=== PATIENT | female | born 1950 | race Caucasian/White ===

== ENCOUNTER 2017-02-27 08:02 | Inpatient (IN) | payer OTHER, MEDICARE ==
[2017-02-27] VITALS (13 sets, daily range): BP systolic 123–143; BP diastolic 58–74; PULSE 79–96; TEMP 36.5–37.5; O2SAT 96–100; Ht 157.5 cm; Wt 94.2 kg
[~2017-02-27] VITALS: Ht 157.5 cm; Wt 94.2 kg
[~2017-02-27 08:02] MED LIST: ACT35 PO; ASPI81TA28 PO; ATRINS INH; BOSE125T PO; BRVIN NEB; BUPR-79 PO; CALC500C70 PO; CHOL100010 PO; CMD3 PO; FRRS300 PO; GLC/500 PO; HYDR-3419 PO; LPT10 PO; LSN25 PO; LSX20 PO; MULT-506 PO; OMEG10002 PO; PANT40TA PO; PARO1TAB29 PO; PLMINS INH; POTA10CA28 PO; PRED-301 PO; SILDINJ PO; XPNINS125 INH; bipap
--- NOTE | 2017-02-27 08:35 | EMERGENCY ROOM VISIT NOTE ---
History Report prepared by Emmanuel: Xi Jackson Under the Supervision of: Dr. Carter Mares M.D. First contact with patient: 08:20 Chief Complaint: HEMATURIA Stated Complaint: BLEEDING WHEN URINATION History of Present Illness The patient is a 67 year old female who presents to the Emergency Room with complaints of worsening hematuria that started over 1 week ago. The patient states that she is on Coumadin and her INR has been high so it is not too uncommon for her to experience hematuria. However, she states that the hematuria currently is worse than it usually is. She states that there are a lot of clots in her urine. The patient denies being in any pain. She denies increased urinary frequency and any pain with urination. The patient states that she does not get UTIs frequently. She is on 5 L of nasal cannula oxygen at baseline secondary pulmonary fibrosis and pulmonary hypertension. Source of History: patient Onset: over 1 week ago Position: other (bladder) Quality: other (hematuria) Timing: worsening Associated Symptoms: No urinary symptoms (increased frequency, burning with urination) Note: no pain Review of Systems All systems have been listed, reviewed, and are negative other than those previously mentioned. Please see Additional Medical History Sheet. Past Medical & Surgical Medical Problems: (1) Chronic respiratory failure with hypoxia and hypercapnia (2) Cor pulmonale (3) DM type 2 (diabetes mellitus, type 2) (4) Dyslipidemia (5) HTN (hypertension) (6) Pulmonary fibrosis (7) Pulmonary HTN Surgical Problems: (1) History of tonsillectomy Family History Cancer Heart disease Seizures Social History Smoking Status: Never Smoker Alcohol Use: none Drug Use: none Marital Status: single Housing Status: lives with family Occupation Status: unemployed Current/Historical Medications Scheduled Aspirin (Aspirin Ec), 81 MG PO DAILY Atorvastatin (Atorvastatin Calcium), 10 MG PO DAILY Bosentan (Tracleer), 125 MG PO BID Bupropion (Wellbutrin Sr), 150 MG PO BID Calcium/Vitamin D (Os-Gil 500 Plus D), 1 TAB PO DAILY Cholecalciferol (Vitamin D3), 1 TAB PO DAILY Ferrous Sulfate (Kp Ferrous Sulfate), 1 TAB PO DAILY Lisinopril (Lisinopril), 10 MG PO DAILY Metformin Hcl (Glucophage), 500 MG PO DAILY Multivitamin (Multivitamin), 1 TAB PO DAILY Paroxetine (Paxil), 40 MG PO QPM Prednisone Tab (Prednisone), 10 MG PO DAILY Sildenafil Citrate (Revatio), 3 TABS PO TID Warfarin Sod (Jantoven), 3 MG PO 3XWK Warfarin Sod (Jantoven), 4.5 MG PO 4XWK Scheduled PRN Acetylcysteine (Acetylcysteine), INH for Shortness of Breath Albuterol Sulf (Proventil 0.083% 2.5MG/3ML), 2.5 MG INH Q6H PRN for Shortness of Breath Furosemide (Furosemide), 2 TAB PO DAILY PRN for edema Furosemide (Lasix), 40 MG PO DAILY PRN for edema Potassium Chloride (Micro-K Ext Rel), 20 MEQ PO DAILY PRN for with Lasix Allergies Coded Allergies: Adhesives (Verified Allergy, Unknown, welts, 02/27/17) No Known Drug Allergy (Verified Allergy, Unknown, none, 02/27/17) Physical Exam Vital Signs Date Time Temp Pulse Resp B/P (MAP) Pulse Ox O2 Delivery O2 Flow Rate FiO2 02/27/17 11:45 100 Nasal Cannula 6.0 02/27/17 10:10 86 18 149/67 100 Nasal Cannula 6.0 02/27/17 08:06 36.8 96 20 151/73 98 Nasal Cannula 4.0 Physical Exam GENERAL: Patient awake, alert, oriented x 3. Patient follows commands. Patient does not appear toxic. Patient is adequately hydrated and well- nourished. SKIN: No erythema, pallor, cyanosis or rash HEENT: Normal head, pupils equal, reactive to light and accommodation. LUNGS: Wheezes bilaterally. No rales or rhonchi. HEART: Grade 3/6 systolic murmur. No gallops. No rubs ABDOMEN: Soft, nontender. EXTREMITIES: No signs of trauma or infection. NEUROLOGIC: Cranial nerves II-XII within normal limits. No gross motor sensory function deficits. Medical Decision & Procedures Laboratory Results 02/27/17 08:36 Red Blood Count 2.85, Mean Corpuscular Volume 93.3, Mean Corpuscular Hemoglobin 28.1, Mean Corpuscular Hemoglobin Concent 30.1, Mean Platelet Volume 8.5, Neutrophils (%) (Auto) 80.4, Lymphocytes (%) (Auto) 9.5, Monocytes (%) (Auto) 6.8, Eosinophils (%) (Auto) 2.3, Basophils (%) (Auto) 0.7, Neutrophils # (Auto) 6.16, Lymphocytes # (Auto) 0.73, Monocytes # (Auto) 0.52, Eosinophils # (Auto) 0.18, Basophils # (Auto) 0.05 02/27/17 08:36 Test 02/27/17 08:36 White Blood Count 7.66 K/uL (4.8-10.8) Red Blood Count 2.85 M/uL (4.2-5.4) Hemoglobin 8.0 g/dL (12.0-16.0) Hematocrit 26.6 % (37-47) Mean Corpuscular Volume 93.3 fL (80-100) Mean Corpuscular Hemoglobin 28.1 pg (25-34) Mean Corpuscular Hemoglobin Concent 30.1 g/dl (32-36) Platelet Count 252 K/uL (130-400) Mean Platelet Volume 8.5 fL (7.4-10.4) Neutrophils (%) (Auto) 80.4 % Lymphocytes (%) (Auto) 9.5 % Monocytes (%) (Auto) 6.8 % Eosinophils (%) (Auto) 2.3 % Basophils (%) (Auto) 0.7 % Neutrophils # (Auto) 6.16 K/uL (1.4-6.5) Lymphocytes # (Auto) 0.73 K/uL (1.2-3.4) Monocytes # (Auto) 0.52 K/uL (0.11-0.59) Eosinophils # (Auto) 0.18 K/uL (0-0.5) Basophils # (Auto) 0.05 K/uL (0-0.2) RDW Standard Deviation 47.8 fL (36.4-46.3) RDW Coefficient of Variation 13.9 % (11.5-14.5) Immature Granulocyte % (Auto) 0.3 % Immature Granulocyte # (Auto) 0.02 K/uL (0.00-0.02) Red Blood Cell Morphology Unremarkable Prothrombin Time 56.6 SECONDS (9.0-12.0) Prothromb Time International Ratio 4.9 (0.9-1.1) Activated Partial Thromboplast Time 53.5 SECONDS (21.0-31.0) Partial Thromboplastin Ratio 2.1 Urine Color RED Urine Appearance TURBID (CLEAR) Urine pH 7.0 (4.5-7.5) Urine Specific [place] 1.025 (1.000-1.030) Urine Protein 3+ (NEG) Urine Glucose (UA) TRACE (NEG) Urine Ketones TRACE (NEG) Urine Occult Blood 3+ (NEG) Urine Nitrite NEG (NEG) Urine Bilirubin NEG (NEG) Urine Urobilinogen NEG (NEG) Urine Leukocyte Esterase NEG (NEG) Urine RBC >30 /hpf (0-4) Urine WBC >30 /hpf (0-5) Urine Epithelial Cells 5-10 /lpf (0-5) Urine Bacteria NEG (NEG) Urine Hyaline Casts 1-5 /lpf (0-5) Anion Gap 0.0 mmol/L (3-11) Est Creatinine Clear Calc Drug Dose 52.8 ml/min Estimated GFR () 59.7 Estimated GFR (Non- 51.5 BUN/Creatinine Ratio 17.3 (10-20) Calcium Level 9.2 mg/dl (8.5-10.1) Laboratory results as stated above per my review. ED Course 0821: Past medical records reviewed. The patient was evaluated in room A10. A complete history and physical examination was performed. 1115: Upon reevaluation, the patient is resting comfortably.I discussed today's findings with her. She verbalized agreement of the treatment plan. She will be evaluated for further management. 1121: Discussed the patient's case with April IRENE of the [facility]. The patient will be evaluated for further management. Medical Decision Nurses notes reviewed. Medical history sheet reviewed. Differential diagnosis includes but is not limited to: coagulopathy secondary to warfarin, urinary tract infection. The patient is here with significant hematuria. The patient's been taking her Coumadin in varying doses. Current INR is significantly elevated. I do not believe she needs reverse but she will stop the Coumadin for at least 2 days. Her hemoglobin is 8. She has significant comorbid problems in light of the above. I believe the patient will require further evaluation in the hospital. The patient was typed and crossed her in ED. I discussed care with the patient and with the hospitalist. Medication Reconcilliation Current Medication List: was personally reviewed by me Blood Pressure Screening Patient's blood pressure: Elevated blood pressure Referred to hospitalist Consults Time Called: 1118 [facility] Phys[facility] Returned Call: 1121 Discussed the patient's case with April IRENE of the [facility]. The patient will be evaluated for further management. Impression Primary Impression: Warfarin-induced coagulopathy Additional Impressions: Hematuria Anemia Scribe Attestation The scribe's documentation has been prepared under my direction and personally reviewed by me in its entirety. I confirm that the note above accurately reflects all work, treatment, procedures, and medical decision making performed by me. Departure Information Dispostion Being Evaluated By Hospitalist Referrals Laly Jason D.O. (PCP) Patient Instructions My [facility] Problem Qualifiers Additional Impressions: Hematuria Hematuria type: unspecified type Qualified Codes: R31.9 - Hematuria, unspecified Anemia Anemia type: unspecified type Qualified Codes: D64.9 - Anemia, unspecified
[2017-02-27 08:48] LABS: BASO % 0.7 %; BASO ABS # 0.05 K/uL (0-0.2); EOS % 2.3 %; HEMATOCRIT 26.6 % (37-47); IG% 0.3 %; LYMPH % 9.5 %; LYMPH ABS # 0.73 K/uL (1.2-3.4); MEAN CELL VOLUME 93.3 fL (80-100); MEAN CORPUSCULAR HEMOGLOBIN 28.1 pg (25-34); MEAN CORPUSCULAR HGB CONC 30.1 g/dl (32-36); MEAN PLATELET VOLUME 8.5 fL (7.4-10.4); MONO % 6.8 %; NEUT % 80.4 %; PLATELET COUNT 252 K/uL (130-400); RED BLOOD COUNT 2.85 M/uL (4.2-5.4); WHITE BLOOD COUNT 7.66 K/uL (4.8-10.8)
[2017-02-27 09:05] LABS: PARTIAL THROMBOPLASTIN RATIO 2.1; PROTHROMBIN TIME (PATIENT) 56.6 SECONDS (9.0-12.0)
[2017-02-27 09:06] LABS: BUN/CREATININE RATIO 17.3 (10-20); CALCIUM 9.2 mg/dl (8.5-10.1); CREATININE 1.1 mg/dl (0.60-1.20); POTASSIUM 4.2 mmol/L (3.5-5.1)
[2017-02-27 09:07] LABS: MANUAL MICROSCOPIC REQUIRED? YES; URINE APPEARANCE TURBID (CLEAR); URINE BILIRUBIN NEG (NEG); URINE COLOR RED; URINE NITRITE NEG (NEG); URINE SPECIFIC GRAVITY 1.025 (1.000-1.030); UROBILINOGEN NEG (NEG)
[2017-02-27 09:11] LABS: REVIEW REQ? NO
[2017-02-27 09:13] LABS: URINE WBC >30 /hpf (0-5)
[2017-02-27 09:14] LABS: URINE BACTERIA NEG (NEG); URINE RBC >30 /hpf (0-4)
[2017-02-27 09:15] LABS: ZZUR CULT IF INDIC CLEAN CATCH YES
[2017-02-27 09:16] LABS: INR 4.9 (0.9-1.1)
[2017-02-27 09:22] LABS: COMPLETE YES
[2017-02-27] MEDS ORDERED: SILD1TAB25 PO (09:50)
[2017-02-27] MEDS ORDERED: PRED10TA PO (09:50)
[2017-02-27] MEDS ORDERED: FERR1TAB13 PO (09:51)
[2017-02-27] MEDS ORDERED: ERGO500037 PO (09:51)
[2017-02-27] MEDS ORDERED: ARFO15NE NEB (09:51)
[2017-02-27] MEDS ORDERED: ONDANSETRON INJ 2 MG/ML 2 ML VIAL IV PRN (12:15)
[2017-02-27] MEDS ORDERED: OPTIRAY 320 IV PRN (12:30)
[2017-02-27] MEDS ORDERED: WARF3TAB6 PO ×2 (12:45)
[2017-02-27] MEDS ORDERED: ALBINS/ INH (12:45)
[2017-02-27] MEDS ORDERED: ACET10SO3 INH (12:45)
[2017-02-27] MEDS ORDERED: CHOL1000 PO (12:45)
[2017-02-27] MEDS ORDERED: LISI-461 PO (12:45)
[2017-02-27] MEDS ORDERED: FURO20TA PO (12:45)
[2017-02-27] MEDS ORDERED: GLUCAGON FOR INJ 1 MG VIAL SQ PRN (13:00)
[2017-02-27] MEDS ORDERED: DEXTROSE 50% 50 ML SYR IV PRN (13:00)
[2017-02-27] MEDS ORDERED: GLUCOSE 10 TABS/TUBE PO PRN (13:00)
[2017-02-27] MEDS ORDERED: GLUCOSE 40% GEL 15 GM TUBE PO PRN (13:00)
--- NOTE | 2017-02-27 13:12 | DIAGNOSTIC IMAGING REPORT ---
CT OF THE ABDOMEN AND PELVIS WITH CONTRAST CLINICAL HISTORY: Hematuria. COMPARISON STUDY: None. TECHNIQUE: Following IV administration of 93 mL of Optiray-320, axial images of the abdomen and pelvis were obtained from the lung bases to the proximal femurs. Images were reviewed in the axial, sagittal, and coronal planes. IV contrast was administered without complication. A dose lowering technique was utilized adhering to the principles of ALARA. CT DOSE: 955.97 mGy.cm FINDINGS: Visualized portions of the lower lungs demonstrate diffuse groundglass opacity with subpleural reticulation opacities which reflects chronic interstitial lung disease. Several calcified pleural plaques are noted. This is been shown on prior exams. The liver, spleen, adrenal glands and pancreas are unremarkable with exception of a 6 mm hypodense right hepatic lobe lesion which is too small to characterize. There is a 1.2 cm cyst within the midpole of the left kidney. A 1 cm left renal lesion is too small to characterize. Several additional hypodense subcentimeter renal lesions are too small to characterize. There is no evidence for a bowel obstruction. The appendix is normal. There is sigmoid diverticulosis without evidence of acute diverticulitis. Note is made of a 4 cm water attenuation right adnexal lesion which likely arises from the right ovary. There is a 2.1 cm lesion within the right posterior lateral aspect of the bladder which likely enhances. There is no hydronephrosis or hydroureter. Sensitivity for detection of upper tract urothelial lesions is diminished given the lack of delayed phase imaging. There are no suspicious osseous lesions. No lymphadenopathy is present. IMPRESSION: 1. 2.1 cm mass within the right posterolateral aspect of the bladder which is highly suggestive of transitional cell carcinoma. No hydronephrosis. Urologic consultation is recommended. 2. 4 cm water attenuation right adnexal lesion likely arising from the right ovary. This may reflect a cyst but is abnormal is a postmenopausal patient and a nonemergent pelvic ultrasound is recommended. 3. 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 Multifocal groundglass opacities with subpleural reticulation which have been shown on prior exams and suggests interstitial lung disease. Electronically signed by: Isaac Wells M.D. 02/27/2017 1:11 PM Dictated Date/Time: 02/27/2017 12:56 PM
[2017-02-27] MEDS ORDERED: PHYTONADIONE 5 MG TAB PO ONE (13:30)
--- NOTE | 2017-02-27 14:07 | History and Physical ---
History & Physical Date & Time of Service: Feb 27, 2017 ~ 11:45 Chief Complaint: Blood in Urine Primary Care Physician: Laney Verdugo D.O. History of Present Illness 67 year old female who presents to the ER with blood in her urine. Patient has been on Coumadin for the past several years and reports that when her INR gets too high she will notice a small amount of blood in her urine. She reports over the past week she has had a significant amount of blood in her urine with clots. She denies dysuria. She has chronic shortness of breath at baseline which she reports has been worsening over the past few weeks. She reports mild lightheadedness and dizziness. She denies any syncopal events. No chest pain. She reports her cough is at baseline. She denies abdominal pain, nausea, vomiting, diarrhea. BRBPR, or dark tarry stools. She denies fever and chills. In the ER, patient's hgb is 8.0 (baseline ~ 10.0). INR is 4.9. She is hemodynamically stable. She was type and crossed for 2 units PRBC. Past Medical/Surgical History Medical Problems: (1) Chronic respiratory failure with hypoxia and hypercapnia Status: Chronic (2) Cor pulmonale Status: Chronic (3) DM type 2 (diabetes mellitus, type 2) Status: Chronic (4) Dyslipidemia Status: Chronic (5) HTN (hypertension) Status: Chronic (6) Pulmonary fibrosis Status: Chronic (7) Pulmonary HTN Status: Chronic Surgical Problems: (1) History of tonsillectomy Status: Chronic Social History Smoking Status: Former Smoker Alcohol Use: none Immunizations History of Influenza Vaccine: Yes Influenza Vaccine Date: Apr 27, 2016 History of Tetanus Vaccine?: Yes Tetanus Immunization Date: May 11, 2014 History of Pneumococcal: Yes Pneumococcal Date: Apr 27, 2016 Multi-Drug Resistant Organisms History of MDRO: Yes Allergies Coded Allergies: Adhesives (Verified Allergy, Unknown, welts, 02/27/17) No Known Drug Allergy (Verified Allergy, Unknown, none, 02/27/17) Home Medications Scheduled Aspirin (Aspirin Ec), 81 MG PO DAILY Atorvastatin (Atorvastatin Calcium), 10 MG PO DAILY Bosentan (Tracleer), 125 MG PO BID Bupropion (Wellbutrin Sr), 150 MG PO BID Calcium/Vitamin D (Os-Gil 500 Plus D), 1 TAB PO DAILY Cholecalciferol (Vitamin D3), 1 TAB PO DAILY Ferrous Sulfate (Kp Ferrous Sulfate), 1 TAB PO DAILY Lisinopril (Lisinopril), 10 MG PO DAILY Metformin Hcl (Glucophage), 500 MG PO DAILY Multivitamin (Multivitamin), 1 TAB PO DAILY Paroxetine (Paxil), 40 MG PO QPM Prednisone Tab (Prednisone), 10 MG PO DAILY Sildenafil Citrate (Revatio), 3 TABS PO TID Warfarin Sod (Jantoven), 3 MG PO 3XWK Warfarin Sod (Jantoven), 4.5 MG PO 4XWK Scheduled PRN Acetylcysteine (Acetylcysteine), INH for Shortness of Breath Albuterol Sulf (Proventil 0.083% 2.5MG/3ML), 2.5 MG INH Q6H PRN for Shortness of Breath Furosemide (Furosemide), 2 TAB PO DAILY PRN for edema Furosemide (Lasix), 40 MG PO DAILY PRN for edema Potassium Chloride (Micro-K Ext Rel), 20 MEQ PO DAILY PRN for with Lasix Review of Systems ROS per HPI, all other systems reviewed and negative Physical Exam Vital Signs Date Time Temp Pulse Resp B/P (MAP) Pulse Ox O2 Delivery O2 Flow Rate FiO2 02/27/17 12:26 82 18 143/64 100 02/27/17 12:17 82 143/64 100 Room Air 02/27/17 11:45 100 Nasal Cannula 6.0 02/27/17 10:10 86 18 149/67 100 Nasal Cannula 6.0 02/27/17 08:06 36.8 96 20 151/73 98 Nasal Cannula 4.0 General Appearance: no apparent distress Head: normocephalic Eyes: normal inspection ENT: hearing grossly normal Neck: supple, no JVD Respiratory/Chest: no respiratory distress, + wheezing (scattered, inspiratory and expiratory), + pertinent finding (coarse breath sounds BL) Cardiovascular: regular rate, rhythm, no edema, normal peripheral pulses Abdomen/GI: normal bowel sounds, non tender, soft Extremities/Musculoskelatal: normal inspection, no calf tenderness Neurologic/Psych: no motor/sensory deficits, alert, normal mood/affect, oriented x 3 Skin: normal color, warm/dry Diagnostics Laboratory Results Results Past 24 Hours Test 02/27/17 08:36 Range/Units White Blood Count 7.66 4.8-10.8 K/uL Red Blood Count 2.85 4.2-5.4 M/uL Hemoglobin 8.0 12.0-16.0 g/dL Hematocrit 26.6 37-47 % Mean Corpuscular Volume 93.3 80-100 fL Mean Corpuscular Hemoglobin 28.1 25-34 pg Mean Corpuscular Hemoglobin Concent 30.1 32-36 g/dl Platelet Count 252 130-400 K/uL Mean Platelet Volume 8.5 7.4-10.4 fL Neutrophils (%) (Auto) 80.4 % Lymphocytes (%) (Auto) 9.5 % Monocytes (%) (Auto) 6.8 % Eosinophils (%) (Auto) 2.3 % Basophils (%) (Auto) 0.7 % Neutrophils # (Auto) 6.16 1.4-6.5 K/uL Lymphocytes # (Auto) 0.73 1.2-3.4 K/uL Monocytes # (Auto) 0.52 0.11-0.59 K/uL Eosinophils # (Auto) 0.18 0-0.5 K/uL Basophils # (Auto) 0.05 0-0.2 K/uL RDW Standard Deviation 47.8 36.4-46.3 fL RDW Coefficient of Variation 13.9 11.5-14.5 % Immature Granulocyte % (Auto) 0.3 % Immature Granulocyte # (Auto) 0.02 0.00-0.02 K/uL Red Blood Cell Morphology Unremarkable Prothrombin Time 56.6 9.0-12.0 SECONDS Prothromb Time International Ratio 4.9 0.9-1.1 Activated Partial Thromboplast Time 53.5 21.0-31.0 SECONDS Partial Thromboplastin Ratio 2.1 Urine Color RED Urine Appearance TURBID CLEAR Urine pH 7.0 4.5-7.5 Urine Specific [place] 1.025 1.000-1.030 Urine Protein 3+ NEG Urine Glucose (UA) TRACE NEG Urine Ketones TRACE NEG Urine Occult Blood 3+ NEG Urine Nitrite NEG NEG Urine Bilirubin NEG NEG Urine Urobilinogen NEG NEG Urine Leukocyte Esterase NEG NEG Urine RBC >30 0-4 /hpf Urine WBC >30 0-5 /hpf Urine Epithelial Cells 5-10 0-5 /lpf Urine Bacteria NEG NEG Urine Hyaline Casts 1-5 0-5 /lpf Sodium Level 139 136-145 mmol/L Potassium Level 4.2 3.5-5.1 mmol/L Chloride Level 97 98-107 mmol/L Carbon Dioxide Level 42 21-32 mmol/L Anion Gap 0.0 3-11 mmol/L Blood Urea Nitrogen 19 7-18 mg/dl Creatinine 1.10 0.60-1.20 mg/dl Est Creatinine Clear Calc Drug Dose 52.8 ml/min Estimated GFR () 59.7 Estimated GFR (Non- 51.5 BUN/Creatinine Ratio 17.3 10-20 Random Glucose 211 70-99 mg/dl Calcium Level 9.2 8.5-10.1 mg/dl Microbiology Results 02/27/17 Urine Culture, Received Pending Diagnostic Radiology CT ABD/PELVIS IMPRESSION: 1. 2.1 cm mass within the right posterolateral aspect of the bladder which is highly suggestive of transitional cell carcinoma. No hydronephrosis. Urologic consultation is recommended. 2. 4 cm water attenuation right adnexal lesion likely arising from the right ovary. This may reflect a cyst but is abnormal is a postmenopausal patient and a nonemergent pelvic ultrasound is recommended. 3. 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 Multifocal groundglass opacities with subpleural reticulation which have been shown on prior exams and suggests interstitial lung disease. Impression Assessment and Plan HEMATURIA, NEWLY DIAGNOSED BLADDER TUMOR ANEMIA - admit to med/surg - patient presenting with one week of hematuria with clots; reports she has a long standing history of intermittent mild hematuria when her INR is too high; denies prior work up - in the ER, hgb 8.0 (baseline ~ 10), INR 4.9 - will given Vit K 5mg PO and transfuse 2 units PRBC; hold Coumadin - CT showing 2.1 cm mass within the right posterolateral aspect of the bladder which is highly suggestive of transitional cell carcinoma and also right adnexal lesion (US has been ordered for follow up of adnexal lesion) - urology consult PULMONARY FIBROSIS, CHRONIC HYPERCAPNIC AND HYPOXIC RESPIRATORY FAILURE - pulmonary status at baseline - saturating well on home amount of O2 - continue prednisone, Revatio, and Tracleer - on Coumadin for PE prevention - pulmonary consult placed regarding continuing Coumadin in light of hematuria and newly diagnosed bladder tumor DM - hgb a1c 5.6 12/2016 - hold oral agents and utilize SSI while hospitalized HTN - BP controlled, continue Lisinopril DYSLIPIDEMIA - continue statin DVT PROPHYLAXIS - SCDs due to hematuria DISPO - In my clinical judgment this beneficiary meets acute admission criteria, established by [facility], that includes being hospitalized through two midnights. Attending Addendum Pt was seen and examined. Agreed with April IRENE physical exam, assessment and plan. 67 yo Female with PMH of pulmonary HTN, Chronic respiratory failure, DM came to the ER fo hematuria. Pt is on Coumadin for thrombus prophylaxis for her pulmonary HTN. Pt said that for the last few days she has been having ongoing hematuria. She said that her SOB has been getting worst. Denies any chest pain, palpitation, dizziness and fever. General- No acute distress Head- atraumatic Eyes- PERRL, EOMI ENT- oropharynx clear Neck- supple, no JVD Lungs- clear to auscultation Heart- regular rhythm; no murmur Abdomen- normal bowel sounds, soft Extremities-no calf tenderness A/P Hematuria Painless hematuria INR on admission 4.9 CT adb/pelvis showed 2.1 cm mass within the right posterolateral aspect of the bladder Highly suspicious for malignancy hold Coumadin Received vit K urology consult monitor h/h Acute blood loss Anemia Hbg on admission 8 INR 4.9 Active hematuria type and cross and will transfuse 2 units consent signed monitor CBC Lab, imaging reviewed Please refer to April IRENE documentation for other problems. Jac Paula MD Advanced Directives Existing Living Will: No Existing Power of Bus Operator: No VTE Prophylaxis VTE Risk Assessment Done? Y/N: Yes Risk Level: Moderate
--- NOTE | 2017-02-27 16:32 | DIAGNOSTIC IMAGING REPORT ---
ULTRASOUND OF THE PELVIS CLINICAL HISTORY: Follow-up right adnexal lesion. COMPARISON STUDY: Pelvic CT dated 02/27/2017. TECHNIQUE: Real-time, grayscale, and color flow sonography of the pelvis is performed both transabdominally and endovaginally. Images are reviewed in the transverse and longitudinal planes. FINDINGS: Uterus: The uterus is normal in size and echotexture, measuring 5.6 x 2.8 x 4.2 cm. Small Nabothian cysts are incidentally noted. Endometrium: The endometrium is normal in appearance, and the endometrial stripe is normal in thickness measuring up to 0.3 cm. Ovaries: The left ovary was not identified. The right ovary measures 6.0 x 3.5 x 4.1 cm. This contains a 5.2 cm simple appearing cystic lesion. Normal Doppler waveforms are shown in the right ovary. Pelvis: There is no free fluid in the cul-de-sac. No concerning adnexal lesion is seen. A 2.2 cm lesion in the right posterior aspect of the bladder is identified and demonstrates internal flow on color imaging. IMPRESSION: 1. There is a 2.2 cm lesion in the right posterior aspect of the bladder with internal flow on color imaging. This should be considered transitional cell carcinoma until proven otherwise. 2. There is a 5.2 cm simple appearing cystic lesion identified in the right ovary. This is pathologically indeterminant but of low suspicion. A precautionary 3 month follow-up ultrasound of the pelvis is recommended for reassessment. 3. The left ovary was not visualized. 4. The uterus was normal in appearance. Electronically signed by: Juventino Hanson M.D. 02/27/2017 4:30 PM Dictated Date/Time: 02/27/2017 4:26 PM
--- NOTE | 2017-02-27 16:37 | Urology Consultation ---
History General Date of Service: Feb 27, 2017. Chief Complaint: gross hematuria Primary Care Physician: Laney Verdugo D.O. Pt seen a urologist before?: No History of Present Illness I am asked by April Salas to evaluate and treat patient for gross hematuria. She has had gross hematuria last year or 2 with high INRs but last week bleeding has been different and worse. She has been passing large clots. She had a ct and ultrasound in ER. She was found to have bladder mass. Her inr is 4. She has had vitamin K. Imaging Imaging: CT, Ultrasound Laboratory Results Past 24 Hours Test 02/27/17 08:36 Range/Units White Blood Count 7.66 4.8-10.8 K/uL Red Blood Count 2.85 4.2-5.4 M/uL Hemoglobin 8.0 12.0-16.0 g/dL Hematocrit 26.6 37-47 % Mean Corpuscular Volume 93.3 80-100 fL Mean Corpuscular Hemoglobin 28.1 25-34 pg Mean Corpuscular Hemoglobin Concent 30.1 32-36 g/dl Platelet Count 252 130-400 K/uL Mean Platelet Volume 8.5 7.4-10.4 fL Neutrophils (%) (Auto) 80.4 % Lymphocytes (%) (Auto) 9.5 % Monocytes (%) (Auto) 6.8 % Eosinophils (%) (Auto) 2.3 % Basophils (%) (Auto) 0.7 % Neutrophils # (Auto) 6.16 1.4-6.5 K/uL Lymphocytes # (Auto) 0.73 1.2-3.4 K/uL Monocytes # (Auto) 0.52 0.11-0.59 K/uL Eosinophils # (Auto) 0.18 0-0.5 K/uL Basophils # (Auto) 0.05 0-0.2 K/uL RDW Standard Deviation 47.8 36.4-46.3 fL RDW Coefficient of Variation 13.9 11.5-14.5 % Immature Granulocyte % (Auto) 0.3 % Immature Granulocyte # (Auto) 0.02 0.00-0.02 K/uL Red Blood Cell Morphology Unremarkable Prothrombin Time 56.6 9.0-12.0 SECONDS Prothromb Time International Ratio 4.9 0.9-1.1 Activated Partial Thromboplast Time 53.5 21.0-31.0 SECONDS Partial Thromboplastin Ratio 2.1 Urine Color RED Urine Appearance TURBID CLEAR Urine pH 7.0 4.5-7.5 Urine Specific [place] 1.025 1.000-1.030 Urine Protein 3+ NEG Urine Glucose (UA) TRACE NEG Urine Ketones TRACE NEG Urine Occult Blood 3+ NEG Urine Nitrite NEG NEG Urine Bilirubin NEG NEG Urine Urobilinogen NEG NEG Urine Leukocyte Esterase NEG NEG Urine RBC >30 0-4 /hpf Urine WBC >30 0-5 /hpf Urine Epithelial Cells 5-10 0-5 /lpf Urine Bacteria NEG NEG Urine Hyaline Casts 1-5 0-5 /lpf Sodium Level 139 136-145 mmol/L Potassium Level 4.2 3.5-5.1 mmol/L Chloride Level 97 98-107 mmol/L Carbon Dioxide Level 42 21-32 mmol/L Anion Gap 0.0 3-11 mmol/L Blood Urea Nitrogen 19 7-18 mg/dl Creatinine 1.10 0.60-1.20 mg/dl Est Creatinine Clear Calc Drug Dose 52.8 ml/min Estimated GFR () 59.7 Estimated GFR (Non- 51.5 BUN/Creatinine Ratio 17.3 10-20 Random Glucose 211 70-99 mg/dl Calcium Level 9.2 8.5-10.1 mg/dl Microbiology Results 02/27/17 Urine Culture, Received Pending Labs were reviewed and are within normal limits unless listed below. Labs are available in the chart and at [facility] Past History hypertension, lung disease, other (obesity, pulmonary hypertension, pulmonary fibrosis, pt denies right hear failure ) Family History Cardiac disorder FATHER sister and 2 uncles stomach cancer, mother colon cancer met to brain, father CAD Social History Hx Tobacco Use In Past Year?: No Smoking: quit greater than 1 year (smoked for over 30 years, quit in her 50's ) Alcohol: never Drug use: none Marital status: Housing status: lives with family Occupation status: retired Immunizations History of Influenza Vaccine: Yes Influenza Vaccine Date: Apr 27, 2016 History of Tetanus Vaccine?: Yes Tetanus Immunization Date: May 11, 2014 History of Pneumococcal: Yes Pneumococcal Date: Apr 27, 2016 History of MDRO Yes Allergies Coded Allergies: Adhesives (Verified Allergy, Unknown, welts, 02/27/17) No Known Drug Allergy (Verified Allergy, Unknown, none, 02/27/17) Medications Home Medications: Home Meds and Scripts Medications Dose Route/Sig Max Daily Dose Days Date Category Dose Instructions Vitamin D3 (Cholecalciferol) 1,000 Unit Tab 1 Tab PO DAILY 30 02/27/17 Reported Acetylcysteine 10 % Lisa INH PRN 02/27/17 Reported Lisinopril 10 Mg Tab 10 Mg PO DAILY 02/27/17 Reported Lasix (Furosemide) 20 Mg Tab 40 Mg PO DAILY PRN 02/27/17 Reported Proventil 0.083% 2.5MG/3ML (Albuterol Sulf) 2.5 Mg/3 Ml Nebu 2.5 Mg INH Q6H PRN 02/27/17 Reported Jantoven (Warfarin Sodium) 3 Mg Tab 4.5 Mg PO 4XWK 02/27/17 Reported TuThSaSu Jantoven (Warfarin Sodium) 3 Mg Tab 3 Mg PO 3XWK 02/27/17 Reported MWF Kp Ferrous Sulfate (Ferrous Sulfate) 325 Mg Tab 1 Tab PO DAILY 30 02/27/17 Reported Prednisone 10 Mg Tab 10 Mg PO DAILY 02/27/17 Reported Revatio (Sildenafil Citrate) 20 Mg Tab 3 Tabs PO TID 02/27/17 Reported Micro-K Ext Rel (Potassium Chloride) 10 Meq Capcr 20 Meq PO DAILY PRN 06/09/14 Reported Furosemide 20 Mg Tab 2 Tab PO DAILY PRN 06/09/14 Reported Os-Gil 500 Plus D (Calcium/Vitamin D) Tab 1 Tab PO DAILY 06/09/14 Reported Atorvastatin Calcium (Atorvastatin) 10 Mg Tab 10 Mg PO DAILY 06/08/14 Reported Aspirin Ec (Aspirin) 81 Mg Tab 81 Mg PO DAILY 06/08/14 Reported Wellbutrin Sr (Bupropion HCl) 150 Mg Ertab 150 Mg PO BID 03/26/14 Reported Glucophage (Metformin Hcl) 500 Mg Tab 500 Mg PO DAILY 03/26/14 Reported Multivitamin (Multivitamins) Tab 1 Tab PO DAILY 04/15/09 Reported Paxil (Paroxetine HCl) 40 Mg Tab 40 Mg PO QPM 04/15/09 Reported Tracleer (Bosentan) 125 Mg Tab 125 Mg PO BID 04/15/09 Reported Inpatient Medications: Current Inpatient Medications Medications (Trade) Dose Ordered Sig/Aurelia Route Start Time Stop Time Status Last Admin Dose Admin Acetaminophen (Tylenol Tab) 650 mg Q4H PRN PO 02/27/17 12:15 03/29/17 12:14 Ondansetron HCl (Zofran Inj) 4 mg Q6H PRN IV 02/27/17 12:15 03/29/17 12:14 Ioversol (Optiray 320) 100 ml UD PRN IV 02/27/17 12:30 03/03/17 12:29 Insulin Aspart (novoLOG ASPART) SLIDING SCALE If C... ACHS SC 02/27/17 16:30 03/29/17 16:29 Glucose (Glucose 40% Gel) 15-30 GRAMS 15 GRAMS... UD PRN PO 02/27/17 13:00 03/29/17 12:59 Glucose (Glucose Chew Tab) 4-8 Tablets 4 Tabl... UD PRN PO 02/27/17 13:00 03/29/17 12:59 Dextrose (Dextrose 50% 50ML Syringe) 25-50ML OF 50% DW IV FOR... UD PRN IV 02/27/17 13:00 03/29/17 12:59 Glucagon (Glucagon Inj) 1 mg UD PRN SQ 02/27/17 13:00 03/29/17 12:59 Review of Systems Review of Systems Constitutional: No fever, No chills, No weight loss Neurological: + dizzy, + problem reported (weakness and tired) Endocrine: + too cold, + tired/sluggish, No excessive thirst, No too hot Gastrointestinal: No abdominal pain, No indigestion, No nausea, No vomiting, No constipation, No diarrhea Cardiovascular: No chest pain, No palpitations, No swelling ankles/feet Respiratory: + shortness of breath, No wheezing, No chronic cough Musculoskeletal: + joint pain Blood / Lymphatic: + bleed easily Female : + frequent urination, + blood in urine, + leaking urine Physical Exam Vital Signs: Vital Signs Past 12 Hours Date Time Temp Pulse Resp B/P (MAP) Pulse Ox O2 Delivery O2 Flow Rate FiO2 02/27/17 12:26 82 18 143/64 100 02/27/17 12:17 82 143/64 100 Room Air 02/27/17 11:45 100 Nasal Cannula 6.0 02/27/17 10:10 86 18 149/67 100 Nasal Cannula 6.0 02/27/17 08:06 36.8 96 20 151/73 98 Nasal Cannula 4.0 Physical Exam: General Appearance: WD/WN, no apparent distress, + obese Eyes: bilateral eyes normal inspection ENT: hearing grossly normal Neck: supple, no adenopathy, no JVD, trachea midline Respiratory/Chest: no respiratory distress, no accessory muscle use Gastrointestinal: Abdomen: normal abdomen, pertinent finding (obesity limits exam of internal organs) Extremities: normal range of motion, non-tender, normal inspection, no pedal edema, no calf tenderness, normal capillary refill Neurologic/Psychiatric: alert, normal mood/affect, oriented x 3 Skin: normal color, warm/dry, no rash Assessment & Plan Assessment & Plan gross hematuria and ct and pelvic ultrasound imaging suggestive of bladder tumor. she will need cysto and if tumor confirmed a TURBT I have called anesthesia to evaluate her for her suitability for surgery here at [facility]. Her rn clinical trials feels a spinal anesthetic should be tolerable with her illnesses. I would propose a surgical date of next 2016 as an outpatient procedure. She will stay off coumadin until surgery, perhaps indefinitely.
--- NOTE | 2017-02-27 16:47 | Pulmonary Consultation ---
History General Date of Service: Feb 27, 2017. Stated Complaint: Hematuria HPI The patient is a 67 year old female who presents to [facility] with complaints of Hematuria. The patient's primary care provider is Laney Verdugo D.O.. This is a 59-year-old female who was admitted to the [facility] with a presentation of blood in her urine. 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 The patient has a past medical history significant of interstitial lung disease with associated cor pulmonale and chronic hypoxemia. She has noted a history of intermittent hematuria with an elevated INR. She notes a one-week history of significant bloody urine with intermittent clots. She also notes a baseline nonproductive cough and chronic shortness of breath/dyspnea on exertion which has been progressive over the last week. She currently denies: Dysuria, syncope , nausea, vomiting, diarrhea and bright red blood or dark tarry stools, fever, chills, pleurisy Work-Up: WBC: 8K PLT: 252K H/H: 04/02 INR: 4.9 aPTT: 53.5 BUN/Cr: 19/1.10 EKG: sinus tachy with new PAC Cardiac Echo (03/03/17) o LV: EF= 55-60%, Mild concentric hypertrophy o RV: TAPSE >1.5cm o RA: Within normal limits o LA: Within normal limits o No ASD detected CT ABD/Pelvis compared to Thorax (06/09/14) Lungs: diffuse GGO, sub-pleural reticulation, pleural calcification Improved aeration of the LLL Pelvis: 2.1cm bladder mass Adnexa: 4cm right ovarian mass PFT 02/24/2016: FVC: 0.98/37 %, FEV1:0.78/37%, FEV1/FVC: 96%, T.99/45%, RV : 0.97/56%,DLCO: 26%, DLCO/VA: 106% PFTs 04/08/15 :FVC: 0.91/34%, FEV1: 0.76/36%, FEV1/FVC: 101%, FEF 25-75%: 0.88/39 % (55% change), VC: 1.20/45%, T.22/50%, RV: 1.02/59%, DLCO: 21%, DLCO/VA: 92% PFT 03/26/2014: FVC: 1.07/40%, FEV1: 0.80/37%, FEV1/FVC: 75%, FEF 25-75 %: 0.61/27%, T.14/48%, RV: 1.07/62%, DLCO: 20%, DLCO/VA: 138% Echocardiogram: 03/03/2015 LV: Mild LVH/EF: 55-60%/ RV: Normal size/TAPSE: >1.5cm MD Freida Gonsales [facility] [address] [id number] Historian: patient, family, EMS Review of Systems Constitutional: reports: weakness Eyes: reports: no symptoms ENT: reports: no symptoms Cardiovascular: reports: no symptoms Respiratory: reports: GARZA Gastrointestinal: reports: no symptoms Genitourinary - Female: reports: hematuria Musculoskeletal: reports: myalgias Integumentary: reports: rash (resolving over the left foot) Neurologic: reports: no symptoms Psychiatric: reports: no symptoms Endocrine: no symptoms Hematologic / Lymphatic: no symptoms Allergic / Immunologic: no symptoms Past Medical History Past Medical History: 1) Interstitial lung disease lymphangitic (4L ambulator, 5L rest, 8L with walking) a. VATS SLB 2002 b. SHAHIDIP c. Evaluated for pulmonary transplantation at [facility] d. Currently followed [facility] 2) Pulmonary HTN a. Tracleer: Initiate 2003 with excellent response b. Esbriet started 07/26/2014 (recently d/c secondary to sided effects) 3) Cor Pulmonale 4) Grade I diastolic HF 5) former tobacco use (30-40 pack year, quit 04/2000) 6) h/o colon CA 7) Pulmonary Pseudomonas and Aspergilloses infection 8) MOODY (intolerant to CPAP) 9) DM II 10) GERD 11) obesity Past Surgical History: 1. Colonoscopy (Fiberoptic) 2. Open Lung Biopsy 3. Tonsillectomy With Adenoidectomy Family History Cardiac disorder FATHER 1. Family history of Cancer 2. Family history of colon cancer 3. Family history of Congestive Heart Failure 4. Family history of Cancer 5. Family history of Epilepsy 6. Family history of Cancer 7. Family history of Congestive Heart Failure 8. Family history of Epilepsy Social History Denied: History of Alcohol Use (History) Denied: History of Drug Use Former smoker Denied: History of Home Environment Domestic Violence Denied: History of Housing Without Smoke Detectors Marital History - Uses Safety Equipment - Seatbelts Hx Tobacco Use In Past Year?: No Smoking Status: Former Smoker Alcohol: never Drug Use: none Immunizations History of Influenza Vaccine: Yes Influenza Vaccine Date: Apr 27, 2016 History of Tetanus Vaccine?: Yes Tetanus Immunization Date: May 11, 2014 History of Pneumococcal: Yes Pneumococcal Date: Apr 27, 2016 History of MDRO History of MDRO: Yes Allergies Coded Allergies: Adhesives (Verified Allergy, Unknown, welts, 02/27/17) No Known Drug Allergy (Verified Allergy, Unknown, none, 02/27/17) Current Medications Reported Home Medications Medications Dose Route/Sig Max Daily Dose Days Date Category Dose Instructions Vitamin D3 (Cholecalciferol) 1,000 Unit Tab 1 Tab PO DAILY 30 02/27/17 Reported Acetylcysteine 10 % Lisa INH PRN 02/27/17 Reported Lisinopril 10 Mg Tab 10 Mg PO DAILY 02/27/17 Reported Lasix (Furosemide) 20 Mg Tab 40 Mg PO DAILY PRN 02/27/17 Reported Proventil 0.083% 2.5MG/3ML (Albuterol Sulf) 2.5 Mg/3 Ml Nebu 2.5 Mg INH Q6H PRN 02/27/17 Reported Jantoven (Warfarin Sodium) 3 Mg Tab 4.5 Mg PO 4XWK 02/27/17 Reported TuThSaSu Jantoven (Warfarin Sodium) 3 Mg Tab 3 Mg PO 3XWK 02/27/17 Reported MWF Kp Ferrous Sulfate (Ferrous Sulfate) 325 Mg Tab 1 Tab PO DAILY 30 02/27/17 Reported Prednisone 10 Mg Tab 10 Mg PO DAILY 02/27/17 Reported Revatio (Sildenafil Citrate) 20 Mg Tab 3 Tabs PO TID 02/27/17 Reported Micro-K Ext Rel (Potassium Chloride) 10 Meq Capcr 20 Meq PO DAILY PRN 06/09/14 Reported Furosemide 20 Mg Tab 2 Tab PO DAILY PRN 06/09/14 Reported Os-Gil 500 Plus D (Calcium/Vitamin D) Tab 1 Tab PO DAILY 06/09/14 Reported Atorvastatin Calcium (Atorvastatin) 10 Mg Tab 10 Mg PO DAILY 06/08/14 Reported Aspirin Ec (Aspirin) 81 Mg Tab 81 Mg PO DAILY 06/08/14 Reported Wellbutrin Sr (Bupropion HCl) 150 Mg Ertab 150 Mg PO BID 03/26/14 Reported Glucophage (Metformin Hcl) 500 Mg Tab 500 Mg PO DAILY 03/26/14 Reported Multivitamin (Multivitamins) Tab 1 Tab PO DAILY 04/15/09 Reported Paxil (Paroxetine HCl) 40 Mg Tab 40 Mg PO QPM 04/15/09 Reported Tracleer (Bosentan) 125 Mg Tab 125 Mg PO BID 04/15/09 Reported Physical Physical Exam Vital Signs: Date Time Temp Pulse Resp B/P (MAP) Pulse Ox O2 Delivery O2 Flow Rate FiO2 02/27/17 12:26 82 18 143/64 100 02/27/17 12:17 82 143/64 100 Room Air 02/27/17 11:45 100 Nasal Cannula 6.0 02/27/17 10:10 86 18 149/67 100 Nasal Cannula 6.0 02/27/17 08:06 36.8 96 20 151/73 98 Nasal Cannula 4.0 General Appearance: WELL-APPEARING, NO APPARENT DISTRESS Head: NORMOCEPHALIC, ATRAUMATIC Eyes: PERRLA, NO DISCHARGE, EOMI, SCLERAE NORMAL ENT: NORMAL EAR EXAM, NORMAL NASAL EXAM, NORMAL MOUTH EXAM, NORMAL THROAT EXAM , NORMAL DENTAL EXAM Neck: NORMAL RANGE OF MOTION, NO TENDERNESS, TRACHEA MIDLINE, NO STRIDOR, SUPPLE, NO THYROMEGALY Respiratory: NO RESPIRATORY DISTRESS, rhonchi (at the basis bilaterally ), other (exp velcro ralis ) Cardiovasular: REGULAR RATE/RHYTHM, NORMAL S1S2, NO M/G/R, NO MURMUR, NO GALLOP Abdomen: NON TENDER, NORMAL BOWEL SOUNDS, NO REBOUND, NO MASSES, NO GUARDING, NO ORGANOMEGALY Genitourinary - Female: EXTERNAL GENITALIA NORMAL Back: NORMAL INSPECTION, NO MIDLINE TENDERNESS, NO CVA TENDERNESS Upper Extremities: NO EDEMA, NO DEFORMITY, NORMAL ROM Lower Extremities: NO DEFORMITY, NORMAL ROM, other Edema: Bilateral LE (1+) Pulses: carotid (R) (2+), carotid (L) (2+), posterior tibial (R), posterior tibial (L) (2+) Neuro: ALERT, ORIENTED x 3, NORMAL MOTOR EXAM, NORMAL SENSATION, NORMAL CEREBELLAR EXAM Reflexes: biceps (R) (2+), bicpes (L) (2+), achilles (R) (2+), achilles (L) (2+ ) Babinski Testing: right (downgoing), left (downgoing) Psychiatric: NORMAL AFFECT, NO SUICIDAL IDEATION, CONTRACTS FOR SAFETY Diagnostics Labs Results Past 24 Hours Test 02/27/17 08:36 Range/Units White Blood Count 7.66 4.8-10.8 K/uL Red Blood Count 2.85 4.2-5.4 M/uL Hemoglobin 8.0 12.0-16.0 g/dL Hematocrit 26.6 37-47 % Mean Corpuscular Volume 93.3 80-100 fL Mean Corpuscular Hemoglobin 28.1 25-34 pg Mean Corpuscular Hemoglobin Concent 30.1 32-36 g/dl Platelet Count 252 130-400 K/uL Mean Platelet Volume 8.5 7.4-10.4 fL Neutrophils (%) (Auto) 80.4 % Lymphocytes (%) (Auto) 9.5 % Monocytes (%) (Auto) 6.8 % Eosinophils (%) (Auto) 2.3 % Basophils (%) (Auto) 0.7 % Neutrophils # (Auto) 6.16 1.4-6.5 K/uL Lymphocytes # (Auto) 0.73 1.2-3.4 K/uL Monocytes # (Auto) 0.52 0.11-0.59 K/uL Eosinophils # (Auto) 0.18 0-0.5 K/uL Basophils # (Auto) 0.05 0-0.2 K/uL RDW Standard Deviation 47.8 36.4-46.3 fL RDW Coefficient of Variation 13.9 11.5-14.5 % Immature Granulocyte % (Auto) 0.3 % Immature Granulocyte # (Auto) 0.02 0.00-0.02 K/uL Red Blood Cell Morphology Unremarkable Prothrombin Time 56.6 9.0-12.0 SECONDS Prothromb Time International Ratio 4.9 0.9-1.1 Activated Partial Thromboplast Time 53.5 21.0-31.0 SECONDS Partial Thromboplastin Ratio 2.1 Urine Color RED Urine Appearance TURBID CLEAR Urine pH 7.0 4.5-7.5 Urine Specific [place] 1.025 1.000-1.030 Urine Protein 3+ NEG Urine Glucose (UA) TRACE NEG Urine Ketones TRACE NEG Urine Occult Blood 3+ NEG Urine Nitrite NEG NEG Urine Bilirubin NEG NEG Urine Urobilinogen NEG NEG Urine Leukocyte Esterase NEG NEG Urine RBC >30 0-4 /hpf Urine WBC >30 0-5 /hpf Urine Epithelial Cells 5-10 0-5 /lpf Urine Bacteria NEG NEG Urine Hyaline Casts 1-5 0-5 /lpf Sodium Level 139 136-145 mmol/L Potassium Level 4.2 3.5-5.1 mmol/L Chloride Level 97 98-107 mmol/L Carbon Dioxide Level 42 21-32 mmol/L Anion Gap 0.0 3-11 mmol/L Blood Urea Nitrogen 19 7-18 mg/dl Creatinine 1.10 0.60-1.20 mg/dl Est Creatinine Clear Calc Drug Dose 52.8 ml/min Estimated GFR () 59.7 Estimated GFR (Non- 51.5 BUN/Creatinine Ratio 17.3 10-20 Random Glucose 211 70-99 mg/dl Calcium Level 9.2 8.5-10.1 mg/dl Microbiology Results 02/27/17 Urine Culture, Received Pending Diagnostic Radiology CT ABD/Pelvis compared to Thorax (06/09/14) Lungs: diffuse GGO, sub-pleural reticulation, pleural calcification Improved aeration of the LLL Pelvis: 2.1cm bladder mass Adnexa: 4cm right ovarian mass EKG sinus tachy with new PAC Impression Assessment and Plan 67 y/o female admitted with hematuria and newly discovered bladder mass: 1) Hematuria: At this time the patient's Coumadin will have to be d/c and she can be given Vit K. Coumadin is not indicated at this time for ILD management. If the patient requires Cystoscopy I suggest we avoid general anesthesia and move forward with local or spinal only. 2) ILD/Hypoxemia: Patient should have her Brovana, Xopenex/Atrovent Nebs, Ranitidine, Acetylcysteine Neb, Sildenafil, Tracleer and Prednisone continued at this time and lest start on High Flow O2 especially for the possible intervention.
[2017-02-27] MEDS: ACETYLCYSTEINE 20% INHAL SOLN ***DISPENSED BY RESP. INH SCH ×2 (17:00→19:36)
[2017-02-27] MEDS: INSULIN ASPART 100 UNITS/ML 3 ML PEN SC SCH ×2 (17:21→21:00)
[2017-02-27] MEDS: LEVALBUTEROL 0.63MG/3 ML NEB INH SCH (19:29)
[2017-02-27] MEDS: IPRATROPIUM BROMIDE NEB SOLN 0.02% 2.5 ML VIAL INH SCH (19:29)
[2017-02-27] MEDS: ARFORMOTEROL TART 15MCG/2ML VIAL INH SCH (19:35)
--- NOTE | 2017-02-27 19:45 | Anesthesiology Progress Note ---
Anesthesia Progress Note Date of Service Feb 27, 2017. Progress Notes Anesthesiology was consulted to prepare the patient for a TURBT at a later date. The patient is a 67F h/o pulmonary fibrosis, chronic O2 use, pulmonary HTN , h/o PNAs, HTN, HL, DM, anemia, chronic steroid use. She has been on coumadin for PE/DVT prophylaxis. She was admitted for hematuria. She was found to have a supratherapeutic INR and anemia. Her last dose of coumadin was 02/26/17. Her coagulopathy is currently being reversed, and she is receiving PRBCs. I spoke to the patient about undergoing her procedure under a spinal anesthesia. I explained the risks vs. benefits. We will gather further outpatient documentation as she is followed by Dr. Verdugo from pulmonology and Dr. Hilario from cardiology. Once her coagulopathy has normalized, the patient will be re-evaluated by the anesthesia department. Consent will be obtained once the patient is further optimized.
[2017-02-27] MEDS ORDERED: BOSENTAN PO SCH (21:00)
[2017-02-27] MEDS ORDERED: LEVALBUTEROL/IPRATROPIUM NEB INH SCH (21:00)
[2017-02-27] MEDS: RANITIDINE HCL 150 MG TAB PO SCH (21:10)
[2017-02-27] MEDS: SILDENAFIL CITRATE 20 MG TAB PO SCH (21:10)
[2017-02-27] MEDS: ACETAMINOPHEN 325 MG TAB PO PRN (23:26)
[2017-02-28] VITALS (8 sets, daily range): BP systolic 119–143; BP diastolic 66–76; PULSE 77–111; TEMP 36.9–37.5; O2SAT 90–100
[2017-02-28] MEDS: LEVALBUTEROL 0.63MG/3 ML NEB INH SCH ×4 (01:44→19:15)
[2017-02-28] MEDS: IPRATROPIUM BROMIDE NEB SOLN 0.02% 2.5 ML VIAL INH SCH ×4 (01:44→19:15)
[2017-02-28 05:30] LABS: BASO % 0.6 %; BASO ABS # 0.04 K/uL (0-0.2); EOS % 4.4 %; HEMATOCRIT 30.2 % (37-47); IG% 0.3 %; LYMPH % 17.3 %; LYMPH ABS # 1.23 K/uL (1.2-3.4); MEAN CELL VOLUME 92.1 fL (80-100); MEAN CORPUSCULAR HEMOGLOBIN 26.8 pg (25-34); MEAN CORPUSCULAR HGB CONC 29.1 g/dl (32-36); MEAN PLATELET VOLUME 8.6 fL (7.4-10.4); MONO % 9.7 %; NEUT % 67.7 %; PLATELET COUNT 215 K/uL (130-400); RED BLOOD COUNT 3.28 M/uL (4.2-5.4); WHITE BLOOD COUNT 7.12 K/uL (4.8-10.8)
[2017-02-28 05:40] LABS: INR 1.8 (0.9-1.1); PROTHROMBIN TIME (PATIENT) 20.3 SECONDS (9.0-12.0)
[2017-02-28 05:51] LABS: BUN/CREATININE RATIO 16.7 (10-20); CALCIUM 8.4 mg/dl (8.5-10.1); CREATININE 0.78 mg/dl (0.60-1.20); POTASSIUM 4.2 mmol/L (3.5-5.1)
[2017-02-28 05:53] LABS: COMPLETE YES; STOMATOCYTE 1+
[2017-02-28] MEDS: ACETYLCYSTEINE 20% INHAL SOLN ***DISPENSED BY RESP. INH SCH ×4 (07:27→20:00)
[2017-02-28] MEDS: ARFORMOTEROL TART 15MCG/2ML VIAL INH SCH ×2 (07:27→19:19)
[2017-02-28 07:54] LABS: ARTERIAL BLD GAS O2 SATURATION 98.9 % (90-95); ARTERIAL BLOOD GAS BASE EXCESS 14.2 mEq/L (-9-1.8); ARTERIAL BLOOD GAS HCO3 44 mmol/L (19-24); ARTERIAL BLOOD GAS PO2 174 mm/Hg (80-95); ARTERIAL BLOOD GAS pH 7.29 (7.35-7.45)
[2017-02-28 07:55] LABS: ALLEN TEST POS (POS); O2 ADMINISTRATION 8L
[2017-02-28] MEDS: SILDENAFIL CITRATE 20 MG TAB PO SCH ×3 (08:27→21:09)
[2017-02-28] MEDS: RANITIDINE HCL 150 MG TAB PO SCH ×2 (08:28→21:10)
[2017-02-28] MEDS: INSULIN ASPART 100 UNITS/ML 3 ML PEN SC SCH ×4 (08:30→21:00)
[2017-02-28] MEDS ORDERED: NURSING VERBAL MED ORDER ONE (12:00)
[2017-02-28] MEDS ORDERED: POLYETHYLENE (MIRALAX) 17 GM PACK PO ONE (12:15)
[2017-02-28] MEDS: POLYETHYLENE (MIRALAX) 17 GM PACK PO PRN (12:54)
[2017-02-28] MEDS ORDERED: POTASSIUM CHLORIDE 20 MEQ TABCR PO PRN (13:15)
--- NOTE | 2017-02-28 13:31 | Progress Note ---
Internal Med Progress Note Date of Service: Feb 28, 2017. Provider Documentation: SUBJECTIVE: feels weak and tired no SOB still having hematuria with clots in urine denies of any dizzy spell no lower abdominal pain OBJECTIVE: Vital Signs-as noted below Exam: General-no sign of distress Eyes-sclera non icteric ENT-NAD Neck-no JVD Lungs-CTA , no wheeze or rales Heart-regular S1/S2 Abdomen-soft, non tender Extremities-no lower ext edema Neuro-AAO x3 no focal deficit Lab data as noted below. ASSESSMENT & PLAN: HEMATURIA, LIKELY DUE TO BLADDER TUMOR WHILE ON COUMADIN AND ELEVATED INR - - patient presenting with one week of hematuria with clots; reports she has a long standing history of intermittent mild hematuria when her INR is too high; denies prior work up - in the ER, hgb 8.0 (baseline ~ 10), INR 4.9 - given Vit K 5mg PO S/P transfusion of 2 units PRBC; Coumadin D/enrique - CT showing 2.1 cm mass within the right posterolateral aspect of the bladder which is highly suggestive of transitional cell carcinoma and also right adnexal lesion (US has been ordered for follow up of adnexal lesion) - urology consulted , appreciate input -will need Cystoscopy and possible TURBT suggestive of bladder CA -scheduled for out pt procedure on March 08 at [facility] Coumadin is discontinued indefinitely pt is asked to avoid Aspirin ACUTE BLOOD LOSS ANEMIA : due to above S/p 2 units of PRBC transfusion repeat H&H in AM ordered for vit K today as INR 1.8 , pt still passing clots in urine PULMONARY FIBROSIS, CHRONIC HYPERCAPNIC AND HYPOXIC RESPIRATORY FAILURE - pulmonary status at baseline - saturating well on home amount of O2 - continue prednisone, Revatio, and Tracleer - appreciate input form Pulmonology advanced interstitial lung disease for pre op pulmonary eval -pt can be under general anesthesia /poor candidate for endotracheal intubation and ventilation should under go epidural anesthesia was on Coumadin for prophylaxis against PE -D/enrique for bleeding complication -pt will not be an candidate to resume Coumadin DM - hgb a1c 5.6 12/2016 - hold oral agents and utilize SSI while hospitalized HTN - BP controlled, continue Lisinopril DYSLIPIDEMIA - continue statin DVT PROPHYLAXIS - SCDs due to hematuria FULL CODE DISPOSITION lives at home with daughter complains of generalized weakness /fatigue -possible due to anemia Pt/OT eval requested Daughter updated at bedside Vital Signs: Date Time Temp Pulse Resp B/P (MAP) Pulse Ox O2 Delivery O2 Flow Rate FiO2 02/28/17 08:00 91 Nasal Cannula 5.0 02/28/17 07:28 111 18 90 Nasal Cannula 8.0 02/28/17 07:13 36.9 85 19 143/76 (98) 91 Nasal Cannula 5.0 02/28/17 01:51 78 18 98 Nasal Cannula 5.0 02/28/17 00:00 Nasal Cannula 5.0 02/27/17 22:44 36.5 80 18 131/67 98 5.0 02/27/17 21:47 37.1 96 18 123/60 96 5.0 02/27/17 21:15 37.0 84 18 136/68 96 5.0 02/27/17 21:00 37.1 79 16 133/70 99 5.0 02/27/17 20:35 36.6 82 18 143/73 99 5.0 02/27/17 20:12 36.8 82 18 136/74 99 5.0 02/27/17 19:36 79 18 Nasal Cannula 2.0 02/27/17 19:25 37.5 81 18 131/68 97 5.0 02/27/17 18:15 37.1 82 20 127/58 100 5.0 02/27/17 17:45 37.2 87 20 136/67 99 5.0 02/27/17 17:30 37.4 90 18 137/70 98 5.0 02/27/17 17:08 36.8 87 20 135/71 100 5.0 02/27/17 16:00 Nasal Cannula 5.0 Lab Results: Results Past 24 Hours Test 02/27/17 16:34 02/27/17 19:58 02/28/17 05:16 02/28/17 07:23 Range/Units Bedside Glucose 121 117 145 70-90 mg/dl White Blood Count 7.12 4.8-10.8 K/uL Red Blood Count 3.28 4.2-5.4 M/uL Hemoglobin 8.8 12.0-16.0 g/dL Hematocrit 30.2 37-47 % Mean Corpuscular Volume 92.1 80-100 fL Mean Corpuscular Hemoglobin 26.8 25-34 pg Mean Corpuscular Hemoglobin Concent 29.1 32-36 g/dl Platelet Count 215 130-400 K/uL Mean Platelet Volume 8.6 7.4-10.4 fL Neutrophils (%) (Auto) 67.7 % Lymphocytes (%) (Auto) 17.3 % Monocytes (%) (Auto) 9.7 % Eosinophils (%) (Auto) 4.4 % Basophils (%) (Auto) 0.6 % Neutrophils # (Auto) 4.83 1.4-6.5 K/uL Lymphocytes # (Auto) 1.23 1.2-3.4 K/uL Monocytes # (Auto) 0.69 0.11-0.59 K/uL Eosinophils # (Auto) 0.31 0-0.5 K/uL Basophils # (Auto) 0.04 0-0.2 K/uL RDW Standard Deviation 49.4 36.4-46.3 fL RDW Coefficient of Variation 14.6 11.5-14.5 % Immature Granulocyte % (Auto) 0.3 % Immature Granulocyte # (Auto) 0.02 0.00-0.02 K/uL Stomatocytes 1+ Prothrombin Time 20.3 9.0-12.0 SECONDS Prothromb Time International Ratio 1.8 0.9-1.1 Sodium Level 140 136-145 mmol/L Potassium Level 4.2 3.5-5.1 mmol/L Chloride Level 98 98-107 mmol/L Carbon Dioxide Level 44 21-32 mmol/L Anion Gap -2.0 3-11 mmol/L Blood Urea Nitrogen 13 7-18 mg/dl Creatinine 0.78 0.60-1.20 mg/dl Est Creatinine Clear Calc Drug Dose 74.4 ml/min Estimated GFR () 90.5 Estimated GFR (Non- 78.1 BUN/Creatinine Ratio 16.7 10-20 Random Glucose 123 70-99 mg/dl Calcium Level 8.4 8.5-10.1 mg/dl Test 02/28/17 07:45 02/28/17 11:41 Range/Units Arterial Blood pH 7.29 7.35-7.45 Arterial Blood Partial Pressure CO2 93 35-46 mmHg Arterial Blood Partial Pressure O2 174 80-95 mm/Hg Arterial Blood HCO3 44 19-24 mmol/L Arterial Blood Oxygen Saturation 98.9 90-95 % Arterial Blood Base Excess 14.2 -9-1.8 mEq/L Arterial Blood Gas Delivery 8L Adalberto Test POS POS Bedside Glucose 223 70-90 mg/dl
[2017-02-28] MEDS ORDERED: PHYTONADIONE 5 MG TAB PO ONE (13:45)
[2017-02-28] MEDS: TRACLEER PO SCH (21:07)
[2017-02-28] MEDS: PAROXETINE 20 MG TAB PO SCH (21:08)
[2017-02-28] MEDS: BuPROPion SR 150 MG TABCR PO SCH (21:10)
[2017-02-28] MEDS: ACETAMINOPHEN 325 MG TAB PO PRN (23:41)
[2017-03-01] VITALS (16 sets, daily range): BP systolic 122–161; BP diastolic 65–72; PULSE 78–91; TEMP 36.8–37.2; O2SAT 93–100
[2017-03-01] MEDS: IPRATROPIUM BROMIDE NEB SOLN 0.02% 2.5 ML VIAL INH SCH ×4 (02:35→19:27)
[2017-03-01] MEDS: LEVALBUTEROL 0.63MG/3 ML NEB INH SCH ×4 (02:36→19:27)
[2017-03-01] MEDS: ARFORMOTEROL TART 15MCG/2ML VIAL INH SCH ×2 (07:24→19:27)
[2017-03-01] MEDS: ACETYLCYSTEINE 20% INHAL SOLN ***DISPENSED BY RESP. INH SCH ×4 (07:30→19:27)
[2017-03-01] MEDS: CHOLECALCIFEROL 1000 INTER.UNIT TAB PO SCH (08:05)
[2017-03-01] MEDS: SILDENAFIL CITRATE 20 MG TAB PO SCH ×3 (08:05→20:59)
[2017-03-01] MEDS: ATORVASTATIN 10 MG TAB PO SCH (08:05)
[2017-03-01] MEDS: MULTIVITAMIN TAB PO SCH (08:05)
[2017-03-01] MEDS: FERROUS SULFATE 325 MG TAB PO SCH (08:05)
[2017-03-01] MEDS: CALCIUM 600MG + VIT D 400 IU TAB PO SCH (08:05)
[2017-03-01] MEDS: BuPROPion SR 150 MG TABCR PO SCH ×2 (08:05→21:00)
[2017-03-01] MEDS: LISINOPRIL 10 MG TAB PO SCH (08:06)
[2017-03-01] MEDS: RANITIDINE HCL 150 MG TAB PO SCH ×2 (08:06→21:00)
[2017-03-01] MEDS: TRACLEER PO SCH ×2 (08:07→20:57)
[2017-03-01 08:19] LABS: HEMATOCRIT 28.3 % (37-47); MEAN CELL VOLUME 91.6 fL (80-100); MEAN CORPUSCULAR HEMOGLOBIN 27.8 pg (25-34); MEAN CORPUSCULAR HGB CONC 30.4 g/dl (32-36); MEAN PLATELET VOLUME 8.8 fL (7.4-10.4); PLATELET COUNT 186 K/uL (130-400); RED BLOOD COUNT 3.09 M/uL (4.2-5.4); WHITE BLOOD COUNT 6.32 K/uL (4.8-10.8)
[2017-03-01] MEDS: INSULIN ASPART 100 UNITS/ML 3 ML PEN SC SCH ×4 (08:19→21:00)
[2017-03-01 09:16] LABS: INR 1.1 (0.9-1.1); PROTHROMBIN TIME (PATIENT) 11.6 SECONDS (9.0-12.0)
--- NOTE | 2017-03-01 10:06 | Progress Note ---
Internal Med Progress Note Date of Service: Mar 01, 2017. Provider Documentation: SUBJECTIVE: hematuria cleared last night started to have blood again this am in urine with passage of clots no pain or discomfort with urination still feels tired , no SOB Or GARZA OBJECTIVE: Vital Signs-as noted below Exam: General-no sign of distress Eyes-sclera non icteric ENT-NAD Neck-no JVD Lungs-CTA , no wheeze or rales Heart-regular S1/S2 Abdomen-soft, non tender Extremities-no lower ext edema Neuro-AAO x3 no focal deficit Lab data as noted below. ASSESSMENT & PLAN: HEMATURIA, LIKELY DUE TO BLADDER TUMOR WHILE ON COUMADIN AND ELEVATED INR - improved after correction of coagulopathy with PO vit K INR 1.1 today - patient presented with one week of hematuria with clots; reports she has a long standing history of intermittent mild hematuria when her INR is too high; denies prior work up - in the ER, hgb 8.0 (baseline ~ 10), INR 4.9 - given Vit K 5mg PO S/P transfusion of 2 units PRBC; Coumadin D/enrique - CT showing 2.1 cm mass within the right posterolateral aspect of the bladder which is highly suggestive of transitional cell carcinoma and also right adnexal lesion (US has been ordered for follow up of adnexal lesion) - urology consulted , appreciate input -will need Cystoscopy and possible TURBT suggestive of bladder CA -scheduled for out pt procedure on March 08 at [facility] Coumadin is discontinued indefinitely pt is asked to avoid Aspirin ACUTE BLOOD LOSS ANEMIA : due to above S/p 2 units of PRBC transfusion hb 8.6 today ( baseline hb ~10 ) pt complains of continued fatigue will order for 1 units of PRBC tx Lasix 20 mg IV afterwards repeat H&H in AM PULMONARY FIBROSIS, CHRONIC HYPERCAPNIC AND HYPOXIC RESPIRATORY FAILURE - pulmonary status at baseline - saturating well on home amount of O2 - continue prednisone, Revatio, and Tracleer - appreciate input form Pulmonology advanced interstitial lung disease for pre op pulmonary eval -pt can be under general anesthesia /poor candidate for endotracheal intubation and ventilation should under go epidural anesthesia was on Coumadin for prophylaxis against PE -D/enrique for bleeding complication -pt will not be an candidate to resume Coumadin DM - hgb a1c 5.6 12/2016 - hold oral agents and utilize SSI while hospitalized HTN - BP controlled, continue Lisinopril DYSLIPIDEMIA - continue statin DVT PROPHYLAXIS - SCDs due to hematuria FULL CODE DISPOSITION lives at home with daughter complains of generalized weakness /fatigue -possible due to anemia Pt/OT eval requested -appreciate input independent in her ADL's stable to return home with Daughter Daughter updated over phone Vital Signs: Date Time Temp Pulse Resp B/P (MAP) Pulse Ox O2 Delivery O2 Flow Rate FiO2 03/01/17 08:00 100 Nasal Cannula 5.0 03/01/17 07:30 82 18 96 Nasal Cannula 5.0 03/01/17 07:05 36.8 90 20 161/70 (100) 100 Nasal Cannula 5.0 03/01/17 03:59 36.8 86 20 147/69 (95) 97 Nasal Cannula 5.0 03/01/17 02:36 83 18 98 Nasal Cannula 5.0 03/01/17 00:28 37.0 85 20 147/65 (92) 97 Nasal Cannula 5.0 03/01/17 00:00 Nasal Cannula 5.0 02/28/17 19:40 37.2 80 20 133/66 (88) 100 Nasal Cannula 6.0 02/28/17 19:19 90 18 96 Nasal Cannula 5.0 02/28/17 16:00 Nasal Cannula 5.0 02/28/17 15:07 37.5 77 20 119/68 (85) 98 Nasal Cannula 5.0 02/28/17 14:18 87 18 94 Nasal Cannula 5.0 Lab Results: Results Past 24 Hours Test 02/28/17 11:41 02/28/17 16:06 02/28/17 20:13 03/01/17 07:34 Range/Units Bedside Glucose 223 103 106 155 70-90 mg/dl Test 03/01/17 07:46 Range/Units White Blood Count 6.32 4.8-10.8 K/uL Red Blood Count 3.09 4.2-5.4 M/uL Hemoglobin 8.6 12.0-16.0 g/dL Hematocrit 28.3 37-47 % Mean Corpuscular Volume 91.6 80-100 fL Mean Corpuscular Hemoglobin 27.8 25-34 pg Mean Corpuscular Hemoglobin Concent 30.4 32-36 g/dl RDW Standard Deviation 47.8 36.4-46.3 fL RDW Coefficient of Variation 14.4 11.5-14.5 % Platelet Count 186 130-400 K/uL Mean Platelet Volume 8.8 7.4-10.4 fL Prothrombin Time 11.6 9.0-12.0 SECONDS Prothromb Time International Ratio 1.1 0.9-1.1
[2017-03-01] MEDS ORDERED: FUROSEMIDE INJ 20 MG in SYRINGE 0 ML IV SCH (12:00)
--- NOTE | 2017-03-01 17:07 | Pulmonology Progress Note ---
Pulmonary Progress Note Date of Service Mar 01, 2017. Attending Dr. Verdugo Subjective Denies any increased cough, dyspnea or wheeze. Denies any chest pain, fevers or chills. Objective 67-yo female admitted through [facility] 02/27/17 with hematuria, PMHx includes idiopathic interstitial pulmonary fibrosis (4L ambulator, 5L rest , 8L with ambulation/exertion), chronic prednisone, pulmonary HTN (sildenafil & tracleer & warfarin all S), Cor Pulmonale, Grade I diastolic HF, former tobacco use (30-40 pack year, quit 04/2000), h/o colon CA, h/o pulmonary pseudomonas and aspergilloses infection, MOODY, DM II, GERD, obesity. Patient INR was noted to be supra-therapeutic and reversed with vitamin K. She was transfused 2units of packed red blood cells. CT notable for 2.1cm mass in th right posterolateral aspect of the bladder with right adnexal lesion. She was evaluated by Urology and scheduled for diagnostics March 08. From a pulmonary standpoint, clinically she is at her baseline without increased on cough, dyspnea or wheeze. NO progression of hypoxia. Of note ABG 02/28/17 is consistent with partially compensated respiratory acidosis: 7.28/93/174-8L/44 Today: - SaO2: 93-100% 5LPM - Afebrile, HD stable - Hgb/Hct: 8.6/28.3 - INR 1.1 Physical Exam: Constitutional: Well developed well nourished female, NAD Head; + facial symmetry. + nasal cannula in place. Mouth: Moist mucous membranes, no erythema or plaques Neck: Trachea midline no masses Respiratory: non-labored respirations. Diffuse fine velcro rales throughout rt > left. No wheeze or rhonchi CV: RRR, soft systolic murmur appreciated. Extremities are warm and perfused MSK/Extremities: Moving and developed symmetrically. Walker for ambulation Neurologic: A&O, good data recall. Appropriate affect. Assessment & Plan 67-yo female with h/o pulmonary hypertension, idiopathic pulmonary fibrosis, cor pulmonale and diastolic dysfunction admitted with hematuria. Clinically she is at her baseline - as suggested previously, will recommend spinal anesthesia. Her ABG was initially notable for partially compensated acidosis. Obtain ABG in the AM now that her INR is normalizing. Patient and plan reviewed and agreed with. Data Medications: Current Inpatient Medications Medications (Trade) Dose Ordered Sig/Aurelia Route Start Time Stop Time Status Last Admin Dose Admin Acetaminophen (Tylenol Tab) 650 mg Q4H PRN PO 02/27/17 12:15 03/29/17 12:14 02/28/17 23:41 650 MG Ondansetron HCl (Zofran Inj) 4 mg Q6H PRN IV 02/27/17 12:15 03/29/17 12:14 Ioversol (Optiray 320) 100 ml UD PRN IV 02/27/17 12:30 03/03/17 12:29 Insulin Aspart (novoLOG ASPART) SLIDING SCALE If C... ACHS SC 02/27/17 16:30 03/29/17 16:29 03/01/17 12:30 3 UNITS Glucose (Glucose 40% Gel) 15-30 GRAMS 15 GRAMS... UD PRN PO 02/27/17 13:00 03/29/17 12:59 Glucose (Glucose Chew Tab) 4-8 Tablets 4 Tabl... UD PRN PO 02/27/17 13:00 03/29/17 12:59 Dextrose (Dextrose 50% 50ML Syringe) 25-50ML OF 50% DW IV FOR... UD PRN IV 02/27/17 13:00 03/29/17 12:59 Glucagon (Glucagon Inj) 1 mg UD PRN SQ 02/27/17 13:00 03/29/17 12:59 Arformoterol Tartrate (Brovana 15MCG/ 2ML Neb Soln) 15 mcg BIDR INH 02/27/17 20:00 03/29/17 19:59 02/27/17 19:35 15 MCG Ranitidine HCl (zANTac TAB) 150 mg BID PO 02/27/17 21:00 03/29/17 20:59 03/01/17 08:06 150 MG Acetylcysteine (Mucomyst 20% Inh Soln) 1 ml QIDR INH 02/27/17 17:00 03/29/17 16:59 03/01/17 14:47 1 ML Prednisone (PredniSONE TAB) 10 mg DAILY PO 02/28/17 09:00 03/30/17 08:59 03/01/17 08:06 10 MG Ipratropium [place] (Atrovent 0.02% 0.5MG/2.5ML Neb) 0.5 mg Q6R INH 02/27/17 21:00 03/29/17 20:59 03/01/17 14:43 0.5 MG Levalbuterol (Xopenex 0.63 Mg/ 3 Ml Neb) 0.63 mg Q6R INH 02/27/17 21:00 03/29/17 20:59 03/01/17 14:43 0.63 MG Polyethylene (Miralax Powder Packet) 17 gm DAILY PRN PO 02/28/17 12:15 03/30/17 12:14 02/28/17 12:54 17 GM Sildenafil Citrate (Revatio Tab) 60 mg TID PO 02/28/17 14:00 03/29/17 20:59 03/01/17 14:06 60 MG Bupropion HCl (Wellbutrin-Sr Tab) 150 mg BID PO 02/28/17 21:00 03/30/17 20:59 03/01/17 08:05 150 MG Ferrous Sulfate (Feosol Tab) 325 mg DAILY PO 03/01/17 09:00 03/31/17 08:59 03/01/17 08:05 325 MG Atorvastatin Calcium (Lipitor Tab) 10 mg DAILY PO 03/01/17 09:00 03/31/17 08:59 03/01/17 08:05 10 MG Calcium/Vitamin D (Caltrate Plus Tab) 1 tab DAILY PO 03/01/17 09:00 03/31/17 08:59 03/01/17 08:05 1 TAB Cholecalciferol (Vitamin D Tab) 1,000 inter.unit DAILY PO 03/01/17 09:00 03/31/17 08:59 03/01/17 08:05 1,000 INTER.UNIT Lisinopril (Zestril Tab) 10 mg DAILY PO 03/01/17 09:00 03/31/17 08:59 03/01/17 08:06 10 MG Multivitamins (Multivitamin Tab) 1 tab DAILY PO 03/01/17 09:00 03/31/17 08:59 03/01/17 08:05 1 TAB Paroxetine HCl (pAXil TAB) 40 mg QPM PO 02/28/17 21:00 03/30/17 20:59 02/28/17 21:08 40 MG Potassium Chloride (Klor-Con Tab) 20 meq DAILY PRN PO 02/28/17 13:15 03/30/17 13:14 Non-Formulary Medication (Non-Formulary Patient'S Own Med) 1 ea BID PO 02/28/17 21:00 03/30/17 20:59 03/01/17 08:07 1 EA Furosemide 20 mg/ Syringe 2 ml @ 4 mls/min TODAY@1200 IV 03/01/17 12:00 03/01/17 18:00 03/01/17 14:05 4 MLS/MIN I & O: 24-Hour Column 03/02/17 08:00 Intake Total 1020 ml Output Total 950 ml Balance 70 ml Vital Signs: Date Time Temp Pulse Resp B/P (MAP) Pulse Ox O2 Delivery O2 Flow Rate FiO2 03/01/17 15:27 36.9 85 19 123/65 (84) 94 Room Air 5.0 03/01/17 14:44 80 18 93 Nasal Cannula 5.0 03/01/17 13:11 37.0 85 18 135/68 100 5.0 03/01/17 12:05 37.2 91 18 134/71 100 5.0 03/01/17 11:35 37.1 81 18 127/66 99 5.0 03/01/17 11:20 37.1 81 18 123/68 100 5.0 03/01/17 11:05 36.8 90 18 131/69 03/01/17 08:00 100 Nasal Cannula 5.0 03/01/17 07:30 82 18 96 Nasal Cannula 5.0 03/01/17 07:05 36.8 90 20 161/70 (100) 100 Nasal Cannula 5.0 03/01/17 03:59 36.8 86 20 147/69 (95) 97 Nasal Cannula 5.0 03/01/17 02:36 83 18 98 Nasal Cannula 5.0 03/01/17 00:28 37.0 85 20 147/65 (92) 97 Nasal Cannula 5.0 03/01/17 00:00 Nasal Cannula 5.0 02/28/17 19:40 37.2 80 20 133/66 (88) 100 Nasal Cannula 6.0 02/28/17 19:19 90 18 96 Nasal Cannula 5.0 Laboratory Results: Last 24 Hours Test 7/25/17 20:13 03/01/17 07:34 03/01/17 07:46 03/01/17 11:28 Bedside Glucose 106 mg/dl 155 mg/dl 142 mg/dl White Blood Count 6.32 K/uL Red Blood Count 3.09 M/uL Hemoglobin 8.6 g/dL Hematocrit 28.3 % Mean Corpuscular Volume 91.6 fL Mean Corpuscular Hemoglobin 27.8 pg Mean Corpuscular Hemoglobin Concent 30.4 g/dl RDW Standard Deviation 47.8 fL RDW Coefficient of Variation 14.4 % Platelet Count 186 K/uL Mean Platelet Volume 8.8 fL Prothrombin Time 11.6 SECONDS Prothromb Time International Ratio 1.1 Test 03/01/17 16:46 Bedside Glucose 174 mg/dl
[2017-03-01] MEDS: POLYETHYLENE (MIRALAX) 17 GM PACK PO PRN (17:22)
[2017-03-01] MEDS: PAROXETINE 20 MG TAB PO SCH (20:59)
[2017-03-01] MEDS: ACETAMINOPHEN 325 MG TAB PO PRN (23:25)
[2017-03-02] VITALS (8 sets, daily range): BP systolic 111–133; BP diastolic 53–74; PULSE 58–85; TEMP 36.5–37; O2SAT 96–100
[2017-03-02 07:04] LABS: HEMATOCRIT 34.6 % (37-47)
[2017-03-02 07:13] LABS: PROTHROMBIN TIME (PATIENT) 10.5 SECONDS (9.0-12.0)
[2017-03-02] MEDS: LISINOPRIL 10 MG TAB PO SCH (07:38)
[2017-03-02] MEDS: CALCIUM 600MG + VIT D 400 IU TAB PO SCH (07:38)
[2017-03-02] MEDS: CHOLECALCIFEROL 1000 INTER.UNIT TAB PO SCH (07:38)
[2017-03-02] MEDS: FERROUS SULFATE 325 MG TAB PO SCH (07:39)
[2017-03-02] MEDS: ATORVASTATIN 10 MG TAB PO SCH (07:39)
[2017-03-02] MEDS: RANITIDINE HCL 150 MG TAB PO SCH ×2 (07:39→21:01)
[2017-03-02] MEDS: BuPROPion SR 150 MG TABCR PO SCH ×2 (07:40→21:01)
[2017-03-02] MEDS: SILDENAFIL CITRATE 20 MG TAB PO SCH ×3 (07:40→21:01)
[2017-03-02] MEDS: MULTIVITAMIN TAB PO SCH (07:41)
[2017-03-02] MEDS: TRACLEER PO SCH ×2 (07:43→20:41)
[2017-03-02] MEDS: ACETYLCYSTEINE 20% INHAL SOLN ***DISPENSED BY RESP. INH SCH ×4 (07:48→20:00)
[2017-03-02] MEDS: IPRATROPIUM BROMIDE NEB SOLN 0.02% 2.5 ML VIAL INH SCH ×2 (07:48→14:22)
[2017-03-02] MEDS: ARFORMOTEROL TART 15MCG/2ML VIAL INH SCH ×2 (07:48→20:00)
[2017-03-02] MEDS: LEVALBUTEROL 0.63MG/3 ML NEB INH SCH ×2 (07:49→14:23)
[2017-03-02] MEDS: INSULIN ASPART 100 UNITS/ML 3 ML PEN SC SCH ×4 (08:36→20:55)
[2017-03-02 09:25] LABS: ARTERIAL BLD GAS O2 SATURATION 95.1 % (90-95); ARTERIAL BLOOD GAS BASE EXCESS 12.3 mEq/L (-9-1.8); ARTERIAL BLOOD GAS HCO3 41 mmol/L (19-24); ARTERIAL BLOOD GAS PO2 88 mm/Hg (80-95); ARTERIAL BLOOD GAS pH 7.32 (7.35-7.45)
[2017-03-02 09:26] LABS: ALLEN TEST POS (POS)
[2017-03-02 09:28] LABS: O2 ADMINISTRATION 5L
--- NOTE | 2017-03-02 15:03 | Progress Note ---
Internal Med Progress Note Date of Service: Mar 02, 2017. Provider Documentation: SUBJECTIVE: continues to have gross hematuria with large amount clots in urine denies of any dizzy spell or lightheadedness still feels tired and weak OBJECTIVE: Vital Signs-as noted below Exam: General-no sign of distress Eyes-sclera non icteric ENT-NAD Neck-no JVD Lungs-coarse crackles with each breath ,chronic finding in interstitial lung disease Heart-regular S1/S2 Abdomen-soft, non tender Extremities-no lower ext edema Neuro-AAO x3 no focal deficit Lab data as noted below. ASSESSMENT & PLAN: HEMATURIA, LIKELY DUE TO BLADDER TUMOR WHILE ON COUMADIN AND ELEVATED INR - improved after correction of coagulopathy with PO vit K INR 1.1 - patient presented with one week of hematuria with clots; reports she has a long standing history of intermittent mild hematuria when her INR is too high; denies prior work up - in the ER, hgb 8.0 (baseline ~ 10), INR 4.9 - given Vit K 5mg PO S/P transfusion total 3 units PRBC; Coumadin D/enrique - CT showing 2.1 cm mass within the right posterolateral aspect of the bladder which is highly suggestive of transitional cell carcinoma and also right adnexal lesion (US has been ordered for follow up of adnexal lesion) - urology consulted , appreciate input -will need Cystoscopy and possible TURBT suggestive of bladder CA -scheduled for out pt procedure on March 08 at [facility] Coumadin is discontinued indefinitely pt is asked to avoid Aspirin ACUTE BLOOD LOSS ANEMIA : due to above S/p 3 units of PRBC transfusion Hb improve to 10 has ongoing gross hematuria repeat H&H in AM PULMONARY FIBROSIS, CHRONIC HYPERCAPNIC AND HYPOXIC RESPIRATORY FAILURE - pulmonary status at baseline - saturating well on home amount of O2 - continue prednisone, Revatio, and Tracleer - appreciate input form Pulmonology advanced interstitial lung disease for pre op pulmonary eval -pt can be under general anesthesia /poor candidate for endotracheal intubation and ventilation should under go epidural anesthesia was on Coumadin for prophylaxis against PE -D/enrique for bleeding complication -pt will not be an candidate to resume Coumadin DM - hgb a1c 5.6 12/2016 - hold oral agents and utilize SSI while hospitalized HTN - BP controlled, continue Lisinopril DYSLIPIDEMIA - continue statin DVT PROPHYLAXIS - SCDs due to hematuria FULL CODE DISPOSITION lives at home with daughter complains of generalized weakness /fatigue -possible due to anemia Pt/OT eval requested -appreciate input independent in her ADL's stable to return home with Daughter referral made for [facility] pt will need lab draw at home -CBC to assess for acute blood loss anemia discharge home when h&h remains stable Vital Signs: Date Time Temp Pulse Resp B/P (MAP) Pulse Ox O2 Delivery O2 Flow Rate FiO2 03/02/17 14:28 76 18 99 Nasal Cannula 5.0 03/02/17 11:29 37.0 85 20 132/63 (86) 100 Nasal Cannula 5.0 03/02/17 08:00 Nasal Cannula 5.0 03/02/17 07:49 77 18 98 Nasal Cannula 5.0 03/02/17 07:31 36.6 58 18 133/73 (93) 96 Nasal Cannula 5.0 03/02/17 03:07 36.5 78 18 121/74 (90) 100 5.0 03/02/17 00:00 Nasal Cannula 5.0 03/01/17 23:58 37.0 78 20 122/69 (86) 96 5.0 03/01/17 20:07 37.2 79 18 130/72 (91) 97 Nasal Cannula 5.0 03/01/17 19:28 82 18 95 Nasal Cannula 5.0 03/01/17 16:00 Nasal Cannula 5.0 03/01/17 15:27 36.9 85 19 123/65 (84) 94 Room Air 5.0 Lab Results: Results Past 24 Hours Test 03/01/17 16:46 03/01/17 20:34 03/02/17 06:53 03/02/17 07:32 Range/Units Bedside Glucose 174 177 150 70-90 mg/dl Hemoglobin 10.2 12.0-16.0 g/dL Hematocrit 34.6 37-47 % Prothrombin Time 10.5 9.0-12.0 SECONDS Prothromb Time International Ratio 1.0 0.9-1.1 Test 03/02/17 09:16 03/02/17 11:31 Range/Units Arterial Blood pH 7.32 7.35-7.45 Arterial Blood Partial Pressure CO2 82 35-46 mmHg Arterial Blood Partial Pressure O2 88 80-95 mm/Hg Arterial Blood HCO3 41 19-24 mmol/L Arterial Blood Oxygen Saturation 95.1 90-95 % Arterial Blood Base Excess 12.3 -9-1.8 mEq/L Arterial Blood Gas Delivery 5L Adalberto Test POS POS Bedside Glucose 147 70-90 mg/dl
--- NOTE | 2017-03-02 15:24 | Discharge Instructions ---
Discharge Instructions Date of Service Mar 02, 2017. Admission Reason for Admission: Hematuria Discharge Discharge Diagnosis / Problem: GROSS HEMATURIA /BLADDER TUMOR /ANEMIA REQURING BLOOD TRANSFUION Discharge Goals Goal(s): Decrease discomfort, Improve disease control, Diagnostic testing, Therapeutic intervention Activity Recommendations Activity Limitations: resume your previous activity . Instructions / Follow-Up Instructions / Follow-Up HOSPITAL FOLLOW UP : 03/06/2017 1:00 PM Laney Verdugo DO [facility] LAB WORK : CBC CHECK ON Monday03/05/17 FOR ANEMIA UROLOGY PROCEDURE BY DR DEIDRE TORREZ SCHEDULED ON MONDAY Date: 03/08/2017 Time: 8:05 AM Location: [facility] Current Hospital Diet Patient's current hospital diet: Diabetes Type 2 Diet, AHA Diet (Heart Healthy) Discharge Diet Recommended Diet: AHA Diet (Heart Healthy), Diabetes Type 2 Diet Pending Studies Studies pending at discharge: yes List of pending studies: LAB WORK CBC ON 03/05/17 Medical Emergencies . Who to Call and When: Medical Emergencies: If at any time you feel your situation is an emergency, please call 911 immediately. . Non-Emergent Contact Non-Emergency issues call your: Primary Care Provider . . "Provider Documentation" section prepared by Lorri Méndez. . VTE Core Measure Inpt VTE Proph given/why not?: Janneth Macias, SCD's
--- NOTE | 2017-03-02 16:27 | Pulmonology Progress Note ---
Pulmonary Progress Note Date of Service Mar 02, 2017. Attending Dr. Verdugo Objective 67-yo female admitted through [facility] ER 02/27/17 with hematuria. PMHx includes idiopathic pulmonary fibrosis (4L ambulator, 5L rest, 8L with ambulation/exertion), chronic prednisone, pulmonary HTN (sildenafil & tracleer & warfarin all S), Cor Pulmonale, Grade I diastolic HF, former tobacco use (30- 40 pack year, quit 04/2000), h/o colon CA, h/o pulmonary pseudomonas and aspergilloses infection, MOODY, DM II, GERD, obesity. Patient followed in the office for IPF and pulmonary HTN. Her inpatient ABG is improved but continues to be significant for CO2 retention consistent with progression of her underlying disease. Assessment & Plan - Patient should be seen in the office in 1 week post discharge for further consideration and initiation of trilogy/NIV device for CO2 retention in IPF Patient's case has been reviewed panel and agreed with Data Medications: Current Inpatient Medications Medications (Trade) Dose Ordered Sig/Aurelia Route Start Time Stop Time Status Last Admin Dose Admin Acetaminophen (Tylenol Tab) 650 mg Q4H PRN PO 02/27/17 12:15 03/29/17 12:14 03/01/17 23:25 650 MG Ondansetron HCl (Zofran Inj) 4 mg Q6H PRN IV 02/27/17 12:15 03/29/17 12:14 Ioversol (Optiray 320) 100 ml UD PRN IV 02/27/17 12:30 03/03/17 12:29 Insulin Aspart (novoLOG ASPART) SLIDING SCALE If C... ACHS SC 02/27/17 16:30 03/29/17 16:29 03/02/17 12:21 2 UNITS Glucose (Glucose 40% Gel) 15-30 GRAMS 15 GRAMS... UD PRN PO 02/27/17 13:00 03/29/17 12:59 Glucose (Glucose Chew Tab) 4-8 Tablets 4 Tabl... UD PRN PO 02/27/17 13:00 03/29/17 12:59 Dextrose (Dextrose 50% 50ML Syringe) 25-50ML OF 50% DW IV FOR... UD PRN IV 02/27/17 13:00 03/29/17 12:59 Glucagon (Glucagon Inj) 1 mg UD PRN SQ 02/27/17 13:00 03/29/17 12:59 Arformoterol Tartrate (Brovana 15MCG/ 2ML Neb Soln) 15 mcg BIDR INH 02/27/17 20:00 03/29/17 19:59 02/27/17 19:35 15 MCG Ranitidine HCl (zANTac TAB) 150 mg BID PO 02/27/17 21:00 03/29/17 20:59 03/02/17 07:39 150 MG Acetylcysteine (Mucomyst 20% Inh Soln) 1 ml QIDR INH 02/27/17 17:00 03/29/17 16:59 03/02/17 07:48 1 ML Prednisone (PredniSONE TAB) 10 mg DAILY PO 02/28/17 09:00 03/30/17 08:59 03/02/17 07:41 10 MG Polyethylene (Miralax Powder Packet) 17 gm DAILY PRN PO 02/28/17 12:15 03/30/17 12:14 03/01/17 17:22 17 GM Sildenafil Citrate (Revatio Tab) 60 mg TID PO 02/28/17 14:00 03/29/17 20:59 03/02/17 07:40 60 MG Bupropion HCl (Wellbutrin-Sr Tab) 150 mg BID PO 02/28/17 21:00 03/30/17 20:59 03/02/17 07:40 150 MG Ferrous Sulfate (Feosol Tab) 325 mg DAILY PO 03/01/17 09:00 03/31/17 08:59 03/02/17 07:39 325 MG Atorvastatin Calcium (Lipitor Tab) 10 mg DAILY PO 03/01/17 09:00 03/31/17 08:59 03/02/17 07:39 10 MG Calcium/Vitamin D (Caltrate Plus Tab) 1 tab DAILY PO 03/01/17 09:00 03/31/17 08:59 03/02/17 07:38 1 TAB Cholecalciferol (Vitamin D Tab) 1,000 inter.unit DAILY PO 03/01/17 09:00 03/31/17 08:59 03/02/17 07:38 1,000 INTER.UNIT Lisinopril (Zestril Tab) 10 mg DAILY PO 03/01/17 09:00 03/31/17 08:59 03/02/17 07:38 10 MG Multivitamins (Multivitamin Tab) 1 tab DAILY PO 03/01/17 09:00 03/31/17 08:59 03/02/17 07:41 1 TAB Paroxetine HCl (pAXil TAB) 40 mg QPM PO 02/28/17 21:00 03/30/17 20:59 03/01/17 20:59 40 MG Potassium Chloride (Klor-Con Tab) 20 meq DAILY PRN PO 02/28/17 13:15 03/30/17 13:14 Non-Formulary Medication (Non-Formulary Patient'S Own Med) 1 ea BID PO 02/28/17 21:00 03/30/17 20:59 03/02/17 07:43 1 EA Diphenhydramine HCl (Benadryl Cap) 25 mg Q6H PRN PO 03/02/17 01:00 04/01/17 00:59 03/02/17 01:16 25 MG Ipratropium [place] (Atrovent 0.02% 0.5MG/2.5ML Neb) 0.5 mg Q6R PRN INH 03/02/17 21:00 03/29/17 20:59 Levalbuterol (Xopenex 0.63 Mg/ 3 Ml Neb) 0.63 mg Q6R PRN INH 03/02/17 21:00 03/29/17 20:59 I & O: 24-Hour Column 03/03/17 07:59 Intake Total 1115 ml Output Total 850 ml Balance 265 ml Vital Signs: Date Time Temp Pulse Resp B/P (MAP) Pulse Ox O2 Delivery O2 Flow Rate FiO2 03/02/17 15:58 36.6 76 18 126/67 (86) 100 Nasal Cannula 5.0 03/02/17 14:28 76 18 99 Nasal Cannula 5.0 03/02/17 11:29 37.0 85 20 132/63 (86) 100 Nasal Cannula 5.0 03/02/17 08:00 Nasal Cannula 5.0 03/02/17 07:49 77 18 98 Nasal Cannula 5.0 03/02/17 07:31 36.6 58 18 133/73 (93) 96 Nasal Cannula 5.0 03/02/17 03:07 36.5 78 18 121/74 (90) 100 5.0 03/02/17 00:00 Nasal Cannula 5.0 03/01/17 23:58 37.0 78 20 122/69 (86) 96 5.0 03/01/17 20:07 37.2 79 18 130/72 (91) 97 Nasal Cannula 5.0 03/01/17 19:28 82 18 95 Nasal Cannula 5.0 Laboratory Results: Last 24 Hours Test 03/01/17 16:46 03/01/17 20:34 03/02/17 06:53 03/02/17 07:32 Bedside Glucose 174 mg/dl 177 mg/dl 150 mg/dl Hemoglobin 10.2 g/dL Hematocrit 34.6 % Prothrombin Time 10.5 SECONDS Prothromb Time International Ratio 1.0 Test 03/02/17 09:16 03/02/17 11:31 Arterial Blood pH 7.32 Arterial Blood Partial Pressure CO2 82 mmHg Arterial Blood Partial Pressure O2 88 mm/Hg Arterial Blood HCO3 41 mmol/L Arterial Blood Oxygen Saturation 95.1 % Arterial Blood Base Excess 12.3 mEq/L Arterial Blood Gas Delivery 5L Adalberto Test POS Bedside Glucose 147 mg/dl
[2017-03-02] MEDS ORDERED: LEVALBUTEROL 0.63MG/3 ML NEB INH PRN (21:00)
[2017-03-02] MEDS ORDERED: IPRATROPIUM BROMIDE NEB SOLN 0.02% 2.5 ML VIAL INH PRN (21:00)
[2017-03-02] MEDS: PAROXETINE 20 MG TAB PO SCH (21:01)
[2017-03-03 00:12] VITALS: BP 112/64; PULSE 82; TEMP 36.8; O2SAT 96
[2017-03-03 04:00] VITALS: BP 132/72; PULSE 78; TEMP 36.7; O2SAT 99
[2017-03-03 07:21] VITALS: BP 125/74; PULSE 85; TEMP 36.6; O2SAT 97
[2017-03-03] MEDS: SILDENAFIL CITRATE 20 MG TAB PO SCH (07:31)
[2017-03-03] MEDS: MULTIVITAMIN TAB PO SCH (07:31)
[2017-03-03] MEDS: FERROUS SULFATE 325 MG TAB PO SCH (07:31)
[2017-03-03] MEDS: CHOLECALCIFEROL 1000 INTER.UNIT TAB PO SCH (07:31)
[2017-03-03] MEDS: BuPROPion SR 150 MG TABCR PO SCH (07:31)
[2017-03-03] MEDS: RANITIDINE HCL 150 MG TAB PO SCH (07:31)
[2017-03-03] MEDS: CALCIUM 600MG + VIT D 400 IU TAB PO SCH (07:31)
[2017-03-03] MEDS: LISINOPRIL 10 MG TAB PO SCH (07:31)
[2017-03-03] MEDS: ATORVASTATIN 10 MG TAB PO SCH (07:32)
[2017-03-03] MEDS: TRACLEER PO SCH (07:32)
[2017-03-03] MEDS: ACETAMINOPHEN 325 MG TAB PO PRN (07:36)
[2017-03-03] MEDS: ARFORMOTEROL TART 15MCG/2ML VIAL INH SCH (07:51)
[2017-03-03] MEDS: ACETYLCYSTEINE 20% INHAL SOLN ***DISPENSED BY RESP. INH SCH (07:51)
[2017-03-03] MEDS: INSULIN ASPART 100 UNITS/ML 3 ML PEN SC SCH ×2 (08:34→13:50)
[2017-03-03] MEDS ORDERED: DOCU-94 PO (10:34)
[2017-03-03] MEDS ORDERED: FRRS300 PO (10:34)
[2017-03-03] MEDS ORDERED: MRLP17X PO (10:34)
--- NOTE | 2017-03-03 10:39 | Progress Note ---
Internal Med Progress Note Date of Service: Mar 03, 2017. Provider Documentation: SUBJECTIVE: still having gross hematuria with blood clot in it denies of any Dizzy spell no complain of SOB or GARZA OBJECTIVE: Vital Signs-as noted below Exam: General-no sign of distress Eyes-sclera non icteric ENT-NAD Neck-no JVD Lungs-coarse crackles with each breath ,chronic finding in interstitial lung disease Heart-regular S1/S2 Abdomen-soft, non tender Extremities-no lower ext edema Neuro-AAO x3 no focal deficit Lab data as noted below. ASSESSMENT & PLAN: HEMATURIA, LIKELY DUE TO BLADDER TUMOR WHILE ON COUMADIN AND ELEVATED INR - improved after correction of coagulopathy with PO vit K INR 1.1 -> 1 - patient presented with one week of hematuria with clots; reports she has a long standing history of intermittent mild hematuria when her INR is too high; denies prior work up - in the ER, hgb 8.0 (baseline ~ 10), INR 4.9 - given Vit K 5mg PO S/P transfusion total 3 units PRBC; Coumadin D/enrique - CT showing 2.1 cm mass within the right posterolateral aspect of the bladder which is highly suggestive of transitional cell carcinoma and also right adnexal lesion (US has been ordered for follow up of adnexal lesion) - urology consulted , appreciate input -will need Cystoscopy and possible TURBT suggestive of bladder CA -scheduled for out pt procedure on March 08 at [facility] by Dr Gabriela Mckeon Coumadin is discontinued indefinitely /pt is asked to avoid Aspirin pt continues to have gross hematuria and passage of clots in urine counselled -the symptom may persists as long as bladder tumor is not resected monitor H&H possible discharge home in next 24-48 hrs ACUTE BLOOD LOSS ANEMIA : due to above S/p 3 units of PRBC transfusion Hb 10 -> 9.7 , no significant drop has ongoing gross hematuria repeat H&H in AM PULMONARY FIBROSIS, CHRONIC HYPERCAPNIC AND HYPOXIC RESPIRATORY FAILURE - pulmonary status at baseline - saturating well on home amount of O2 - continue prednisone, Revatio, and Tracleer - appreciate input form Pulmonology advanced interstitial lung disease for pre op pulmonary eval -pt can be under general anesthesia /poor candidate for endotracheal intubation and ventilation should under go epidural anesthesia was on Coumadin for prophylaxis against PE -D/enrique for bleeding complication -pt will not be an candidate to resume Coumadin DM - hgb a1c 5.6 12/2016 - hold oral agents and utilize SSI while hospitalized Metformin will be resumed on discharge HTN - BP controlled, continue Lisinopril renal function remains stable DYSLIPIDEMIA - continue statin DVT PROPHYLAXIS - SCDs due to hematuria FULL CODE DISPOSITION lives at home with daughter complains of generalized weakness /fatigue -possible due to anemia Pt/OT eval requested -appreciate input independent in her ADL's stable to return home with Daughter referral made for [facility] home care pt will need lab draw at home -CBC to assess for acute blood loss anemia discharge home when h&h remains stable Vital Signs: Date Time Temp Pulse Resp B/P (MAP) Pulse Ox O2 Delivery O2 Flow Rate FiO2 03/03/17 08:00 Nasal Cannula 5.0 03/03/17 07:21 36.6 85 20 125/74 (91) 97 Nasal Cannula 5.0 03/03/17 04:00 36.7 78 20 132/72 (92) 99 5.0 03/03/17 00:12 36.8 82 20 112/64 (80) 96 Nasal Cannula 5.0 03/03/17 00:00 Nasal Cannula 5.0 03/02/17 20:44 75 18 98 Nasal Cannula 5.0 03/02/17 20:00 Nasal Cannula 5.0 03/02/17 19:51 36.9 77 18 111/53 (72) 98 Nasal Cannula 5.0 03/02/17 16:00 Nasal Cannula 5.0 03/02/17 15:58 36.6 76 18 126/67 (86) 100 Nasal Cannula 5.0 03/02/17 14:28 76 18 99 Nasal Cannula 5.0 03/02/17 11:29 37.0 85 20 132/63 (86) 100 Nasal Cannula 5.0 Lab Results: Results Past 24 Hours Test 03/02/17 11:31 03/02/17 16:26 03/02/17 20:24 03/03/17 06:24 Range/Units Bedside Glucose 147 116 130 70-90 mg/dl Hemoglobin 9.7 12.0-16.0 g/dL Hematocrit 32.0 37-47 % Test 03/03/17 07:32 Range/Units Bedside Glucose 110 70-90 mg/dl
[2017-03-03 11:24] VITALS: BP 119/68; PULSE 89; TEMP 36.6; O2SAT 99
[2017-03-03] MEDS ORDERED: ATV/1 PO (13:01)
--- NOTE | 2017-03-03 13:02 | Discharge Summary ---
Discharge Summary Date of Service Mar 03, 2017. Discharge Summary Admission Date: Feb 27, 2017 at 12:00 Discharge Date: Mar 03, 2017 Discharge Disposition: Home with services Principal Diagnosis: GROSS HEMATURIA /BLADDER TUMOR /ANEMIA REQURING BLOOD TRANSFUION Procedures: CT ABDOMEN /PELVIS : IMPRESSION: 1. 2.1 cm mass within the right posterolateral aspect of the bladder which is highly suggestive of transitional cell carcinoma. No hydronephrosis. Urologic consultation is recommended. 2. 4 cm water attenuation right adnexal lesion likely arising from the right ovary. This may reflect a cyst but is abnormal is a postmenopausal patient and a nonemergent pelvic ultrasound is recommended. 3. 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 Multifocal groundglass opacities with subpleural reticulation which have been shown on prior exams and suggests interstitial lung disease. PELVIC USG: IMPRESSION: 1. There is a 2.2 cm lesion in the right posterior aspect of the bladder with internal flow on color imaging. This should be considered transitional cell carcinoma until proven otherwise. 2. There is a 5.2 cm simple appearing cystic lesion identified in the right ovary. This is pathologically indeterminant but of low suspicion. A precautionary 3 month follow-up ultrasound of the pelvis is recommended for reassessment. 3. The left ovary was not visualized. 4. The uterus was normal in appearance. Consultations: UROLOGY PULMONOLOGY ANESTHESIA Medication Reconciliation New Medications: Docusate Sodium (Colace) 100 Mg Cap 1 CAP PO DAILY for 30 Days, #30 CAP over the counter take it daily to prevent consipation with iron supplement Lorazepam (Ativan) 1 Mg Tab 0.5 MG PO DAILY for Anxiety, #30 TAB Ferrous Sulfate (Ferrous Sulfate) 325 Mg Tab 325 MG PO BID for 30 Days, #60 TAB 2 Refills Polyethylene (Miralax) 17 Gm Pow 17 GM PO DAILY PRN for Constipation for 30 Days over the counter Continued Medications: Acetylcysteine (Acetylcysteine) 10 % Lisa INH PRN for Shortness of Breath Albuterol Sulf (Proventil 0.083% 2.5MG/3ML) 2.5 Mg/3 Ml Nebu 2.5 MG INH Q6H PRN for Shortness of Breath, EA Atorvastatin (Atorvastatin Calcium) 10 Mg Tab 10 MG PO DAILY, #90 Bosentan (Tracleer) 125 Mg Tab 125 MG PO BID, 0 Refills Bupropion (Wellbutrin Sr) 150 Mg Ertab 150 MG PO BID, TAB Calcium/Vitamin D (Os-Gil 500 Plus D) Tab 1 TAB PO DAILY, TAB Cholecalciferol (Vitamin D3) 1,000 Unit Tab 1 TAB PO DAILY for 30 Days, #30 TAB 5 Refills Furosemide (Furosemide) 20 Mg Tab 2 TAB PO DAILY PRN for edema Furosemide (Lasix) 20 Mg Tab 40 MG PO DAILY PRN for edema Lisinopril (Lisinopril) 10 Mg Tab 10 MG PO DAILY Metformin Hcl (Glucophage) 500 Mg Tab 500 MG PO DAILY, TAB Multivitamin (Multivitamin) Tab 1 TAB PO DAILY Paroxetine (Paxil) 40 Mg Tab 40 MG PO QPM Potassium Chloride (Micro-K Ext Rel) 10 Meq Capcr 20 MEQ PO DAILY PRN for with Lasix, CAP Prednisone Tab (Prednisone) 10 Mg Tab 10 MG PO DAILY, TAB Sildenafil Citrate (Revatio) 20 Mg Tab 3 TABS PO TID Discontinued Medications: Aspirin (Aspirin Ec) 81 Mg Tab 81 MG PO DAILY Ferrous Sulfate (Kp Ferrous Sulfate) 325 Mg Tab 1 TAB PO DAILY for 30 Days, #30 TAB 3 Refills Warfarin Sod (Jantoven) 3 Mg Tab 3 MG PO 3XWK, TAB MWF Warfarin Sod (Jantoven) 3 Mg Tab 4.5 MG PO 4XWK, TAB TuThSaSu Admission Information HPI (per Admitting provider): 67 year old female who presents to the ER with blood in her urine. Patient has been on Coumadin for the past several years and reports that when her INR gets too high she will notice a small amount of blood in her urine. She reports over the past week she has had a significant amount of blood in her urine with clots. She denies dysuria. She has chronic shortness of breath at baseline which she reports has been worsening over the past few weeks. She reports mild lightheadedness and dizziness. She denies any syncopal events. No chest pain. She reports her cough is at baseline. She denies abdominal pain, nausea, vomiting, diarrhea. BRBPR, or dark tarry stools. She denies fever and chills. In the ER, patient's hgb is 8.0 (baseline ~ 10.0). INR is 4.9. She is hemodynamically stable. She was type and crossed for 2 units PRBC. Physical Exam (per Admitting): General Appearance: no apparent distress Head: normocephalic Eyes: normal inspection ENT: hearing grossly normal Neck: supple, no JVD Respiratory/Chest: no respiratory distress, + wheezing (scattered, inspiratory and expiratory), + pertinent finding (coarse breath sounds BL) Cardiovascular: regular rate, rhythm, no edema, normal peripheral pulses Abdomen/GI: normal bowel sounds, non tender, soft Extremities/Musculoskelatal: normal inspection, no calf tenderness Neurologic/Psych: no motor/sensory deficits, alert, normal mood/affect, oriented x 3 Skin: normal color, warm/dry Hospital Course HEMATURIA, LIKELY DUE TO BLADDER TUMOR WHILE ON COUMADIN AND ELEVATED INR - improved after correction of coagulopathy with PO vit K INR 1.1 -> 1 - patient presented with one week of hematuria with clots; reports she has a long standing history of intermittent mild hematuria when her INR is too high; denies prior work up - in the ER, hgb 8.0 (baseline ~ 10), INR 4.9 - given Vit K 5mg PO S/P transfusion total 3 units PRBC; Coumadin D/enrique - CT showing 2.1 cm mass within the right posterolateral aspect of the bladder which is highly suggestive of transitional cell carcinoma and also right adnexal lesion (US has been ordered for follow up of adnexal lesion) - urology consulted , appreciate input -will need Cystoscopy and possible TURBT suggestive of bladder CA -scheduled for out pt procedure on March 08 at [facility] by Dr Deidre Torrez Coumadin is discontinued indefinitely /pt is asked to avoid Aspirin pt continues to have gross hematuria and passage of clots in urine counselled -the symptom may persists as long as bladder tumor is not resected monitor H&H possible discharge home in next 24-48 hrs ACUTE BLOOD LOSS ANEMIA : due to above S/p 3 units of PRBC transfusion Hb 10 -> 9.7 , no significant drop has ongoing gross hematuria repeat H&H in AM PULMONARY FIBROSIS, CHRONIC HYPERCAPNIC AND HYPOXIC RESPIRATORY FAILURE - pulmonary status at baseline - saturating well on home amount of O2 - continue prednisone, Revatio, and Tracleer - appreciate input form Pulmonology advanced interstitial lung disease for pre op pulmonary eval -pt can be under general anesthesia /poor candidate for endotracheal intubation and ventilation should under go epidural anesthesia was on Coumadin for prophylaxis against PE -D/enrique for bleeding complication -pt will not be an candidate to resume Coumadin DM - hgb a1c 5.6 12/2016 - hold oral agents and utilize SSI while hospitalized Metformin will be resumed on discharge HTN - BP controlled, continue Lisinopril renal function remains stable DYSLIPIDEMIA - continue statin DVT PROPHYLAXIS - SCDs due to hematuria FULL CODE DISPOSITION lives at home with daughter complains of generalized weakness /fatigue -possible due to anemia Pt/OT eval requested -appreciate input independent in her ADL's stable to return home with Daughter referral made for [facility] for [facility] home care pt will need lab draw at home -CBC to assess for acute blood loss anemia discharge home when h&h remains stable Total time spent on discharge = 35MINS This includes examination of the patient, discharge planning, medication reconciliation, and communication with other providers. Discharge Instructions Discharge Instructions Date of Service Mar 02, 2017. Admission Reason for Admission: Hematuria Discharge Discharge Diagnosis / Problem: GROSS HEMATURIA /BLADDER TUMOR /ANEMIA REQURING BLOOD TRANSFUION Discharge Goals Goal(s): Decrease discomfort, Improve disease control, Diagnostic testing, Therapeutic intervention Activity Recommendations Activity Limitations: resume your previous activity . Instructions / Follow-Up Instructions / Follow-Up HOSPITAL FOLLOW UP : 03/06/2017 1:00 PM Laney Verdugo DO [facility] LAB WORK : CBC CHECK ON Monday03/05/17 FOR ANEMIA UROLOGY PROCEDURE BY DR DEIDRE TORREZ SCHEDULED ON MONDAY Date: 03/08/2017 Time: 8:05 AM Location: [facility] Current Hospital Diet Patient's current hospital diet: Diabetes Type 2 Diet, AHA Diet (Heart Healthy) Discharge Diet Recommended Diet: AHA Diet (Heart Healthy), Diabetes Type 2 Diet Pending Studies Studies pending at discharge: yes List of pending studies: LAB WORK CBC ON 03/05/17 Medical Emergencies . Who to Call and When: Medical Emergencies: If at any time you feel your situation is an emergency, please call 911 immediately. . Non-Emergent Contact Non-Emergency issues call your: Primary Care Provider . . "Provider Documentation" section prepared by Lorri Méndez. . VTE Core Measure Inpt VTE Proph given/why not?: ANTONIO Sarmiento's Additional Copies To Deidre Torrez ., Laney Vega D.O.
[2017-03-03 13:12] VITALS: BP 119/68; PULSE 89; TEMP 36.6; O2SAT 99
[2017-03-08] MEDS ORDERED: PHEN-775 PO (12:18)
== END 2017-03-03 13:50 | disposition home health service (06) | DRG 687 ==
LOC: C.EDB 08:03 → C.MED 12:00 → ENRESERV 12:17 → C.4E 03-03 11:59
PROVIDERS: ADMIT Internal Medicine; ATTEND Hospitalist
DX: C67.9 Malignant neoplasm of bladder, unspecified (principal); J96.12 Chronic respiratory failure with hypercapnia; J96.11 Chronic respiratory failure with hypoxia; E87.2 Acidosis; D62 Acute posthemorrhagic anemia; I50.32 Chronic diastolic (congestive) heart failure; R31.0 Gross hematuria; I27.2 Other secondary pulmonary hypertension; J84.10 Pulmonary fibrosis, unspecified; R35.0 Frequency of micturition; G47.33 Obstructive sleep apnea (adult) (pediatric); E66.9 Obesity, unspecified; E11.9 Type 2 diabetes mellitus without complications; E78.5 Hyperlipidemia, unspecified; I11.0 Hypertensive heart disease with heart failure; K21.9 Gastro-esophageal reflux disease without esophagitis; Z87.891 Personal history of nicotine dependence; Z79.52 Long term (current) use of systemic steroids; Z79.82 Long term (current) use of aspirin; Z79.899 Other long term (current) drug therapy; Z79.84 Long term (current) use of oral hypoglycemic drugs; Z82.0 Family history of epilepsy and other diseases of the nervous system; Z80.8 Family history of malignant neoplasm of other organs or systems; Z82.49 Family history of ischemic heart disease and other diseases of the circulatory system; Z85.038 Personal history of other malignant neoplasm of large intestine

== ENCOUNTER → 2017-03-05 | Outpatient (CLI) | payer OTHER, MEDICARE ==
[~2017-03-05] MED LIST changes: +ACET-1047 PO; +ACET10SO3 INH; -ACT35 PO; +ALBINS/ INH; -ASPI81TA28 PO; +ATV/1 PO; +AZIT500T26 PO; -BRVIN NEB; +CEFU1TAB35 PO; +CHOL1000 PO; -CHOL100010 PO; -CMD3 PO; +DOCU-94 PO; +FURO20TA PO; -HYDR-3419 PO; +LISI-461 PO; +LRS10 PO; -LSN25 PO; +MRLP17X PO; -OMEG10002 PO; -PANT40TA PO; +PHEN-775 PO; -PLMINS INH; -PRED-301 PO; +PRED10TA PO; +PRED20TA2 PO; +SILD1TAB25 PO; -SILDINJ PO; +ULT50 PO; -XPNINS125 INH; +XPNINS1255 INH; -bipap
[2017-03-05 11:12] LABS: HEMATOCRIT 31.6 % (37-47); MEAN CELL VOLUME 93.2 fL (80-100); MEAN CORPUSCULAR HEMOGLOBIN 27.1 pg (25-34); MEAN CORPUSCULAR HGB CONC 29.1 g/dl (32-36); PLATELET COUNT 183 K/uL (130-400); RED BLOOD COUNT 3.39 M/uL (4.2-5.4); WHITE BLOOD COUNT 8.73 K/uL (4.8-10.8)
== END | disposition home or self-care (01) ==
LOC: C.LABSPEC 08:16
PROVIDERS: ATTEND Hospitalist
DX: D64.9 Anemia, unspecified (principal)

== ENCOUNTER → 2017-03-08 | Day surgery (SDC) | payer OTHER, MEDICARE ==
[2017-03-07 11:39] VITALS: BMI 38.0
[~2017-03-08] VITALS: Ht 157.5 cm; Wt 95.0 kg
[~2017-03-08] MED LIST changes: +ATROPINE SULFATE 0.1 MG/ML 5ML SYR IV PRN; -ATV/1 PO; +BELLADONNA/OPIUM SUPP 60 MG SUPP PR ONE; -CALC500C70 PO; +CEFAZOLIN IV 2,000 MG/60 ML D5W IV ONE; +DEXAMETHASONE SOD INJ 4 MG/ML VIAL ONE; -DOCU-94 PO; +EpHEDrine SULFATE INJ 50 MG/ML AMP IV PRN; +FENTANYL CITRATE INJ 50 MCG/1 ML 2 ML VIAL IV PRN; +FENTANYL CITRATE INJ 50 MCG/1 ML 2 ML VIAL ONE; -FRRS300 PO; -FURO20TA PO; +LACTATED RINGER'S 1000ML 1,000 ML IV SCH; +LIDOCAINE HCL 2% 2 ML VIAL (20MG/ML) ONE; +MIDAZOLAM HCL 1 MG/ML 2ML VIAL ONE; -MRLP17X PO; +ONDANSETRON INJ 2 MG/ML 2 ML VIAL IV PRN; +ONDANSETRON INJ 2 MG/ML 2 ML VIAL ONE; +PROMETHAZINE HCL INJ 6.25 MG in SODIUM CHLORIDE 0.9% 50ML 50 ML IV PRN; +PROPOFOL IV EMULSION 10 MG/ML 20 ML VIAL IV ONE
[2017-03-08 09:19] VITALS: BP 142/65; PULSE 95; TEMP 36.9; O2SAT 99; Ht 157.5 cm; Wt 95.0 kg
[2017-03-08 09:45] VITALS: PULSE 94; O2SAT 99
--- NOTE | 2017-03-08 11:07 | History and Physical ---
History Date of Service: Mar 08, 2017. Chief Complaint: bladder mass Primary Care Physician: Laney Verdugo D.O. Pt seen a urologist before?: Yes If yes, why?: bladder mass History of Present Illness Patient admitted several days last month with gross hematuria and acute blood loss anemia. Imaging shows bladder mass. We plan turbt today. Imaging CT, Ultrasound Laboratory Labs were reviewed and are within normal limits unless listed below. Labs are available in the chart and at [facility] Past History Past Medical History: COPD, diabetes, hypertension, lung disease (pulmonary hypertension and fibrosis), other Past Surgical History: tonsillectomy Family History Cardiac disorder FATHER Social History Smoking: quit greater than 1 year Alcohol: never Drug use: none Marital status: Housing status: lives with family Occupation status: retired Immunizations History of Influenza Vaccine: Yes Influenza Vaccine Date: Apr 27, 2016 History of Tetanus Vaccine?: Yes Tetanus Immunization Date: May 11, 2014 History of Pneumococcal: Yes Pneumococcal Date: Apr 27, 2016 History of MDRO Yes Allergies Coded Allergies: Adhesives (Verified Allergy, Unknown, welts, 03/08/17) Levofloxacin (Unverified Allergy, Unknown, 'severe neuropathy', 03/08/17) per [facility] pulm note Medications Home Medications: Home Meds and Scripts Medications Dose Route/Sig Max Daily Dose Days Date Category Vitamin D3 (Cholecalciferol) 1,000 Unit Tab 1 Tab PO QAM 30 02/27/17 Reported Acetylcysteine 10 % Lisa INH PRN 02/27/17 Reported Lisinopril 10 Mg Tab 10 Mg PO QAM 02/27/17 Reported Proventil 0.083% 2.5MG/3ML (Albuterol Sulf) 2.5 Mg/3 Ml Nebu 2.5 Mg INH Q6H PRN 02/27/17 Reported Prednisone 10 Mg Tab 10 Mg PO QAM 02/27/17 Reported Revatio (Sildenafil Citrate) 20 Mg Tab 3 Tabs PO TID 02/27/17 Reported Micro-K Ext Rel (Potassium Chloride) 10 Meq Capcr 20 Meq PO DAILY PRN 06/09/14 Reported Furosemide 20 Mg Tab 2 Tab PO DAILY PRN 06/09/14 Reported Atorvastatin Calcium (Atorvastatin) 10 Mg Tab 10 Mg PO QAM 06/08/14 Reported Wellbutrin Sr (Bupropion HCl) 150 Mg Ertab 150 Mg PO BID 03/26/14 Reported Glucophage (Metformin Hcl) 500 Mg Tab 500 Mg PO QAM 03/26/14 Reported Multivitamin (Multivitamins) Tab 1 Tab PO DAILY 04/15/09 Reported Paxil (Paroxetine HCl) 40 Mg Tab 40 Mg PO QPM 04/15/09 Reported Tracleer (Bosentan) 125 Mg Tab 125 Mg PO BID 04/15/09 Reported Inpatient Medications: Current Inpatient Medications Medications (Trade) Dose Ordered Sig/Aurelia Route Start Time Stop Time Status Last Admin Dose Admin Lactated Ringer's 1,000 ml @ 15 mls/hr Q24H IV 03/08/17 06:00 03/09/17 05:59 Fentanyl Citrate (Fentanyl Inj) 50 mcg Q5M PRN IV 03/08/17 09:45 03/08/17 15:35 Ondansetron HCl (Zofran Inj) 4 mg ONE PRN IV 03/08/17 09:45 03/08/17 13:45 Promethazine HCl 6.25 mg/Sodium Chloride 50.25 ml @ 202 mls/hr ONE PRN IV 03/08/17 09:45 03/08/17 15:45 Ephedrine Sulfate (EpHEDrine SULFATE INJ) 5 mg Q5M PRN IV 03/08/17 09:45 03/08/17 15:45 Atropine Sulfate (Atropine Sulfate 0.1MG/Ml Inj) 0.5 mg Q1M PRN IV 03/08/17 09:45 03/08/17 15:45 Review of Systems Review of Systems Constitutional: No fever, No chills, No weight loss Neurological: + dizzy Endocrine: + tired/sluggish Gastrointestinal: No abdominal pain, No indigestion, No nausea, No vomiting, No constipation Cardiovascular: No chest pain, No palpitations, No swelling ankles/feet Respiratory: + shortness of breath, + chronic cough Female : + frequent urination, + blood in urine, + leaking urine Physical Exam Vital Signs: Vital Signs Past 12 Hours Date Time Temp Pulse Resp B/P (MAP) Pulse Ox O2 Delivery O2 Flow Rate FiO2 03/08/17 09:45 94 20 99 Mask 5.0 03/08/17 09:19 36.9 95 20 142/65 (90) 99 Nasal Cannula 6 Physical Exam: General Appearance: WD/WN, no apparent distress, + obese Neck: no adenopathy Respiratory/Chest: chest non-tender, no accessory muscle use, + decreased breath sounds Cardiovascular: regular rate, rhythm Extremities: non-tender, normal inspection, no pedal edema, no calf tenderness Neurologic/Psychiatric: alert, normal mood/affect, oriented x 3 Skin: normal color, warm/dry, no rash Assessment & Plan Assessment & Plan bladder mass can only have spinal anesthesia due to severe lung dz plan turbt under spinal/saddle block if tumor involves right lateral wall may not be able to completely resect due to concern of obturator nerve reflex. We dont think a obturator block will be possible given her obesity. If we try a GET she will not be easy to get off the vent post-op. Plan resect what we can safely do here under spinal. If resection incomplete then will have to go to [facility].
--- NOTE | 2017-03-08 12:17 | [facility] Operative Report ---
Operative Report Operative Date Mar 08, 2017. Pre-Operative Diagnosis bladder tumor Post-Operative Diagnosis same, medium Procedure(s) Performed cystoscopy, transurethral resection of bladder tumor Surgeon Dr. Michael Mckeon Hat Brim Curler Surgeon(s) none Estimated Blood Loss 15ml Findings 40mm sessile bladder tumor right trigone lateral to right uo Specimens A. right lateral trigone bladder tumor (permanent) Drains [address] jaimes Anesthesia spinal (saddle block) Complication(s) None Disposition Recovery Room / PACU Indications gross hematuria and bladder mass Description of Procedure Patient was given a spinal anesthetic and sedated and placed in lithotomy position. Her genitals were prepped and draped in sterile fashion. Time out held with team. I placed a 26 fr rigid resectoscope to bladder. The urethra is unremarkable. The UOs are in normal location and slit shape. There is a 40mm sessile nodular tumor on the right trigone lateral to the right UO. I used thin loop and bipolar to carefully resect this tumor to its base. There are some beefy feeder vessels at base controlled with cautery. This mass has a thick base. I rinsed the chips put. I confirmed the right UO is spared and continues to efflux clear urine. I placed a [address] jaimes and began cbi. Bimanual revelas no fixation but some thickening of the right bladder base. She transferred to recovery under my escort, in stable condition. 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 Any exceptions are noted below.
--- NOTE | 2017-03-08 12:23 | Discharge Instructions ---
Discharge Instructions Date of Service Mar 08, 2017. Admission Reason for Admission: Bladder Tumor Discharge Discharge Diagnosis / Problem: bladder tumor Discharge Goals Goal(s): Improve disease control Activity Recommendations Activity Limitations: as noted below Lifting Limitations: no more than 10 pounds Exercise/Sports Limitations: as tolerated Shower/Bathe: no limitations Driving or Machine Use: resume 1 day after discharge . Instructions / Follow-Up Instructions / Follow-Up urine will be bloody on and off for weeks Discharge Diet Recommended Diet: Diabetes Type 1 Diet Fluid Restriction: None Procedures Procedures Performed: cystoscopy, transurethral resection of bladder tumor Pending Studies Studies pending at discharge: yes List of pending studies: path report Medical Emergencies . Who to Call and When: Medical Emergencies: If at any time you feel your situation is an emergency, please call 911 immediately. . Non-Emergent Contact Non-Emergency issues call your: Urologist ([phone]) Call Non-Emergent contact if: temperature is above 100.5, your pain is not controlled . . "Provider Documentation" section prepared by Gabriela Mckeon. . VTE Core Measure Inpt VTE Proph given/why not?: SCD's
[2017-03-08 13:00] VITALS: BP 139/58; PULSE 91; TEMP 36.7; O2SAT 98
--- NOTE | 2017-03-08 13:05 | Anesthesiology Progress Note ---
Anesthesia Post Op Note Date & Time Mar 08, 2017 at 13:05 Vital Signs Pain Intensity: 0 Vital Signs Past 12 Hours Date Time Temp Pulse Resp B/P (MAP) Pulse Ox O2 Delivery O2 Flow Rate FiO2 03/08/17 12:45 36.4 90 19 114/62 97 Nasal Cannula 5 03/08/17 12:35 92 23 117/57 96 Nasal Cannula 5 03/08/17 12:25 99 24 145/87 100 Oxymask 10 03/08/17 12:16 36.6 93 20 166/81 100 Oxymask 10 03/08/17 09:45 94 20 99 Mask 5.0 03/08/17 09:19 36.9 95 20 142/65 (90) 99 Nasal Cannula 6 Notes Mental Status: alert / awake / arousable, participated in evaluation Pt Amnestic to Procedure: Yes Nausea / Vomiting: adequately controlled Pain: adequately controlled Airway Patency, RR, SpO2: stable & adequate BP & HR: stable & adequate Hydration State: stable & adequate Neuraxial Anesthesia: was administered, sensory block is resolving Anesthetic Complications: no major complications apparent
[2017-03-08 13:30] VITALS: BP 147/63; PULSE 88; TEMP 37.1; O2SAT 98
[2017-03-08 14:00] VITALS: BP 137/57; PULSE 85; TEMP 37.5; O2SAT 98
== END | disposition home or self-care (01) ==
LOC: C.ACU 08:52
PROVIDERS: ATTEND Urology
DX: C67.0 Malignant neoplasm of trigone of bladder (principal); F41.9 Anxiety disorder, unspecified; E11.9 Type 2 diabetes mellitus without complications; M81.0 Age-related osteoporosis without current pathological fracture; K21.9 Gastro-esophageal reflux disease without esophagitis; E66.9 Obesity, unspecified; G47.33 Obstructive sleep apnea (adult) (pediatric); I10 Essential (primary) hypertension; E78.5 Hyperlipidemia, unspecified; I50.9 Heart failure, unspecified; Z85.038 Personal history of other malignant neoplasm of large intestine

== ENCOUNTER 2017-03-10 19:41 | Emergency (ER) | payer OTHER, MEDICARE ==
[~2017-03-10] VITALS: Ht 157.5 cm; Wt 93.5 kg
[~2017-03-10 19:41] MED LIST changes: -ACET-1047 PO; -ATRINS INH; -ATROPINE SULFATE 0.1 MG/ML 5ML SYR IV PRN; -AZIT500T26 PO; -BELLADONNA/OPIUM SUPP 60 MG SUPP PR ONE; -CEFAZOLIN IV 2,000 MG/60 ML D5W IV ONE; -CEFU1TAB35 PO; -DEXAMETHASONE SOD INJ 4 MG/ML VIAL ONE; -EpHEDrine SULFATE INJ 50 MG/ML AMP IV PRN; -FENTANYL CITRATE INJ 50 MCG/1 ML 2 ML VIAL IV PRN; -FENTANYL CITRATE INJ 50 MCG/1 ML 2 ML VIAL ONE; -LACTATED RINGER'S 1000ML 1,000 ML IV SCH; -LIDOCAINE HCL 2% 2 ML VIAL (20MG/ML) ONE; -LRS10 PO; -MIDAZOLAM HCL 1 MG/ML 2ML VIAL ONE; -ONDANSETRON INJ 2 MG/ML 2 ML VIAL IV PRN; -ONDANSETRON INJ 2 MG/ML 2 ML VIAL ONE; -PRED20TA2 PO; -PROMETHAZINE HCL INJ 6.25 MG in SODIUM CHLORIDE 0.9% 50ML 50 ML IV PRN; -PROPOFOL IV EMULSION 10 MG/ML 20 ML VIAL IV ONE; -ULT50 PO; -XPNINS1255 INH
[2017-03-10 19:44] VITALS: TEMP 36.8
[2017-03-10] MEDS ORDERED: ALBUT/IPRATROP 3MG/0.5MG NEB 3 ML VIAL INH STA (19:52)
--- NOTE | 2017-03-10 20:04 | EMERGENCY ROOM VISIT NOTE ---
History Report prepared by Emmanuel: Vitaly Brown Under the Supervision of: Dr. Vikas Hernandez D.O. First contact with patient: 19:49 Chief Complaint: SHORTNESS OF BREATH Stated Complaint: BACK PAIN (LUNG) History of Present Illness The patient is a 67 year old female who presents to the Emergency Room with complaints of right upper back pain that began two days ago. She rates her pain a 2/10 in severity. At this time, the patient received a bladder tumor removal procedure. It was laparoscopic, and she received a spinal epidural. Ever since she got home, she has been experiencing the pain. Secondary to the pain, she is having difficulty breathing. She also states that she does not think she is urinating as much as she usually does. Also, she notes her feet are mildly swollen. She denies any fever, cough, nausea, vomiting, or any other pain. She had been on Coumadin for years, but she was taken off of it 1.5 weeks ago. She denies any history of blood clots. She has a history of idiopathic pulmonary fibrosis, bronchiectasis, and pulmonary hypertension. She used a nebulizer at night. She is on 5L of oxygen at all times and 6-10L when she is active. Source of History: patient Onset: 2 days ago Position: back (upper right) Symptom Intensity: 2/10 Quality: other (Discomfort) Timing: constant Associated Symptoms: + SOB (secondary to pain), + urinary symptoms (Not urinating as much), No fevers, No headache, No cough, No neck pain, No chest pain, No nausea, No vomiting, No abdominal pain Review of Systems See HPI for pertinent positives & negatives. A total of 10 systems reviewed and were otherwise negative. Past Medical & Surgical Medical Problems: (1) Chronic respiratory failure with hypoxia and hypercapnia (2) Cor pulmonale (3) DM type 2 (diabetes mellitus, type 2) (4) Dyslipidemia (5) HTN (hypertension) (6) Pulmonary fibrosis (7) Pulmonary HTN Surgical Problems: (1) History of tonsillectomy Family History Cardiac disorder FATHER Social History Smoking Status: Former Smoker Alcohol Use: none Drug Use: none Marital Status: Housing Status: lives with family Occupation Status: retired Current/Historical Medications Scheduled Atorvastatin (Atorvastatin Calcium), 10 MG PO QAM Azithromycin (Zithromax), 500 MG PO DAILY Bosentan (Tracleer), 125 MG PO BID Bupropion (Wellbutrin Sr), 150 MG PO BID Cholecalciferol (Vitamin D3), 1 TAB PO QAM Lisinopril (Lisinopril), 10 MG PO QAM Metformin Hcl (Glucophage), 500 MG PO QAM Multivitamin (Multivitamin), 1 TAB PO DAILY Paroxetine (Paxil), 40 MG PO QPM Prednisone (Prednisone Tab), 40 MG PO DAILY Prednisone Tab (Prednisone), 10 MG PO QAM Sildenafil Citrate (Revatio), 3 TABS PO TID Scheduled PRN Acetylcysteine (Acetylcysteine), INH for Shortness of Breath Albuterol Sulf (Proventil 0.083% 2.5MG/3ML), 2.5 MG INH Q6H PRN for Shortness of Breath Furosemide (Furosemide), 2 TAB PO DAILY PRN for edema Phenazopyridine Hcl (Pyridium), 200 MG PO TID PRN for Bladder pain Potassium Chloride (Micro-K Ext Rel), 20 MEQ PO DAILY PRN for with Lasix Allergies Coded Allergies: Adhesives (Verified Allergy, Unknown, welts, 03/10/17) Levofloxacin (Unverified Allergy, Unknown, 'severe neuropathy', 03/10/17) per [facility] pulm note Physical Exam Vital Signs Date Time Temp Pulse Resp B/P (MAP) Pulse Ox O2 Delivery O2 Flow Rate FiO2 03/10/17 22:18 68 18 138/76 98 03/10/17 21:26 72 18 145/72 98 Nasal Cannula 4.0 03/10/17 21:06 Nasal Cannula 4.0 98 03/10/17 20:26 91 03/10/17 20:15 98 Nasal Cannula 4.0 03/10/17 20:15 98 Nasal Cannula 4.0 03/10/17 19:44 36.8 95 18 133/64 96 Nasal Cannula 5.0 Physical Exam GENERAL: Patient is awake, alert, and in no acute distress. Patient is resting comfortably and showing no signs of anxiety EYES: The conjunctivae are clear. The pupils are round and reactive. EARS, NOSE, MOUTH AND THROAT: The nose is without any evidence of any deformity. Mucous membranes are moist tongue is midline NECK: The neck is nontender and supple. RESPIRATORY: Breath sounds diminished throughout. There are rales and wheezing in the right upper lung field. Mild tachypnea noted. CARDIOVASCULAR: Regular rate and rhythm noted there no murmurs rubs or gallops normal S1 normal S2 GASTROINTESTINAL: The abdomen is soft. Bowel sounds are present in all quadrants. Abdomen is nontender MUSCULOSKELETAL/EXTREMITIES: There is no evidence of gross deformity full range of motion is noted in the hips and shoulders. No calf tenderness. SKIN: There is no obvious evidence of any rash. There are no petechiae, pallor or cyanosis noted. Pedal edema bilaterally. NEUROLOGIC: Patient is awake alert and oriented x3. Medical Decision & Procedures ER Provider Diagnostic Interpretation: Radiology results as stated below per my review and radiologist interpretation: CHEST ONE VIEW PORTABLE HISTORY: EVALUATE RESPIRATORY DISTRESS.DYSPNEA COMPARISON: Chest 06/11/2014. FINDINGS: The heart remains mildly enlarged. No pneumothorax. No pleural effusions. Upper lobe predominant airspace opacities persist with associated large biapical bulla. This remains unchanged and is consistent with chronic lung disease/scarring. There is also stable chronic interstitial thickening throughout the lungs. No new focal lung consolidations. No evidence for pulmonary edema. IMPRESSION: No change in the chronic parenchymal opacities which demonstrate upper lobe predominance. This favors chronic scarring or sarcoidosis. No new focal lung consolidations. Electronically signed by: Sonido Shell M.D. 03/10/2017 8:09 PM Dictated Date/Time: 03/10/2017 8:06 PM CHEST CTA for PULMONARY ARTERIES CT DOSE: 624.94 mGy.cm HISTORY: Short of breath. TECHNIQUE: Multiaxial CT images of the chest were performed following the intravenous administration of contrast to evaluate the pulmonary arteries. Maximal intensity projection images were also obtained. A dose lowering technique was utilized adhering to the principles of ALARA. COMPARISON STUDY: Chest CT 06/09/2014. FINDINGS: A 6 mm hypodense lesion within the right hepatic lobe. This is too small to characterize but favors a cyst. The visualized spleen and adrenal glands are unremarkable. Mediastinal lymph nodes have decreased in size. No lymphadenopathy. The heart is normal in size. No pleural or pericardial effusions. Small left posterior calcified pleural plaques. Punctate focus of gas lateral to the midesophagus remain stable compared to the 2013 examination. This favors a tiny diverticulum. No suspicious lytic or blastic osseous lesions. Normal caliber thoracic aorta with no evidence for dissection. The main pulmonary artery is distended up to 4 cm consistent with pulmonary hypertension. No definite filling defects within the pulmonary arteries to suggest pulmonary embolus. No pneumothorax. There are low lung volumes with mild bronchiectasis. Moderate emphysema. Interstitial thickening and diffuse groundglass densities persist. Upper lobe predominant patchy airspace opacities with scattered linear airspace opacities are again noted. There is a new peripheral irregular opacification within the base of the right lower lobe. However, overall there appears to be slight improved aeration. IMPRESSION: 1. No evidence for pulmonary embolus. 2. Low lung volumes, bronchiectasis, groundglass densities, and scattered patchy and linear consolidative airspace opacities favor chronic interstitial lung disease. Overall this is slightly improved. However, there is a new patchy focal airspace opacity within the base of the right lower lobe which may also be due to the chronic change. A small superimposed pneumonia is not entirely excluded. 3. Moderate emphysema. 4. Pulmonary arterial hypertension. Electronically signed by: Sonido Shell M.D. 03/10/2017 9:18 PM Dictated Date/Time: 03/10/2017 9:06 PM Laboratory Results 03/10/17 20:05 Red Blood Count 3.34, Mean Corpuscular Volume 94.6, Mean Corpuscular Hemoglobin 26.3, Mean Corpuscular Hemoglobin Concent 27.8, Mean Platelet Volume 8.6, Neutrophils (%) (Auto) 75.6, Lymphocytes (%) (Auto) 14.2, Monocytes (%) (Auto) 7.0, Eosinophils (%) (Auto) 2.4, Basophils (%) (Auto) 0.5, Neutrophils # (Auto) 4.63, Lymphocytes # (Auto) 0.87, Monocytes # (Auto) 0.43, Eosinophils # (Auto) 0.15, Basophils # (Auto) 0.03 03/10/17 20:05 Test 03/10/17 00:00 03/10/17 20:05 03/10/17 20:09 03/10/17 20:35 Urine Color DK YELLOW Urine Appearance CLEAR (CLEAR) Urine pH 5.5 (4.5-7.5) Urine Specific [place] > 1.045 (1.000-1.030) Urine Protein 1+ (NEG) Urine Glucose (UA) NEG (NEG) Urine Ketones NEG (NEG) Urine Occult Blood 3+ (NEG) Urine Nitrite NEG (NEG) Urine Bilirubin NEG (NEG) Urine Urobilinogen NEG (NEG) Urine Leukocyte Esterase TRACE (NEG) Urine WBC (Auto) 5-10 /hpf (0-5) Urine RBC (Auto) >30 /hpf (0-4) Urine Hyaline Casts (Auto) 1-5 /lpf (0-5) Urine Epithelial Cells (Auto) 10-20 /lpf (0-5) Urine Bacteria (Auto) NEG (NEG) White Blood Count 6.13 K/uL (4.8-10.8) Red Blood Count 3.34 M/uL (4.2-5.4) Hemoglobin 8.8 g/dL (12.0-16.0) Hematocrit 31.6 % (37-47) Mean Corpuscular Volume 94.6 fL (80-100) Mean Corpuscular Hemoglobin 26.3 pg (25-34) Mean Corpuscular Hemoglobin Concent 27.8 g/dl (32-36) Platelet Count 202 K/uL (130-400) Mean Platelet Volume 8.6 fL (7.4-10.4) Neutrophils (%) (Auto) 75.6 % Lymphocytes (%) (Auto) 14.2 % Monocytes (%) (Auto) 7.0 % Eosinophils (%) (Auto) 2.4 % Basophils (%) (Auto) 0.5 % Neutrophils # (Auto) 4.63 K/uL (1.4-6.5) Lymphocytes # (Auto) 0.87 K/uL (1.2-3.4) Monocytes # (Auto) 0.43 K/uL (0.11-0.59) Eosinophils # (Auto) 0.15 K/uL (0-0.5) Basophils # (Auto) 0.03 K/uL (0-0.2) RDW Standard Deviation 48.0 fL (36.4-46.3) RDW Coefficient of Variation 13.8 % (11.5-14.5) Immature Granulocyte % (Auto) 0.3 % Immature Granulocyte # (Auto) 0.02 K/uL (0.00-0.02) Microcytosis PRESENT Anion Gap -16.0 mmol/L (3-11) Est Creatinine Clear Calc Drug Dose 44.5 ml/min Estimated GFR () 48.8 Estimated GFR (Non- 42.1 BUN/Creatinine Ratio 20.3 (10-20) Calcium Level 9.8 mg/dl (8.5-10.1) Total Bilirubin 0.1 mg/dl (0.2-1) Aspartate Amino Transf (AST/SGOT) 10 U/L (15-37) Alanine Aminotransferase (ALT/SGPT) 15 U/L (12-78) Alkaline Phosphatase 68 U/L (45-117) Troponin I < 0.015 ng/ml (0-0.045) Pro-B-Type Natriuretic Peptide 170 pg/ml (0-900) Total Protein 7.2 gm/dl (6.4-8.2) Albumin 2.7 gm/dl (3.4-5.0) Globulin 4.5 gm/dl (2.5-4.0) Albumin/Globulin Ratio 0.6 (0.9-2) Bedside D-Dimer > 450 ng/mlFEU (0-450) Prothrombin Time 10.0 SECONDS (9.0-12.0) Prothromb Time International Ratio 0.9 (0.9-1.1) Activated Partial Thromboplast Time 26.5 SECONDS (21.0-31.0) Partial Thromboplastin Ratio 1.0 Test 03/10/17 21:23 Venous Blood pH 7.31 (7.36-7.41) Venous Blood Partial Pressure CO2 85 mmHg (38.0-50.0) Venous Blood Partial Pressure O2 33 mmHg Venous Blood HCO3 42 mmol/L Venous Blood Oxygen Saturation 63.0 % Venous Blood Base Excess 13.4 mEq/L Laboratory results per my review. Medications Administered Medications (Trade) Dose Ordered Sig/Aurelia Route Start Time Stop Time Status Last Admin Dose Admin Albuterol/ Ipratropium (Duoneb) 3 ml NOW STAT INH 03/10/17 19:52 03/10/17 19:54 DC 03/10/17 19:52 3 ML Sodium Chloride 500 ml @ 999 mls/hr Q31M STAT IV 03/10/17 20:33 03/10/17 21:03 DC 03/10/17 20:33 999 MLS/HR Prednisone (PredniSONE TAB) 60 mg NOW STAT PO 03/10/17 21:53 03/10/17 21:54 DC 03/10/17 21:59 60 MG Azithromycin (Zithromax Tab) 500 mg NOW STAT PO 03/10/17 21:53 03/10/17 21:54 DC 03/10/17 21:59 500 MG ECG Indication: SOB/dyspnea Rate (beats per minute): 92 Rhythm: normal sinus Findings: no ectopy, other (No acute ST segment abnormalities) Comparison ECG Date: 08 Mar 2017 Change: no significant change ED Course 1948: The patient was evaluated in room B9. A complete history and physical examination were performed. 1951: Ordered DuoNeb 3 ml INH 2032: Ordered NSS 500 ml @ 999 mls/hr IV 2149: I spoke with Dr. Alfred - Pulmonary Physician covering for Dr. Verdugo, at this time. We discussed the patient's case. She believes that the patient should be started on antibiotics as discharged home. 2152: Ordered Zithromax Tab 500 mg PO, Prednisone 60 mg PO 2157: Upon reevaluation, the patient is resting. I discussed the results and treatment plan with her. She verbalized agreement of the treatment plan. She was discharged home. Medical Decision Differential diagnosis: Etiologies such as infections, reactive airway disease, pneumonia, pneumothorax , COPD, CHF, cardiac ischemia, pulmonary embolism, musculoskeletal, gastrointestinal, as well as others were entertained. Nursing notes were reviewed The patient is a 67-year-old female who presented to the emergency department or an evaluation of chest pain. The patient had pain over her posterior right scapular region. The patient recently had a procedure and her anticoagulation was held. She has a history of venous thromboembolic disease and pulmonary embolism. The patient started having this pain and was told to come to the emergency department for the possibility of pulmonary embolism. The patient's CT the chest did not reveal any signs of pulmonary embolism but did show possible pneumonia. The patient was treated with bronchodilator therapy steroids and antibiotics in the emergency department. She had an elevated CO2 but this appears to be chronic. I discussed her case with the covering leather colorer. At this time I recommended that she rest and continue all medications as before as well as continuing her home oxygen and sleep apnea. She was also encouraged to call her primary leather colorer and return to emergency department immediately if symptoms change worsen or the need arises. Medication Reconcilliation Current Medication List: was personally reviewed by me Blood Pressure Screening Patient's blood pressure: Normal blood pressure Blood pressure disposition: Did not require urgent referral Consults Time Called: 2144 Consulting Physician: Dr. Alfred - Pulmonary, covering for Dr. Verdugo Returned Call: 2149 I discussed the patient's case with her. Please see the ED course for further information. Impression Primary Impression: PNA (pneumonia) Additional Impressions: Chest pain Chronic respiratory acidosis Scribe Attestation The scribe's documentation has been prepared under my direction and personally reviewed by me in its entirety. I confirm that the note above accurately reflects all work, treatment, procedures, and medical decision making performed by me. Departure Information Dispostion Home / Self-Care Prescriptions Azithromycin (Zithromax) 500 Mg Tab 500 MG PO DAILY, #4 TAB Prov: Vikas Hernandez, DO 03/10/17 Prednisone (Prednisone Tab) 20 Mg Tab 40 MG PO DAILY, #10 TAB Prov: Vikas Hernandez, DO 03/10/17 Referrals Laney Verdugo D.O. (PCP) Forms HOME CARE DOCUMENTATION FORM, IMPORTANT VISIT INFORMATION Patient Instructions My [facility], Pneumonia Additional Instructions Call your leather colorer to schedule a follow-up appointment. Rest and avoid any strenuous activity. Continue all medications as prescribed. Continue using your nebulizer as well as your C Pap as instructed. Return to the emergency apartment immediately if symptoms change worsen or the need arises. Problem Qualifiers Primary Impression: PNA (pneumonia) Pneumonia type: due to unspecified organism Laterality: right Lung location : unspecified part of lung Qualified Codes: J18.9 - Pneumonia, unspecified organism Additional Impressions: Chest pain Chest pain type: unspecified Qualified Codes: R07.9 - Chest pain, unspecified
--- NOTE | 2017-03-10 20:10 | DIAGNOSTIC IMAGING REPORT ---
CHEST ONE VIEW PORTABLE HISTORY: EVALUATE RESPIRATORY DISTRESS.DYSPNEA COMPARISON: Chest 06/11/2014. FINDINGS: The heart remains mildly enlarged. No pneumothorax. No pleural effusions. Upper lobe predominant airspace opacities persist with associated large biapical bulla. This remains unchanged and is consistent with chronic lung disease/scarring. There is also stable chronic interstitial thickening throughout the lungs. No new focal lung consolidations. No evidence for pulmonary edema. IMPRESSION: No change in the chronic parenchymal opacities which demonstrate upper lobe predominance. This favors chronic scarring or sarcoidosis. No new focal lung consolidations. Electronically signed by: Sonido Shell M.D. 03/10/2017 8:09 PM Dictated Date/Time: 03/10/2017 8:06 PM
[2017-03-10 20:15] VITALS: O2SAT 98; Ht 157.5 cm; Wt 93.5 kg
[2017-03-10 20:30] LABS: ALT/SGPT 15 U/L (12-78); BLOOD UREA NITROGEN 26 mg/dl (7-18); BUN/CREATININE RATIO 20.3 (10-20); CALCIUM 9.8 mg/dl (8.5-10.1); CHLORIDE 97 mmol/L (98-107); GLUCOSE 124 mg/dl (70-99); POTASSIUM 4.6 mmol/L (3.5-5.1); SODIUM 141 mmol/L (136-145)
[2017-03-10] MEDS ORDERED: SODIUM CHLORIDE 0.9% 500ML 500 ML IV STA (20:33)
[2017-03-10 20:35] LABS: ALB/GLOB RATIO 0.6 (0.9-2); ALKALINE PHOSPHATASE 68 U/L (45-117); AST/SGOT 10 U/L (15-37)
[2017-03-10] MEDS ORDERED: OPTIRAY 320 IV PRN (20:45)
[2017-03-10 21:06] LABS: CARBON DIOXIDE 60 mmol/L (21-32)
[2017-03-10 21:15] LABS: INR 0.9 (0.9-1.1)
--- NOTE | 2017-03-10 21:19 | DIAGNOSTIC IMAGING REPORT ---
CHEST CTA for PULMONARY ARTERIES CT DOSE: 624.94 mGy.cm HISTORY: Short of breath. TECHNIQUE: Multiaxial CT images of the chest were performed following the intravenous administration of contrast to evaluate the pulmonary arteries. Maximal intensity projection images were also obtained. A dose lowering technique was utilized adhering to the principles of ALARA. COMPARISON STUDY: Chest CT 06/09/2014. FINDINGS: A 6 mm hypodense lesion within the right hepatic lobe. This is too small to characterize but favors a cyst. The visualized spleen and adrenal glands are unremarkable. Mediastinal lymph nodes have decreased in size. No lymphadenopathy. The heart is normal in size. No pleural or pericardial effusions. Small left posterior calcified pleural plaques. Punctate focus of gas lateral to the midesophagus remain stable compared to the 2013 examination. This favors a tiny diverticulum. No suspicious lytic or blastic osseous lesions. Normal caliber thoracic aorta with no evidence for dissection. The main pulmonary artery is distended up to 4 cm consistent with pulmonary hypertension. No definite filling defects within the pulmonary arteries to suggest pulmonary embolus. No pneumothorax. There are low lung volumes with mild bronchiectasis. Moderate emphysema. Interstitial thickening and diffuse groundglass densities persist. Upper lobe predominant patchy airspace opacities with scattered linear airspace opacities are again noted. There is a new peripheral irregular opacification within the base of the right lower lobe. However, overall there appears to be slight improved aeration. IMPRESSION: 1. No evidence for pulmonary embolus. 2. Low lung volumes, bronchiectasis, groundglass densities, and scattered patchy and linear consolidative airspace opacities favor chronic interstitial lung disease. Overall this is slightly improved. However, there is a new patchy focal airspace opacity within the base of the right lower lobe which may also be due to the chronic change. A small superimposed pneumonia is not entirely excluded. 3. Moderate emphysema. 4. Pulmonary arterial hypertension. Electronically signed by: Sonido Shell M.D. 03/10/2017 9:18 PM Dictated Date/Time: 03/10/2017 9:06 PM
[2017-03-10 21:21] LABS: HEMATOCRIT 31.6 % (37-47); MEAN CELL VOLUME 94.6 fL (80-100); MEAN CORPUSCULAR HEMOGLOBIN 26.3 pg (25-34); MEAN CORPUSCULAR HGB CONC 27.8 g/dl (32-36); MEAN PLATELET VOLUME 8.6 fL (7.4-10.4); PLATELET COUNT 202 K/uL (130-400); RED BLOOD COUNT 3.34 M/uL (4.2-5.4); WHITE BLOOD COUNT 6.13 K/uL (4.8-10.8)
[2017-03-10 21:25] LABS: BASO % 0.5 %; BASO ABS # 0.03 K/uL (0-0.2); COMPLETE YES; EOS % 2.4 %; IG% 0.3 %; LYMPH % 14.2 %; LYMPH ABS # 0.87 K/uL (1.2-3.4); MICROCYTOSIS PRESENT; NEUT % 75.6 %
[2017-03-10 21:37] LABS: VEN BLOOD GAS BASE EXCESS 13.4 mEq/L
[2017-03-10] MEDS ORDERED: AZITHROMYCIN 250 MG TAB PO STA (21:53)
[2017-03-10] MEDS ORDERED: AZIT500T26 PO (21:55)
[2017-03-10] MEDS ORDERED: PRED20TA2 PO (21:55)
[2017-03-10 22:18] VITALS: BP 138/76; PULSE 68; O2SAT 98
[2017-03-10 22:19] LABS: URINE APPEARANCE CLEAR (CLEAR); URINE BILIRUBIN NEG (NEG); URINE COLOR DK YELLOW; URINE PH 5.5 (4.5-7.5); URINE SPECIFIC GRAVITY > 1.045 (1.000-1.030); UROBILINOGEN NEG (NEG)
[2017-03-10 22:37] LABS: MANUAL MICROSCOPIC REQUIRED? NO; REVIEW REQ? NO; URINE NITRITE NEG (NEG)
[2017-05-16] MEDS ORDERED: XPNINS1255 INH (12:07)
[2017-05-16] MEDS ORDERED: ATRINS INH (12:07)
[2017-05-16] MEDS ORDERED: PRED10TA PO (12:07)
[2017-05-16] MEDS ORDERED: ACET-1047 PO (12:07)
[2017-05-16] MEDS ORDERED: CEFU1TAB35 PO (12:18)
== END 2017-03-10 22:19 | disposition home or self-care (01) ==
LOC: C.EDB 19:41
DX: J18.9 Pneumonia, unspecified organism (principal); E87.2 Acidosis; J43.9 Emphysema, unspecified; R07.9 Chest pain, unspecified; I27.2 Other secondary pulmonary hypertension; Z79.01 Long term (current) use of anticoagulants; E11.9 Type 2 diabetes mellitus without complications; Z79.899 Other long term (current) drug therapy

== ENCOUNTER 2017-05-13 14:51 | Inpatient (IN) | payer OTHER, MEDICARE ==
[~2017-05-13] VITALS: Ht 157.5 cm; Wt 93.4 kg
[~2017-05-13 14:51] MED LIST changes: +AZIT500T26 PO; -PHEN-775 PO; +PRED20TA2 PO
[2017-05-13 15:22] LABS: BASO ABS # 0.05 K/uL (0-0.2); COMPLETE YES; EOS % 3.2 %; HEMATOCRIT 31.1 % (37-47); IG% 0.4 %; MEAN CELL VOLUME 93.7 fL (80-100); MEAN CORPUSCULAR HEMOGLOBIN 27.7 pg (25-34); MEAN CORPUSCULAR HGB CONC 29.6 g/dl (32-36); MEAN PLATELET VOLUME 9.8 fL (7.4-10.4); MONO % 11.2 %; NEUT % 70.2 %; PLATELET COUNT 191 K/uL (130-400); RED BLOOD COUNT 3.32 M/uL (4.2-5.4); WHITE BLOOD COUNT 5.01 K/uL (4.8-10.8)
[2017-05-13] MEDS ORDERED: LRS10 PO (15:31)
[2017-05-13] MEDS ORDERED: ULT50 PO (15:31)
--- NOTE | 2017-05-13 15:36 | EMERGENCY ROOM VISIT NOTE ---
History Report prepared by Emmanuel: Linda Thomas Under the Supervision of: Dr. Juan Peña D.O. First contact with patient: 14:52 Stated Complaint: UNABLE TO AMBULATE History of Present Illness The patient is a 67 year old female who presents to the Emergency Room with complaints of an episode of a fall beginning last night. The patient states that she has a history of pulmonary fibrosis and is not on any medication after having adverse side effects. She reports that last night she went to stand up and both of her legs were weak and she fell to the floor onto her buttock and sat down. She notes that she did not lose consciousness or have any head injury. She complains of continued bilateral leg weakness and nausea. The patient denies any back pain, abdominal pain, changes in bowel movements, tingling/numbness in groin, inability to move the legs, fever, chest pain, vomiting, diarrhea, and new shortness of breath. She states that she normally wears 5L of oxygen when resting but uses 8-10L with exertion. She notes that she recently had a bladder infection and benign tumor that was removed. Source of History: patient Onset: last night Position: other (global) Quality: other (fall) Timing: other (episode) Associated Symptoms: + nausea, + weakness, No fevers, No chest pain, No SOB , No vomiting, No back pain, No diarrhea, No numbness Note: The patient denies any changes in bowel movements, tingling. Review of Systems See HPI for pertinent positives & negatives. A total of 10 systems reviewed and were otherwise negative. Past Medical & Surgical Medical Problems: (1) Chronic respiratory failure with hypoxia and hypercapnia (2) Cor pulmonale (3) DM type 2 (diabetes mellitus, type 2) (4) Dyslipidemia (5) HTN (hypertension) (6) Pulmonary fibrosis (7) Pulmonary HTN (8) UTI (urinary tract infection) (9) Weakness Surgical Problems: (1) History of tonsillectomy Family History Cardiac disorder FATHER Social History Smoking Status: Former Smoker Alcohol Use: none Drug Use: none Marital Status: Housing Status: lives with family Occupation Status: retired Current/Historical Medications Scheduled Atorvastatin (Atorvastatin Calcium), 10 MG PO QAM Baclofen (Baclofen), 10 MG PO BID Bosentan (Tracleer), 125 MG PO BID Cholecalciferol (Vitamin D3), 1 TAB PO QAM Lisinopril (Lisinopril), 10 MG PO QAM Metformin Hcl (Glucophage), 500 MG PO QAM Multivitamin (Multivitamin), 1 TAB PO DAILY Paroxetine (Paxil), 40 MG PO QPM Prednisone (Prednisone Tab), 40 MG PO DAILY Prednisone Tab (Prednisone), 10 MG PO QAM Sildenafil Citrate (Revatio), 3 TABS PO TID Scheduled PRN Acetylcysteine (Acetylcysteine), INH for Shortness of Breath Albuterol Sulf (Proventil 0.083% 2.5MG/3ML), 2.5 MG INH Q6H PRN for Shortness of Breath Furosemide (Furosemide), 2 TAB PO DAILY PRN for edema Potassium Chloride (Micro-K Ext Rel), 20 MEQ PO DAILY PRN for with Lasix Tramadol HCl (Tramadol HCl), 50 MG PO Q6H PRN for Pain Allergies Coded Allergies: Adhesives (Verified Allergy, Unknown, welts, 05/13/17) Levofloxacin (Unverified Allergy, Unknown, 'severe neuropathy', 05/13/17) per [facility] pulm note Physical Exam Vital Signs Date Time Temp Pulse Resp B/P (MAP) Pulse Ox O2 Delivery O2 Flow Rate FiO2 05/13/17 16:29 104 23 162/63 100 Nasal Cannula 8.0 05/13/17 15:18 85 05/13/17 15:02 37.1 89 24 178/78 96 Nasal Cannula 5.0 Physical Exam GENERAL: sitting up in bed, disheveled, chronically ill appearing HEAD: normal cephalic, atraumatic EYE EXAM: normal conjunctiva OROPHARYNX: no exudate, no erythema, lips, buccal mucosa, and tongue normal and mucous membranes are moist EARS: TMs clear b/l NECK: supple, no nuchal rigidity, no adenopathy, non-tender CHEST: stable to compression anteriorly and posteriorly LUNGS: clear to auscultation. Normal chest wall mechanics HEART: no murmurs, S1 normal and S2 normal ABDOMEN: abdomen soft, non-tender, normo-active bowel sounds, no masses, no rebound or guarding. PELVIS: stable to compression anteriorly and posteriorly BACK: Back is symmetrical on inspection and there is no deformity, no midline tenderness, no CVA tenderness. UPPER EXTREMITIES: full active and passive range of motion of all joints without tenderness to palpation LOWER EXTREMITIES: Flexion extension at hip, knees, ankles, and EHL weak but 5/ 5 bilaterally, DP 2/4 bilaterally NEURO EXAM: Normal sensorium, cranial nerves II-XII grossly intact, normal speech, no gross weakness of arms. GCS: 15. Medical Decision & Procedures ER Provider Diagnostic Interpretation: Radiology results as stated below per my review and the radiologist's interpretation: PELVIS 1 OR 2 VIEW ROUTINE FINDINGS: Bones are mildly demineralized. Moderate degenerative changes of the bilateral hips. No acute fracture or subluxation identified. Degenerative changes are seen about the lower lumbar spine. Soft tissues are unremarkable. Soft tissues are unremarkable. IMPRESSION: Degenerative changes as above without acute fracture or subluxation. The above report was generated using voice recognition software. It may contain grammatical, syntax or spelling errors. Electronically signed by: Davian Grady M.D. 05/13/2017 4:35 PM Dictated Date/Time: 05/13/2017 4:33 PM LUMBAR SPINE 2 OR 3 VIEWS FINDINGS: 5 lumbar-type vertebral segments are present. Bones are moderately demineralized. Mild convex left curvature of the lumbar spine. No acute fracture or subluxation identified. No compression deformity is seen multilevel endplate spurring and facet arthropathy. Severe intervertebral disc space narrowing at L5-S1. Disc space narrowing is also seen at T11-T12 and T12-L1. Moderate degenerative changes of the hips. There is atherosclerosis of the aorta. Moderate stool burden. IMPRESSION: 1. No acute fracture or subluxation. No acute compression deformity. 2. Multilevel endplate spurring and facet arthropathy. Severe intervertebral disc space narrowing at L5-S1. 3. Osteopenia. The above report was generated using voice recognition software. It may contain grammatical, syntax or spelling errors. Electronically signed by: Davian Grady M.D. 05/13/2017 4:33 PM Dictated Date/Time: 05/13/2017 4:29 PM CHEST ONE VIEW PORTABLE FINDINGS: Cardiac silhouette is mildly enlarged. There is atherosclerosis of the aorta. No pneumothorax. There is chronic blunting of the costophrenic angles. Upper lobe predominant mixed interstitial and alveolar opacities with biapical bulla formation redemonstrated these findings appear stable from comparison. There are new opacities of the right perihilar distribution and right lung base. The bones are grossly intact. IMPRESSION: New patchy alveolar opacities of the right perihilar distribution and right lung base suggest atelectasis or pneumonia on a background of chronic upper lobe predominant mixed interstitial and alveolar opacities compatible with chronic interstitial lung disease. The above report was generated using voice recognition software. It may contain grammatical, syntax or spelling errors. Electronically signed by: Davian Grady M.D. 05/13/2017 4:39 PM Dictated Date/Time: 05/13/2017 4:35 PM Laboratory Results 05/13/17 15:00 Red Blood Count 3.32, Mean Corpuscular Volume 93.7, Mean Corpuscular Hemoglobin 27.7, Mean Corpuscular Hemoglobin Concent 29.6, Mean Platelet Volume 9.8, Neutrophils (%) (Auto) 70.2, Lymphocytes (%) (Auto) 14.0, Monocytes (%) (Auto) 11.2, Eosinophils (%) (Auto) 3.2, Basophils (%) (Auto) 1.0, Neutrophils # (Auto ) 3.52, Lymphocytes # (Auto) 0.70, Monocytes # (Auto) 0.56, Eosinophils # (Auto ) 0.16, Basophils # (Auto) 0.05 05/13/17 15:00 Test 05/13/17 15:00 05/13/17 15:30 05/13/17 15:39 White Blood Count 5.01 K/uL (4.8-10.8) Red Blood Count 3.32 M/uL (4.2-5.4) Hemoglobin 9.2 g/dL (12.0-16.0) Hematocrit 31.1 % (37-47) Mean Corpuscular Volume 93.7 fL (80-100) Mean Corpuscular Hemoglobin 27.7 pg (25-34) Mean Corpuscular Hemoglobin Concent 29.6 g/dl (32-36) Platelet Count 191 K/uL (130-400) Mean Platelet Volume 9.8 fL (7.4-10.4) Neutrophils (%) (Auto) 70.2 % Lymphocytes (%) (Auto) 14.0 % Monocytes (%) (Auto) 11.2 % Eosinophils (%) (Auto) 3.2 % Basophils (%) (Auto) 1.0 % Neutrophils # (Auto) 3.52 K/uL (1.4-6.5) Lymphocytes # (Auto) 0.70 K/uL (1.2-3.4) Monocytes # (Auto) 0.56 K/uL (0.11-0.59) Eosinophils # (Auto) 0.16 K/uL (0-0.5) Basophils # (Auto) 0.05 K/uL (0-0.2) RDW Standard Deviation 46.7 fL (36.4-46.3) RDW Coefficient of Variation 13.6 % (11.5-14.5) Immature Granulocyte % (Auto) 0.4 % Immature Granulocyte # (Auto) 0.02 K/uL (0.00-0.02) Anion Gap 2.0 mmol/L (3-11) Est Creatinine Clear Calc Drug Dose 73.7 ml/min Estimated GFR () 89.1 Estimated GFR (Non- 76.9 BUN/Creatinine Ratio 30.9 (10-20) Calcium Level 9.0 mg/dl (8.5-10.1) Total Bilirubin 0.3 mg/dl (0.2-1) Direct Bilirubin < 0.1 mg/dl (0-0.2) Aspartate Amino Transf (AST/SGOT) 12 U/L (15-37) Alanine Aminotransferase (ALT/SGPT) 22 U/L (12-78) Alkaline Phosphatase 59 U/L (45-117) Total Protein 6.9 gm/dl (6.4-8.2) Albumin 2.9 gm/dl (3.4-5.0) Lipase 225 U/L (73-393) Urine Color YELLOW Urine Appearance TURBID (CLEAR) Urine pH 6.5 (4.5-7.5) Urine Specific [place] 1.018 (1.000-1.030) Urine Protein 3+ (NEG) Urine Glucose (UA) NEG (NEG) Urine Ketones NEG (NEG) Urine Occult Blood 1+ (NEG) Urine Nitrite NEG (NEG) Urine Bilirubin NEG (NEG) Urine Urobilinogen NEG (NEG) Urine Leukocyte Esterase LARGE (NEG) Urine WBC (Auto) >30 /hpf (0-5) Urine RBC (Auto) 5-10 /hpf (0-4) Urine Hyaline Casts (Auto) 0 /lpf (0-5) Urine Epithelial Cells (Auto) >30 /lpf (0-5) Urine Bacteria (Auto) NEG (NEG) Urine Renal Epithelial Cells 10-20 /lpf (0-5) Urine Pathogenic Casts /lpf (0) Urine Yeast (Auto) (NONE PRSENT) Prothrombin Time 10.2 SECONDS (9.0-12.0) Prothromb Time International Ratio 1.0 (0.9-1.1) Activated Partial Thromboplast Time 23.1 SECONDS (21.0-31.0) Partial Thromboplastin Ratio 0.9 Laboratory results per my review. Medications Administered Medications (Trade) Dose Ordered Sig/Aurelia Route Start Time Stop Time Status Last Admin Dose Admin Ceftriaxone Sodium (Rocephin Inj) 1 gm NOW STAT IV 05/13/17 16:24 05/13/17 16:25 DC 05/13/17 16:33 1 GM Piperacillin Sod/ Tazobactam Sod (Zosyn Iv) 3.375 gm NOW STAT IV 05/13/17 16:55 05/13/17 16:57 DC 05/13/17 17:06 3.375 GM ECG Indication: weakness Rate (beats per minute): 83 Rhythm: sinus rhythm Findings: other (poor baseline, interventricular conduction delay, normal axis) Comparison ECG Date: 10-MAR-2017 Change: no significant change ED Course ED COURSE: Vital signs were reviewed and showed hypertension The patients medical record was reviewed The above diagnostic studies were performed and reviewed. ED treatments and interventions as stated above. 1452: The patient was evaluated in room C12. A complete history and physical examination was performed. 1556: I reevaluated the patient and he is doing okay. 1624: Rocephin Inj 1gm IV. 1655: Zosyn IV 3.375gm IV. 1658: I reviewed the patient's case with Dr. Dev Godinez. She will evaluate the patient for further management. 1703: Upon reevaluation, the patient is doing well.I discussed my findings with the patient and she understands and agrees with the treatment plan. Based on the patients age, coexisting illnesses, exam and lab findings the decision to treat as an inpatient was made. The patient remained stable while under my care. The patient will be evaluated for further management. Medical Decision Differential Diagnosis includes but is not limited to dehydration, stroke, anemia, hypoglycemia, hyponatremia, hypernatremia, urinary tract infection, pneumonia, bronchitis, sepsis, gastroenteritis, additional abdominal pathology, metabolic abnormalities and infections. Patient is a 67-year-old female who presents to ER as she went to stand up last night and could not support her weight on her legs. She denies any tingling or numbness. No new back pain. Able to urinate and move bowels without difficulty. No signs of cauda equina. Patient is neurologically intact. She is currently on 5 L nasal cannula which I favor is chronic for her at rest. Labs are remarkable for a hemoglobin of 9. BMP remarkable for a CO2 of 44 which is fairly persistent with previous. Bilirubin LFTs and lipase were normal. UA supports UTI, favor cause of weakness. Chest x-ray also showed a possible new infiltrate although no upper esterase symptoms. She denied any shortness breath. With her significant pulmonary fibrosis/lung disease, I did elect to cover her with broad-spectrum antibiotics and Pt was admitted to internal medicine on her chronic 5 Ls NC. Medication Reconcilliation Current Medication List: was personally reviewed by me Blood Pressure Screening Patient's blood pressure: Elevated blood pressure Blood pressure disposition: Referred to PCP Consults Time Called: 1654 Consulting Physician: Dr. Dev Godinez Returned Call: [phone] I reviewed the patient's case with Dr. Dev Godinez. She will evaluate the patient for further management. Impression Primary Impression: UTI (urinary tract infection) Additional Impressions: Weakness Pneumonia Scribe Attestation The scribe's documentation has been prepared under my direction and personally reviewed by me in its entirety. I confirm that the note above accurately reflects all work, treatment, procedures, and medical decision making performed by me. Departure Information Dispostion Being Evaluated By Hospitalist Referrals Laney Verdugo D.O. (PCP) Problem Qualifiers Primary Impression: UTI (urinary tract infection) Urinary tract infection type: acute cystitis Hematuria presence: with hematuria Qualified Codes: N30.01 - Acute cystitis with hematuria Additional Impressions: Pneumonia Pneumonia type: due to unspecified organism Laterality: unspecified laterality Lung location: unspecified part of lung Qualified Codes: J18.9 - Pneumonia, unspecified organism
[2017-05-13 15:49] LABS: URINE APPEARANCE TURBID (CLEAR); URINE BILIRUBIN NEG (NEG); URINE COLOR YELLOW; URINE EPITHELIAL CELL AUTO >30 /lpf (0-5); URINE NITRITE NEG (NEG); URINE PH 6.5 (4.5-7.5); URINE SPECIFIC GRAVITY 1.018 (1.000-1.030); UROBILINOGEN NEG (NEG); ZZURINE CULT IF INDIC CATH YES
[2017-05-13 15:50] LABS: ALT/SGPT 22 U/L (12-78); CREATININE 0.79 mg/dl (0.60-1.20)
[2017-05-13 15:51] LABS: ALKALINE PHOSPHATASE 59 U/L (45-117); AST/SGOT 12 U/L (15-37); BLOOD UREA NITROGEN 24 mg/dl (7-18); BUN/CREATININE RATIO 30.9 (10-20); CHLORIDE 94 mmol/L (98-107); GLUCOSE 105 mg/dl (70-99); POTASSIUM 4.6 mmol/L (3.5-5.1); SODIUM 140 mmol/L (136-145)
[2017-05-13 15:53] LABS: CARBON DIOXIDE 44 mmol/L (21-32)
[2017-05-13 16:04] LABS: MANUAL MICROSCOPIC REQUIRED? NO; REVIEW REQ? YES
[2017-05-13 16:10] LABS: PARTIAL THROMBOPLASTIN RATIO 0.9; PROTHROMBIN TIME (PATIENT) 10.2 SECONDS (9.0-12.0)
[2017-05-13] MEDS ORDERED: CEFTRIAXONE SOD INJ 1 GM ADDVIAL IV STA (16:24)
--- NOTE | 2017-05-13 16:34 | DIAGNOSTIC IMAGING REPORT ---
LUMBAR SPINE 2 OR 3 VIEWS HISTORY: 67 years-old Female lower bakc pain acute low back pain without reported trauma. The patient is reportedly unable to ambulate. COMPARISON: CT abdomen and pelvis 02/27/2017 TECHNIQUE: 3 views of the lumbar spine FINDINGS: 5 lumbar-type vertebral segments are present. Bones are moderately demineralized. Mild convex left curvature of the lumbar spine. No acute fracture or subluxation identified. No compression deformity is seen multilevel endplate spurring and facet arthropathy. Severe intervertebral disc space narrowing at L5-S1. Disc space narrowing is also seen at T11-T12 and T12-L1. Moderate degenerative changes of the hips. There is atherosclerosis of the aorta. Moderate stool burden. IMPRESSION: 1. No acute fracture or subluxation. No acute compression deformity. 2. Multilevel endplate spurring and facet arthropathy. Severe intervertebral disc space narrowing at L5-S1. 3. Osteopenia. The above report was generated using voice recognition software. It may contain grammatical, syntax or spelling errors. Electronically signed by: Davian Grady M.D. 05/13/2017 4:33 PM Dictated Date/Time: 05/13/2017 4:29 PM
--- NOTE | 2017-05-13 16:36 | DIAGNOSTIC IMAGING REPORT ---
PELVIS 1 OR 2 VIEW ROUTINE HISTORY: 67 years-old Female weak acute weakness and pelvic pain with decreased ambulation COMPARISON: Lumbar spine radiographs of same day. TECHNIQUE: Single AP view of the pelvis FINDINGS: Bones are mildly demineralized. Moderate degenerative changes of the bilateral hips. No acute fracture or subluxation identified. Degenerative changes are seen about the lower lumbar spine. Soft tissues are unremarkable. Soft tissues are unremarkable. IMPRESSION: Degenerative changes as above without acute fracture or subluxation. The above report was generated using voice recognition software. It may contain grammatical, syntax or spelling errors. Electronically signed by: Davian Grady M.D. 05/13/2017 4:35 PM Dictated Date/Time: 05/13/2017 4:33 PM
--- NOTE | 2017-05-13 16:40 | DIAGNOSTIC IMAGING REPORT ---
CHEST ONE VIEW PORTABLE HISTORY: 67 years-old Female weak acute low back pain with decreased ambulation COMPARISON: Chest radiograph 03/10/2017 and 06/11/2014 TECHNIQUE: Portable upright AP view of the chest FINDINGS: Cardiac silhouette is mildly enlarged. There is atherosclerosis of the aorta. No pneumothorax. There is chronic blunting of the costophrenic angles. Upper lobe predominant mixed interstitial and alveolar opacities with biapical bulla formation redemonstrated these findings appear stable from comparison. There are new opacities of the right perihilar distribution and right lung base. The bones are grossly intact. IMPRESSION: New patchy alveolar opacities of the right perihilar distribution and right lung base suggest atelectasis or pneumonia on a background of chronic upper lobe predominant mixed interstitial and alveolar opacities compatible with chronic interstitial lung disease. The above report was generated using voice recognition software. It may contain grammatical, syntax or spelling errors. Electronically signed by: Davian Grady M.D. 05/13/2017 4:39 PM Dictated Date/Time: 05/13/2017 4:35 PM
[2017-05-13] MEDS ORDERED: PIPERACILLIN/TAZOBACTAM 3.375 GM/100ML D5W IV STA (16:55)
--- NOTE | 2017-05-13 17:13 | History and Physical ---
History & Physical Date & Time of Service: May 13, 2017 at 17:13 Chief Complaint: Unable To Ambulate Primary Care Physician: Lanye Verdugo D.O. History of Present Illness Source: patient this is 67 yo F with advanced interstitial lung disease , Pulmonary HTN , on 5 L 02 at rest and 6-8L with ambulation , recently DX with bladder tumor, s/p excision presented to ED with worsening of weakness, fatigue , frequent fall UA grossly positive pt reports of one episode of chills and fever and nausea yesterday has chronic urinary incontinence , can not tell of increased frequency or dysuria no hematuria noted pt mentions her legs just giving away with attempt to walk -leading her to fall denies of any chest pain or dizzy spell pt has a walker and cane at home , does not use it lives with her daughter -who works most part of the day pt had fall twice 3 days back , has a large bruise on rt under arm does not recall hitting head or losing consciousness Past Medical/Surgical History Medical Problems: (1) Chronic respiratory failure with hypoxia and hypercapnia Status: Chronic (2) Cor pulmonale Status: Chronic (3) DM type 2 (diabetes mellitus, type 2) Status: Chronic (4) Dyslipidemia Status: Chronic (5) HTN (hypertension) Status: Chronic (6) Pulmonary fibrosis Status: Chronic (7) Pulmonary HTN Status: Chronic Surgical Problems: (1) History of tonsillectomy Status: Chronic Family History Cardiac disorder FATHER Social History Smoking Status: Former Smoker Drug Use: none Marital Status: Housing status: lives with family Occupational Status: retired Immunizations History of Influenza Vaccine: Yes Influenza Vaccine Date: Apr 27, 2016 History of Tetanus Vaccine?: Yes Tetanus Immunization Date: May 11, 2014 History of Pneumococcal: Yes Pneumococcal Date: Apr 27, 2016 Multi-Drug Resistant Organisms History of MDRO: Yes Allergies Coded Allergies: Adhesives (Verified Allergy, Unknown, welts, 05/13/17) Levofloxacin (Unverified Allergy, Unknown, 'severe neuropathy', 05/13/17) per [facility] pulm note Home Medications Scheduled Atorvastatin (Atorvastatin Calcium), 10 MG PO QAM Baclofen (Baclofen), 10 MG PO BID Bosentan (Tracleer), 125 MG PO BID Cholecalciferol (Vitamin D3), 1 TAB PO QAM Lisinopril (Lisinopril), 10 MG PO QAM Metformin Hcl (Glucophage), 500 MG PO QAM Multivitamin (Multivitamin), 1 TAB PO DAILY Paroxetine (Paxil), 40 MG PO QPM Prednisone (Prednisone Tab), 40 MG PO DAILY Prednisone Tab (Prednisone), 10 MG PO QAM Sildenafil Citrate (Revatio), 3 TABS PO TID Scheduled PRN Acetylcysteine (Acetylcysteine), INH for Shortness of Breath Albuterol Sulf (Proventil 0.083% 2.5MG/3ML), 2.5 MG INH Q6H PRN for Shortness of Breath Furosemide (Furosemide), 2 TAB PO DAILY PRN for edema Potassium Chloride (Micro-K Ext Rel), 20 MEQ PO DAILY PRN for with Lasix Tramadol HCl (Tramadol HCl), 50 MG PO Q6H PRN for Pain Review of Systems Constitutional: + fever, + chills, + weakness, + fatigue Abdomen: + pain, + nausea Genitourinary - Female: + urinary frequency, + urinary incontinence Neurologic: + weakness, + numbness/tingling, + vertigo Psychiatric: + depression symptoms Endocrine: + fatigue Physical Exam Vital Signs Date Time Temp Pulse Resp B/P (MAP) Pulse Ox O2 Delivery O2 Flow Rate FiO2 05/13/17 16:29 104 23 162/63 100 Nasal Cannula 8.0 05/13/17 15:18 85 05/13/17 15:02 37.1 89 24 178/78 96 Nasal Cannula 5.0 General Appearance: + mild distress Head: normocephalic, atraumatic Eyes: PERRL, EOMI Neck: supple, thyroid normal, no carotid bruits, trachea midline Respiratory/Chest: + decreased breath sounds, + rales, + wheezing Cardiovascular: regular rate, rhythm Abdomen/GI: non tender, soft Extremities/Musculoskelatal: no pedal edema, + pertinent finding (multiple bruise in upper and lower ext ) Neurologic/Psych: alert, oriented x 3 Diagnostics Laboratory Results Results Past 24 Hours Test 05/13/17 15:00 05/13/17 15:30 05/13/17 15:39 Range/Units White Blood Count 5.01 4.8-10.8 K/uL Red Blood Count 3.32 4.2-5.4 M/uL Hemoglobin 9.2 12.0-16.0 g/dL Hematocrit 31.1 37-47 % Mean Corpuscular Volume 93.7 80-100 fL Mean Corpuscular Hemoglobin 27.7 25-34 pg Mean Corpuscular Hemoglobin Concent 29.6 32-36 g/dl Platelet Count 191 130-400 K/uL Mean Platelet Volume 9.8 7.4-10.4 fL Neutrophils (%) (Auto) 70.2 % Lymphocytes (%) (Auto) 14.0 % Monocytes (%) (Auto) 11.2 % Eosinophils (%) (Auto) 3.2 % Basophils (%) (Auto) 1.0 % Neutrophils # (Auto) 3.52 1.4-6.5 K/uL Lymphocytes # (Auto) 0.70 1.2-3.4 K/uL Monocytes # (Auto) 0.56 0.11-0.59 K/uL Eosinophils # (Auto) 0.16 0-0.5 K/uL Basophils # (Auto) 0.05 0-0.2 K/uL RDW Standard Deviation 46.7 36.4-46.3 fL RDW Coefficient of Variation 13.6 11.5-14.5 % Immature Granulocyte % (Auto) 0.4 % Immature Granulocyte # (Auto) 0.02 0.00-0.02 K/uL Sodium Level 140 136-145 mmol/L Potassium Level 4.6 3.5-5.1 mmol/L Chloride Level 94 98-107 mmol/L Carbon Dioxide Level 44 21-32 mmol/L Anion Gap 2.0 3-11 mmol/L Blood Urea Nitrogen 24 7-18 mg/dl Creatinine 0.79 0.60-1.20 mg/dl Est Creatinine Clear Calc Drug Dose 73.7 ml/min Estimated GFR () 89.1 Estimated GFR (Non- 76.9 BUN/Creatinine Ratio 30.9 10-20 Random Glucose 105 70-99 mg/dl Calcium Level 9.0 8.5-10.1 mg/dl Total Bilirubin 0.3 0.2-1 mg/dl Direct Bilirubin < 0.1 0-0.2 mg/dl Aspartate Amino Transf (AST/SGOT) 12 15-37 U/L Alanine Aminotransferase (ALT/SGPT) 22 12-78 U/L Alkaline Phosphatase 59 45-117 U/L Total Protein 6.9 6.4-8.2 gm/dl Albumin 2.9 3.4-5.0 gm/dl Lipase 225 73-393 U/L Urine Color YELLOW Urine Appearance TURBID CLEAR Urine pH 6.5 4.5-7.5 Urine Specific [place] Ari 1.018 1.000-1.030 Urine Protein 3+ NEG Urine Glucose (UA) NEG NEG Urine Ketones NEG NEG Urine Occult Blood 1+ NEG Urine Nitrite NEG NEG Urine Bilirubin NEG NEG Urine Urobilinogen NEG NEG Urine Leukocyte Esterase LARGE NEG Urine WBC (Auto) >30 0-5 /hpf Urine RBC (Auto) 5-10 0-4 /hpf Urine Hyaline Casts (Auto) 0 0-5 /lpf Urine Epithelial Cells (Auto) >30 0-5 /lpf Urine Bacteria (Auto) NEG NEG Urine Renal Epithelial Cells 10-20 0-5 /lpf Urine Pathogenic Casts 0 /lpf Urine Yeast (Auto) NONE PRSENT Prothrombin Time 10.2 9.0-12.0 SECONDS Prothromb Time International Ratio 1.0 0.9-1.1 Activated Partial Thromboplast Time 23.1 21.0-31.0 SECONDS Partial Thromboplastin Ratio 0.9 Microbiology Results 05/13/17 Urine Culture, Received Pending Diagnostic Radiology CHEST XRAY : IMPRESSION: New patchy alveolar opacities of the right perihilar distribution and right lung base suggest atelectasis or pneumonia on a background of chronic upper lobe predominant mixed interstitial and alveolar opacities compatible with chronic interstitial lung disease. PELVIS 1 OR 2 VIEW ROUTINE HISTORY: 67 years-old Female weak acute weakness and pelvic pain with decreased ambulation COMPARISON: Lumbar spine radiographs of same day. TECHNIQUE: Single AP view of the pelvis FINDINGS: Bones are mildly demineralized. Moderate degenerative changes of the bilateral hips. No acute fracture or subluxation identified. Degenerative changes are seen about the lower lumbar spine. Soft tissues are unremarkable. Soft tissues are unremarkable. IMPRESSION: Degenerative changes as above without acute fracture or subluxation. Impression Assessment and Plan AMBULATORY DYSFUNCTION /FALL /WEAKNESS had generalized weakness , fatigue fall at home possible due to UTI , dehydration started tx for UTI PT/OT eval fall precaution UTI : UA + positive urine culture ordered cont empiric abx with Rocephin PULMONARY FIBROSIS, CHRONIC HYPERCAPNIC AND HYPOXIC RESPIRATORY FAILURE - at baseline uses 5l at rest with nasal canula /on activity requires 8-10 L - advanced interstitial lung disease - continue prednisone, Revatio, and Tracleer - Pulmonology consulted, pt is known to service form prior admission DM TYPE 2 - hgb a1c 5.6 12/2016 -repeat hb A1 C ordered - hold Metformin and utilize SSI while hospitalized HTN - BP controlled, continue Lisinopril renal function remains stable DYSLIPIDEMIA - continue statin DVT PROPHYLAXIS - moderate risk sub q heparin CODE STATUS : DNR /DNI D/W PT DISPOSITION ; may need rehab for frequent falls/ambulatory dysfunction PT/OT eval requested social service consulted for discharge planning medicine follow up with Dr Dr Orantes Level of Care Med/Surg Resuscitation Status DO NOT RESUSCITATE VTE Prophylaxis VTE Risk Assessment Done? Y/N: Yes Risk Level: Moderate Given or contraindicated: Unfractionated heparin SQ Additional Copies To Laney Verdugo D.O.
[2017-05-13] MEDS ORDERED: POLYETHYLENE (MIRALAX) 17 GM PACK PO PRN (17:15)
[2017-05-13] MEDS ORDERED: ALUMINUM/MAGNESIUM/SIMETH (MAALOX MAX) 30 ML UDC PO PRN (17:15)
[2017-05-13] MEDS ORDERED: ZOLPIDEM TARTRATE 5 MG TAB PO PRN (17:15)
[2017-05-13] MEDS ORDERED: ACETAMINOPHEN 325 MG TAB PO PRN (17:15)
[2017-05-13] MEDS ORDERED: ONDANSETRON INJ 2 MG/ML 2 ML VIAL IV PRN (17:15)
[2017-05-13] MEDS ORDERED: MAGNESIUM HYDROXIDE SUSP 30 ML UDC PO PRN (17:15)
[2017-05-13] MEDS ORDERED: FUROSEMIDE 20 MG TAB PO PRN (17:30)
[2017-05-13] MEDS ORDERED: POTASSIUM CHLORIDE 10 MEQ TABCR PO PRN (17:30)
[2017-05-13] MEDS ORDERED: ALBUTEROL 0.083% NEBU SOLN 3 ML VIAL INH PRN (17:30)
[2017-05-13 19:34] VITALS: BP 147/67; PULSE 90; TEMP 35.9; O2SAT 100
[2017-05-13] MEDS ORDERED: LEVALBUTEROL/IPRATROPIUM NEB INH SCH (20:00)
[2017-05-13] MEDS: IPRATROPIUM BROMIDE NEB SOLN 0.02% 2.5 ML VIAL INH SCH (20:22)
[2017-05-13] MEDS: LEVALBUTEROL 1.25MG/0.5ML NEB INH SCH (20:22)
[2017-05-13 20:25] VITALS: PULSE 90; O2SAT 97
[2017-05-13] MEDS ORDERED: GLUCAGON FOR INJ 1 MG VIAL SQ PRN (20:30)
[2017-05-13] MEDS ORDERED: GLUCOSE 40% GEL 15 GM TUBE PO PRN (20:30)
[2017-05-13] MEDS ORDERED: DEXTROSE 50% 50 ML SYR IV PRN (20:30)
[2017-05-13] MEDS ORDERED: GLUCOSE 10 TABS/TUBE PO PRN (20:30)
[2017-05-13] MEDS: HEPARIN SOD 5000 UNIT/0.5 ML CARP SQ SCH (21:00)
[2017-05-13] MEDS: INSULIN ASPART 100 UNITS/ML 3 ML PEN SC SCH (21:00)
[2017-05-13] MEDS: BACLOFEN 10 MG TAB PO SCH (21:02)
[2017-05-13] MEDS: SILDENAFIL CITRATE 20 MG TAB PO SCH (21:17)
[2017-05-13] MEDS: PAROXETINE 20 MG TAB PO SCH (21:18)
[2017-05-13] MEDS: TRAMADOL HCL 50 MG TAB PO PRN (21:30)
[2017-05-13 22:10] VITALS: BP 143/72; PULSE 96; TEMP 36.7; O2SAT 98; Ht 157.5 cm; Wt 93.4 kg
[2017-05-14] VITALS (8 sets, daily range): BP systolic 117–149; BP diastolic 67–78; PULSE 79–89; TEMP 36.8–37.1; O2SAT 97–100
[2017-05-14] MEDS: TRAMADOL HCL 50 MG TAB PO PRN ×3 (06:28→20:50)
[2017-05-14] MEDS: IPRATROPIUM BROMIDE NEB SOLN 0.02% 2.5 ML VIAL INH SCH ×4 (07:04→19:14)
[2017-05-14] MEDS: LEVALBUTEROL 1.25MG/0.5ML NEB INH SCH ×4 (07:04→19:15)
[2017-05-14 07:51] LABS: BUN/CREATININE RATIO 30.4 (10-20); CALCIUM 9.2 mg/dl (8.5-10.1); CREATININE 0.57 mg/dl (0.60-1.20); POTASSIUM 4.4 mmol/L (3.5-5.1)
[2017-05-14 07:52] LABS: HEMATOCRIT 30.5 % (37-47); MEAN CELL VOLUME 92.4 fL (80-100); MEAN CORPUSCULAR HEMOGLOBIN 27.3 pg (25-34); MEAN CORPUSCULAR HGB CONC 29.5 g/dl (32-36); MEAN PLATELET VOLUME 9.7 fL (7.4-10.4); PLATELET COUNT 160 K/uL (130-400)
[2017-05-14] MEDS: ATORVASTATIN 10 MG TAB PO SCH (08:18)
[2017-05-14] MEDS: MULTIVITAMIN TAB PO SCH (08:19)
[2017-05-14] MEDS: BOSENTAN PO SCH ×2 (08:20→20:10)
[2017-05-14] MEDS: CHOLECALCIFEROL 1000 INTER.UNIT TAB PO SCH (08:22)
[2017-05-14] MEDS: SILDENAFIL CITRATE 20 MG TAB PO SCH ×3 (08:22→20:08)
[2017-05-14] MEDS: LISINOPRIL 10 MG TAB PO SCH (08:22)
[2017-05-14] MEDS: HEPARIN SOD 5000 UNIT/0.5 ML CARP SQ SCH ×2 (08:23→20:09)
[2017-05-14] MEDS: INSULIN ASPART 100 UNITS/ML 3 ML PEN SC SCH ×4 (09:35→20:48)
[2017-05-14] MEDS: BACLOFEN 10 MG TAB PO SCH ×2 (09:46→20:10)
--- NOTE | 2017-05-14 11:22 | PULMONARY CONSULTATION ---
DATE OF CONSULTATION: 05/14/2017 TIME: 10:00 a.m. REPORT OF CONSULTATION: The patient was seen in room 406. She is a 67-year-old female who came to the Emergency Room yesterday because of recurring falls. Apparently, she had fallen in the last couple of days. She states that her legs would get very weak and just give way. She was not able to get herself up. She denies any loss of consciousness. She denies tripping on anything. The patient has a history of pulmonary fibrosis dating back to 2002. She did undergo a lung biopsy in [place]. She was not a good historian. She could not tell me what if anything she was treated with. I did review some outpatient records from Dr. Verdugo's office. She was ultimately treated a few years ago with pirfenidone, but she had a lot of side effects and stopped it. She has markedly limited in her ability to exert herself. She is hypoxic even at rest. The patient describes having 2 separate oxygen systems and she will use them both. She does have to get up steps, which she will do 1 step at a time. She then switches oxygen systems after she gets up to the 1st level. She usually is in the basement. The patient apparently lives with her daughter. She has very little cough. She states that the neb treatments tend to precipitate the cough, but other than that, she does not cough much. She is not complaining of chest pains. She denies having any chills, fevers or sweats. Her history is not consistent; however, with some of the things I am seeing from the Emergency Room chart. She told me she was not nauseated, but yet she felt like she would vomit. She did not vomit. She just belched several times. The patient does complain of urinary incontinence. She was diagnosed with a bladder tumor recently. She had some type of procedure that probably was done through cystoscopy. It does appear that she had this procedure done in ambulatory surgery on March 08. The procedure was cystoscopy with transurethral resection of a bladder tumor. PAST SURGICAL HISTORY: 1. Tonsillectomy. 2. Lung biopsy approximately 2002. 3. Bladder tumor removal. PAST MEDICAL HISTORY: 1. Pulmonary fibrosis. 2. Chronic respiratory failure. 3. Cor pulmonale. 4. Pulmonary hypertension. 5. Diabetes. 6. Hyperlipidemia. SOCIAL HISTORY: Tobacco. The patient told me she quit smoking at age 29. That would mean approximately 1978. However, Dr. Verdugo's notes from the office indicates she quit in 2008. Thus, there is a disparity there. Alcohol use is described as rare. ALLERGIES: THE PATIENT HAD NUMBNESS AND PARESTHESIAS SECONDARY TO LEVOFLOXACIN. FAMILY HISTORY: Mother of brain cancer. Father , congestive heart failure. MEDICATIONS: At home, 1. Acetylcysteine by nebulizer. 2. Albuterol p.r.n. by nebulizer. 3. Atorvastatin 10 mg daily. 4. Baclofen 10 mg b.i.d., 5. Bosentan 125 mg b.i.d. 6. Vitamin D3. 7. Furosemide 20 mg 2 tabs daily p.r.n. 8. Lisinopril 10 mg daily. 9. Metformin 500 mg daily. 10. Paroxetine 40 mg daily. 11. Potassium 20 mEq p.r.n. 12. Prednisone 10 mg daily. 13. Sildenafil 20 mg t.i.d. 14. Tramadol 50 mg q. 6 hours p.r.n. REVIEW OF SYSTEMS: This was somewhat difficult to obtain as the patient is not a good historian. She admits to having some pain along the left shoulder area, apparently related to one of her falls. She denies dizziness or lightheadedness. Energy level is poor. She denies to me having chills or fevers at present. She complains of pain in her hands and pain in her back. The remainder is otherwise negative. Ten systems were reviewed. PHYSICAL EXAMINATION: GENERAL: The patient is a 67-year-old female who was cooperative and alert. She was oriented, although at times, she would get some strange or unusual answers to questions. VITAL SIGNS: Maximum temperature since admission is 37.1. The heart rate was 83 per minute. Blood pressure was 119/69. Respiratory rate was 20 breaths per minute. HEENT: Eye exam suggests cataract formation. She admits to decreased visual acuity. There was a nasal cannula in place. She also was taking an OxyMask and putting it off and on intermittently. Mouth exam showed dentures on top and absence of teeth on the bottom. NECK: Palpation of the neck reveals no lymph nodes. CHEST: Shows a dorsal kyphosis. Auscultation revealed rales throughout both lungs posteriorly bilaterally. Oxygen saturation was 98% with nasal cannula 5 liters and with the OxyMask. After a few minutes of taking the OxyMask off on the nasal cannula alone, she was 92%. ABDOMEN: Obese. Bowel sounds were normal. There was no tenderness to palpation or masses. Her abdomen did seem mildly distended, but I think it is just her usual shape. EXTREMITIES: Revealed +2 edema on the right and +1 on the left. Chest x-ray shows diffuse interstitial changes throughout. There is some increase of prominence of markings in the right lower lung field. It is difficult to determine if this is a new infiltrate or from may just be progression of her underlying disease. Lumbar spine x-ray showed no acute fracture. There was disk narrowing at L5-S1. Osteopenia was noted. Pelvic x-ray was negative for fracture. LABORATORY DATA: White count is 5.2. Hemoglobin is 9. Platelets are 160,000. Coags were normal. Urinalysis showed 3+ protein, 1+ blood, and greater than 30 WBCs. Urine bacteria negative. Admission electrolytes showed sodium 140, potassium 4.6, chloride 94, and bicarbonate 44. The BUN was 24 with a creatinine of 0.79. Today's labs showed a carbon dioxide level down to 38. Blood sugar this morning was 110. Calcium was 9.2. Liver functions were normal. Albumin was decreased to 2.9. EKG showed somatic tremor. There was a normal sinus rhythm with a rate of 83. There is RSR prime seen in V1 and V2. IMPRESSIONS: 1. Recurring falls. 2. Acute on chronic respiratory failure with hypoxia and hypercarbia. 3. Interstitial lung disease with pulmonary fibrosis. 4. Pulmonary hypertension. 5. Bronchiectasis. 6. Rule out urinary tract infection. COMMENTS AND RECOMMENDATIONS: The patient seems reasonably stable. She obviously is oxygen dependent. She seems to have a lot of anxiety regarding her breathing, which would not be unexpected. She was constantly taking the OxyMask on and off, complaining of shortness of breath, although she did not look any differently. She was started on ceftriaxone and I have no objection to that. Her prednisone has been increased somewhat up to 30 mg daily. Usually, she takes 10. We need to determine if there is an underlying reason why she is so weak other than her severe hypoxia and pulmonary disease with lack of reserve. If she has a urinary infection that may be the basis for this. Dr. Alfred will be seeing the patient as of tomorrow. MARTHA
[2017-05-14] MEDS: CEFTRIAXONE SOD INJ 1 GM in DEXTROSE 5% ADD-VANTAGE 50ML 50 ML IV SCH (16:16)
[2017-05-14] MEDS: PAROXETINE 20 MG TAB PO SCH (20:08)
[2017-05-15] VITALS (8 sets, daily range): BP systolic 120–149; BP diastolic 66–74; PULSE 82–95; TEMP 36.8–37.1; O2SAT 94–100
[2017-05-15 05:41] LABS: HEMATOCRIT 29.8 % (37-47); MEAN CORPUSCULAR HEMOGLOBIN 27.8 pg (25-34); MEAN CORPUSCULAR HGB CONC 30.2 g/dl (32-36); MEAN PLATELET VOLUME 8.6 fL (7.4-10.4); PLATELET COUNT 145 K/uL (130-400); RED BLOOD COUNT 3.24 M/uL (4.2-5.4)
[2017-05-15] MEDS: IPRATROPIUM BROMIDE NEB SOLN 0.02% 2.5 ML VIAL INH SCH ×4 (07:12→19:04)
[2017-05-15] MEDS: LEVALBUTEROL 1.25MG/0.5ML NEB INH SCH ×4 (07:12→19:04)
[2017-05-15 07:14] LABS: BUN/CREATININE RATIO 21.4 (10-20); CALCIUM 8.9 mg/dl (8.5-10.1); CREATININE 0.85 mg/dl (0.60-1.20); POTASSIUM 4.4 mmol/L (3.5-5.1)
[2017-05-15] MEDS: CHOLECALCIFEROL 1000 INTER.UNIT TAB PO SCH (09:30)
[2017-05-15] MEDS: ATORVASTATIN 10 MG TAB PO SCH (09:31)
[2017-05-15] MEDS: MULTIVITAMIN TAB PO SCH (09:31)
[2017-05-15] MEDS: LISINOPRIL 10 MG TAB PO SCH (09:31)
[2017-05-15] MEDS: BOSENTAN PO SCH ×2 (09:32→21:09)
[2017-05-15] MEDS: SILDENAFIL CITRATE 20 MG TAB PO SCH ×3 (09:33→21:09)
[2017-05-15] MEDS: HEPARIN SOD 5000 UNIT/0.5 ML CARP SQ SCH ×2 (09:35→21:00)
[2017-05-15] MEDS: BACLOFEN 10 MG TAB PO SCH ×2 (09:35→21:10)
[2017-05-15] MEDS: INSULIN ASPART 100 UNITS/ML 3 ML PEN SC SCH ×4 (10:30→21:02)
--- NOTE | 2017-05-15 11:16 | Progress Note ---
Medicine Progress Note Date & Time of Visit: May 14, 2017 at 11:15. Late entry Subjective Late entry Pt was seen and examined Sitting in chair with no distress with daughter at present Pt said that that she feels much better today denies any fever, palpitation, dizziness and chest pain Objective Last 8 Hrs Date Time Temp Pulse Resp B/P (MAP) Pulse Ox O2 Delivery O2 Flow Rate FiO2 05/15/17 11:12 36.8 88 20 121/68 (85) 94 Nasal Cannula 5.0 05/15/17 07:31 36.9 87 18 144/74 (97) 100 Oxymask 6.0 05/15/17 04:00 36.8 82 18 149/74 (99) 100 6.0 Physical Exam: General- No acute distress Head- atraumatic Eyes- PERRL, EOMI ENT- oropharynx clear Neck- supple, no JVD Lungs- coarse BS Heart- regular rhythm; no murmur Abdomen- normal bowel sounds, soft Extremities- no calf tenderness Neuro- alert, oriented x 3; PERRL, EOMI Skin- warm & dry Laboratory Results: Last 24 Hours Test 05/14/17 12:01 05/14/17 17:27 05/14/17 20:46 05/15/17 05:27 Bedside Glucose 126 mg/dl 115 mg/dl 170 mg/dl White Blood Count 5.40 K/uL Red Blood Count 3.24 M/uL Hemoglobin 9.0 g/dL Hematocrit 29.8 % Mean Corpuscular Volume 92.0 fL Mean Corpuscular Hemoglobin 27.8 pg Mean Corpuscular Hemoglobin Concent 30.2 g/dl RDW Standard Deviation 45.8 fL RDW Coefficient of Variation 13.7 % Platelet Count 145 K/uL Mean Platelet Volume 8.6 fL Sodium Level 137 mmol/L Potassium Level 4.4 mmol/L Chloride Level 93 mmol/L Carbon Dioxide Level 42 mmol/L Anion Gap 4.0 mmol/L Blood Urea Nitrogen 18 mg/dl Creatinine 0.85 mg/dl Est Creatinine Clear Calc Drug Dose 67.5 ml/min Estimated GFR () 81.6 Estimated GFR (Non- 70.4 BUN/Creatinine Ratio 21.4 Random Glucose 121 mg/dl Calcium Level 8.9 mg/dl Test 05/15/17 07:43 Bedside Glucose 136 mg/dl Assessment & Plan AMBULATORY DYSFUNCTION /FALL /WEAKNESS fall at home possible due to UTI vs dehydration PT/OT eval fall precaution consider inpatient rehab UTI had dysuria on admission UA + positive preliminary urine cx showed no growth cont empiric abx with Rocephin Symptom resolved PULMONARY FIBROSIS, CHRONIC HYPERCAPNIC AND HYPOXIC RESPIRATORY FAILURE at baseline uses 5l at rest with nasal canula /on activity requires 8-10 L advanced interstitial lung disease continue prednisone, Revatio, and Tracleer Pulmonology on board DM TYPE 2 recent Hba1C 6 on 05/14/17 Hold Metformin On Insulin coverage HTN BP controlled Continue Lisinopril DYSLIPIDEMIA continue statin DVT PROPHYLAXIS moderate risk sub q heparin CODE STATUS DNR /DNI DISPOSITION ; may need rehab for frequent falls/ambulatory dysfunction PT/OT eval requested Current Inpatient Medications: Current Inpatient Medications Medications (Trade) Dose Ordered Sig/Aurelia Route Start Time Stop Time Status Last Admin Dose Admin Acetaminophen (Tylenol Tab) 650 mg Q4H PRN PO 05/13/17 17:15 06/12/17 17:14 Al Hydrox/Mg Hydrox/Simethicone (Maalox Max Susp) 15 ml Q4H PRN PO 05/13/17 17:15 06/12/17 17:14 Magnesium Hydroxide (Milk Of Magnesia Susp) 30 ml Q6H PRN PO 05/13/17 17:15 06/12/17 17:14 Polyethylene (Miralax Powder Packet) 17 gm DAILY PRN PO 05/13/17 17:15 06/12/17 17:14 Zolpidem Tartrate (Ambien Tab) 5 mg HSZ PRN PO 05/13/17 17:15 06/12/17 17:14 Ondansetron HCl (Zofran Inj) 4 mg Q6H PRN IV 05/13/17 17:15 06/12/17 17:14 Heparin Sodium (Porcine) (Heparin Sq 5000 Unit/0.5ml) 5,000 unit Q12 SQ 05/13/17 21:00 06/12/17 20:59 Albuterol Sulfate (Ventolin 0.083% 2.5MG/3ML Neb) 2.5 mg Q6H PRN INH 05/13/17 17:30 06/12/17 17:29 Atorvastatin Calcium (Lipitor Tab) 10 mg QAM PO 05/14/17 08:00 06/13/17 08:59 05/15/17 09:31 10 MG Baclofen (Lioresal Tab) 10 mg BID PO 05/13/17 20:00 06/12/17 19:59 05/14/17 20:10 10 MG Cholecalciferol (Vitamin D Tab) 1,000 inter.unit QAM PO 05/14/17 08:00 06/13/17 08:59 05/15/17 09:30 1,000 INTER.UNIT Furosemide (Lasix Tab) 40 mg DAILY PRN PO 05/13/17 17:30 06/12/17 17:29 Lisinopril (Zestril Tab) 10 mg QAM PO 05/14/17 08:00 06/13/17 08:59 05/15/17 09:31 10 MG Multivitamins (Multivitamin Tab) 1 tab DAILY PO 05/14/17 08:00 06/13/17 08:59 05/15/17 09:31 1 TAB Paroxetine HCl (pAXil TAB) 40 mg QPM PO 05/13/17 21:00 06/12/17 20:59 05/14/17 20:08 40 MG Potassium Chloride (Klor-Con M10) 20 meq DAILY PRN PO 05/13/17 17:30 06/12/17 17:29 Prednisone (PredniSONE TAB) 30 mg Taper QAM PO 05/14/17 08:00 05/18/17 07:59 05/15/17 09:30 30 MG Sildenafil Citrate (Revatio Tab) 60 mg TID PO 05/13/17 21:00 06/12/17 20:59 05/15/17 09:33 60 MG Tramadol HCl (Ultram Tab) 50 mg Q6H PRN PO 05/13/17 17:30 06/12/17 17:29 05/14/17 20:50 50 MG Ceftriaxone Sodium 1 gm/ Dextrose 50 ml @ 100 mls/hr Q24H IV 05/14/17 16:00 05/19/17 15:59 05/14/17 16:16 100 MLS/HR Ipratropium George (Atrovent 0.02% 0.5MG/2.5ML Neb) 0.5 mg Q4HWA INH 05/13/17 20:00 06/12/17 19:59 05/14/17 07:04 0.5 MG Levalbuterol (Xopenex 1.25MG/ 0.5ML Neb) 1.25 mg Q4HWA INH 05/13/17 20:00 06/12/17 19:59 05/14/17 07:04 1.25 MG Insulin Aspart (novoLOG ASPART) SLIDING SCALE If C... ACHS SC 05/13/17 21:00 06/12/17 20:59 05/15/17 10:30 3 UNITS Glucose (Glucose 40% Gel) 15-30 GRAMS 15 GRAMS... UD PRN PO 05/13/17 20:30 06/12/17 20:29 Glucose (Glucose Chew Tab) 4-8 Tablets 4 Tabl... UD PRN PO 05/13/17 20:30 06/12/17 20:29 Dextrose (Dextrose 50% 50ML Syringe) 25-50ML OF 50% DW IV FOR... UD PRN IV 05/13/17 20:30 06/12/17 20:29 Glucagon (Glucagon Inj) 1 mg UD PRN SQ 05/13/17 20:30 06/12/17 20:29 Non-Formulary Medication (Non-Formulary Patient'S Own Med) 1 ea BID PO 05/14/17 08:00 06/13/17 07:59 05/15/17 09:32 1 EA
[2017-05-15] MEDS: CEFTRIAXONE SOD INJ 1 GM in DEXTROSE 5% ADD-VANTAGE 50ML 50 ML IV SCH (16:18)
[2017-05-15] MEDS: PAROXETINE 20 MG TAB PO SCH (21:10)
--- NOTE | 2017-05-15 21:55 | Progress Note ---
Medicine Progress Note Date & Time of Visit: May 15, 2017 at 18:50. Subjective Pt was seen and examined Sitting in chair with no distress Pt said that her breathing slightly better today denies any chest pain, palpitation, dizziness Objective Last 8 Hrs Date Time Temp Pulse Resp B/P (MAP) Pulse Ox O2 Delivery O2 Flow Rate FiO2 05/15/17 19:30 37.1 87 18 120/66 (84) 97 Nasal Cannula 5.0 05/15/17 16:00 96 Nasal Cannula 5.0 05/15/17 15:35 95 16 96 Nasal Cannula 5.0 05/15/17 15:03 36.9 92 18 122/71 (88) 100 Nasal Cannula 5.0 Physical Exam: General- No acute distress Head- atraumatic Eyes- PERRL, EOMI ENT- oropharynx clear Neck- supple, no JVD Lungs- coarse BS Heart- regular rhythm; no murmur Abdomen- normal bowel sounds, soft Extremities- no calf tenderness Neuro- alert, oriented x 3; PERRL, EOMI Skin- warm & dry Laboratory Results: Last 24 Hours Test 05/15/17 05:27 05/15/17 07:43 05/15/17 11:37 05/15/17 16:46 White Blood Count 5.40 K/uL Red Blood Count 3.24 M/uL Hemoglobin 9.0 g/dL Hematocrit 29.8 % Mean Corpuscular Volume 92.0 fL Mean Corpuscular Hemoglobin 27.8 pg Mean Corpuscular Hemoglobin Concent 30.2 g/dl RDW Standard Deviation 45.8 fL RDW Coefficient of Variation 13.7 % Platelet Count 145 K/uL Mean Platelet Volume 8.6 fL Sodium Level 137 mmol/L Potassium Level 4.4 mmol/L Chloride Level 93 mmol/L Carbon Dioxide Level 42 mmol/L Anion Gap 4.0 mmol/L Blood Urea Nitrogen 18 mg/dl Creatinine 0.85 mg/dl Est Creatinine Clear Calc Drug Dose 67.5 ml/min Estimated GFR () 81.6 Estimated GFR (Non- 70.4 BUN/Creatinine Ratio 21.4 Random Glucose 121 mg/dl Calcium Level 8.9 mg/dl Bedside Glucose 136 mg/dl 195 mg/dl 129 mg/dl Test 05/15/17 20:20 Bedside Glucose 227 mg/dl Assessment & Plan AMBULATORY DYSFUNCTION /FALL /WEAKNESS fall at home possible due to UTI vs dehydration PT/OT eval fall precaution waiting for placement to rehab UTI had dysuria on admission UA + positive final urine cx grew Gardnerella- like Bacilli cont empiric abx with Rocephin for 4 to 5 days Symptom resolved PULMONARY FIBROSIS, CHRONIC HYPERCAPNIC AND HYPOXIC RESPIRATORY FAILURE at baseline uses 5L at rest with nasal canula /on activity requires 8-10 L advanced interstitial lung disease continue prednisone, Revatio, and Tracleer Pulmonology on board DM TYPE 2 recent Hba1C 6 on 05/14/17 Hold Metformin On Insulin coverage HTN BP controlled Continue Lisinopril DYSLIPIDEMIA continue statin DVT PROPHYLAXIS moderate risk sub q heparin CODE STATUS DNR /DNI DISPOSITION ; Waiting for placement to rehab Continue PT/OT Current Inpatient Medications: Current Inpatient Medications Medications (Trade) Dose Ordered Sig/Aurelia Route Start Time Stop Time Status Last Admin Dose Admin Acetaminophen (Tylenol Tab) 650 mg Q4H PRN PO 05/13/17 17:15 06/12/17 17:14 Al Hydrox/Mg Hydrox/Simethicone (Maalox Max Susp) 15 ml Q4H PRN PO 05/13/17 17:15 06/12/17 17:14 Magnesium Hydroxide (Milk Of Magnesia Susp) 30 ml Q6H PRN PO 05/13/17 17:15 06/12/17 17:14 Polyethylene (Miralax Powder Packet) 17 gm DAILY PRN PO 05/13/17 17:15 06/12/17 17:14 Zolpidem Tartrate (Ambien Tab) 5 mg HSZ PRN PO 05/13/17 17:15 06/12/17 17:14 05/15/17 21:08 5 MG Ondansetron HCl (Zofran Inj) 4 mg Q6H PRN IV 05/13/17 17:15 06/12/17 17:14 Heparin Sodium (Porcine) (Heparin Sq 5000 Unit/0.5ml) 5,000 unit Q12 SQ 05/13/17 21:00 06/12/17 20:59 Albuterol Sulfate (Ventolin 0.083% 2.5MG/3ML Neb) 2.5 mg Q6H PRN INH 05/13/17 17:30 06/12/17 17:29 Atorvastatin Calcium (Lipitor Tab) 10 mg QAM PO 05/14/17 08:00 06/13/17 08:59 05/15/17 09:31 10 MG Baclofen (Lioresal Tab) 10 mg BID PO 05/13/17 20:00 06/12/17 19:59 05/15/17 21:10 10 MG Cholecalciferol (Vitamin D Tab) 1,000 inter.unit QAM PO 05/14/17 08:00 06/13/17 08:59 05/15/17 09:30 1,000 INTER.UNIT Furosemide (Lasix Tab) 40 mg DAILY PRN PO 05/13/17 17:30 06/12/17 17:29 Lisinopril (Zestril Tab) 10 mg QAM PO 05/14/17 08:00 06/13/17 08:59 05/15/17 09:31 10 MG Multivitamins (Multivitamin Tab) 1 tab DAILY PO 05/14/17 08:00 06/13/17 08:59 05/15/17 09:31 1 TAB Paroxetine HCl (pAXil TAB) 40 mg QPM PO 05/13/17 21:00 06/12/17 20:59 05/15/17 21:10 40 MG Potassium Chloride (Klor-Con M10) 20 meq DAILY PRN PO 05/13/17 17:30 06/12/17 17:29 Prednisone (PredniSONE TAB) 30 mg Taper QAM PO 05/14/17 08:00 05/18/17 07:59 05/15/17 09:30 30 MG Sildenafil Citrate (Revatio Tab) 60 mg TID PO 05/13/17 21:00 06/12/17 20:59 05/15/17 21:09 60 MG Tramadol HCl (Ultram Tab) 50 mg Q6H PRN PO 05/13/17 17:30 06/12/17 17:29 05/14/17 20:50 50 MG Ceftriaxone Sodium 1 gm/ Dextrose 50 ml @ 100 mls/hr Q24H IV 05/14/17 16:00 05/19/17 15:59 05/15/17 16:18 100 MLS/HR Ipratropium [place] (Atrovent 0.02% 0.5MG/2.5ML Neb) 0.5 mg Q4HWA INH 05/13/17 20:00 06/12/17 19:59 05/15/17 15:33 0.5 MG Levalbuterol (Xopenex 1.25MG/ 0.5ML Neb) 1.25 mg Q4HWA INH 05/13/17 20:00 06/12/17 19:59 05/15/17 15:33 1.25 MG Insulin Aspart (novoLOG ASPART) SLIDING SCALE If C... ACHS SC 05/13/17 21:00 06/12/17 20:59 05/15/17 21:02 3 UNITS Glucose (Glucose 40% Gel) 15-30 GRAMS 15 GRAMS... UD PRN PO 05/13/17 20:30 06/12/17 20:29 Glucose (Glucose Chew Tab) 4-8 Tablets 4 Tabl... UD PRN PO 05/13/17 20:30 06/12/17 20:29 Dextrose (Dextrose 50% 50ML Syringe) 25-50ML OF 50% DW IV FOR... UD PRN IV 05/13/17 20:30 06/12/17 20:29 Glucagon (Glucagon Inj) 1 mg UD PRN SQ 05/13/17 20:30 06/12/17 20:29 Non-Formulary Medication (Non-Formulary Patient'S Own Med) 1 ea BID PO 05/14/17 08:00 06/13/17 07:59 05/15/17 21:09 1 EA
[2017-05-16] VITALS (8 sets, daily range): BP systolic 113–128; BP diastolic 64–73; PULSE 70–85; TEMP 36.5–36.8; O2SAT 94–99
[2017-05-16 05:50] LABS: HEMATOCRIT 30.9 % (37-47); MEAN CORPUSCULAR HGB CONC 30.4 g/dl (32-36); MEAN PLATELET VOLUME 8.9 fL (7.4-10.4); PLATELET COUNT 152 K/uL (130-400); RED BLOOD COUNT 3.36 M/uL (4.2-5.4); WHITE BLOOD COUNT 6.42 K/uL (4.8-10.8)
[2017-05-16 06:34] LABS: BUN/CREATININE RATIO 26.5 (10-20); CALCIUM 8.9 mg/dl (8.5-10.1); CREATININE 0.76 mg/dl (0.60-1.20); POTASSIUM 4.4 mmol/L (3.5-5.1)
[2017-05-16] MEDS: BOSENTAN PO SCH ×2 (07:00→07:54)
[2017-05-16] MEDS: LEVALBUTEROL 1.25MG/0.5ML NEB INH SCH ×2 (07:32→11:49)
[2017-05-16] MEDS: IPRATROPIUM BROMIDE NEB SOLN 0.02% 2.5 ML VIAL INH SCH ×2 (07:32→11:49)
[2017-05-16] MEDS: SILDENAFIL CITRATE 20 MG TAB PO SCH ×2 (07:53→12:48)
[2017-05-16] MEDS: BACLOFEN 10 MG TAB PO SCH (07:53)
[2017-05-16] MEDS: MULTIVITAMIN TAB PO SCH (07:54)
[2017-05-16] MEDS: CHOLECALCIFEROL 1000 INTER.UNIT TAB PO SCH (07:54)
[2017-05-16] MEDS: HEPARIN SOD 5000 UNIT/0.5 ML CARP SQ SCH (07:54)
[2017-05-16] MEDS: ATORVASTATIN 10 MG TAB PO SCH (07:54)
[2017-05-16] MEDS: TRAMADOL HCL 50 MG TAB PO PRN (08:01)
[2017-05-16] MEDS: LISINOPRIL 10 MG TAB PO SCH (08:33)
[2017-05-16] MEDS: INSULIN ASPART 100 UNITS/ML 3 ML PEN SC SCH ×2 (08:41→12:46)
[2017-05-16] MEDS ORDERED: CEFUROXIME AXETIL 500 MG TAB PO ONE (11:54)
--- NOTE | 2017-05-16 11:56 | Progress Note ---
Medicine Progress Note Date & Time of Visit: May 16, 2017 at 11:51. Subjective Pt was seen and examined Sitting in chair with no distress Pt said that she feels much better she said that she is almost back to her baseline denies any chest pain palpitation, dizziness Objective Last 8 Hrs Date Time Temp Pulse Resp B/P (MAP) Pulse Ox O2 Delivery O2 Flow Rate FiO2 05/16/17 11:49 72 15 99 Nasal Cannula 4.0 05/16/17 11:43 36.8 76 18 128/64 (85) 98 Nasal Cannula 4.0 05/16/17 08:00 97 Nasal Cannula 4.0 05/16/17 07:35 36.5 85 20 122/73 (89) 97 Nasal Cannula 4.0 05/16/17 07:33 84 16 99 Nasal Cannula 4.0 05/16/17 04:54 36.6 77 20 123/67 (85) 97 4.0 Physical Exam: General- No acute distress Head- atraumatic Eyes- PERRL, EOMI ENT- oropharynx clear Neck- supple, no JVD Lungs- No wheezing, poor air entry Heart- regular rhythm; no murmur Abdomen- normal bowel sounds, soft Extremities- no calf tenderness Neuro- alert, oriented x 3; PERRL, EOMI Skin- warm & dry Laboratory Results: Last 24 Hours Test 05/15/17 16:46 05/15/17 20:20 05/16/17 05:32 05/16/17 07:57 Bedside Glucose 129 mg/dl 227 mg/dl 129 mg/dl White Blood Count 6.42 K/uL Red Blood Count 3.36 M/uL Hemoglobin 9.4 g/dL Hematocrit 30.9 % Mean Corpuscular Volume 92.0 fL Mean Corpuscular Hemoglobin 28.0 pg Mean Corpuscular Hemoglobin Concent 30.4 g/dl RDW Standard Deviation 45.6 fL RDW Coefficient of Variation 13.6 % Platelet Count 152 K/uL Mean Platelet Volume 8.9 fL Sodium Level 140 mmol/L Potassium Level 4.4 mmol/L Chloride Level 96 mmol/L Carbon Dioxide Level 43 mmol/L Anion Gap 1.0 mmol/L Blood Urea Nitrogen 20 mg/dl Creatinine 0.76 mg/dl Est Creatinine Clear Calc Drug Dose 75.5 ml/min Estimated GFR () 93.4 Estimated GFR (Non- 80.6 BUN/Creatinine Ratio 26.5 Random Glucose 134 mg/dl Calcium Level 8.9 mg/dl Assessment & Plan AMBULATORY DYSFUNCTION /FALL /WEAKNESS fall at home possible due to UTI vs dehydration PT/OT eval fall precaution consider inpatient rehab UTI had dysuria on admission UA + positive final urine cx grew Gardnerella- like Bacilli Received IV rocephin for 3 days will change abx to PO ceftin 500mg BID Symptom resolved PULMONARY FIBROSIS, CHRONIC HYPERCAPNIC AND HYPOXIC RESPIRATORY FAILURE at baseline uses 5l at rest with nasal canula /on activity requires 8-10 L advanced interstitial lung disease continue prednisone, Revatio, and Tracleer Pulmonology on board stable DM TYPE 2 recent Hba1C 6 on 05/14/17 Hold Metformin On Insulin coverage resume metformin on discharge HTN BP controlled Continue Lisinopril DYSLIPIDEMIA continue statin DVT PROPHYLAXIS moderate risk sub q heparin CODE STATUS DNR /DNI DISPOSITION ; will transfer to rehab today PT/OT eval requested Current Inpatient Medications: Current Inpatient Medications Medications (Trade) Dose Ordered Sig/Aurelia Route Start Time Stop Time Status Last Admin Dose Admin Acetaminophen (Tylenol Tab) 650 mg Q4H PRN PO 05/13/17 17:15 06/12/17 17:14 Al Hydrox/Mg Hydrox/Simethicone (Maalox Max Susp) 15 ml Q4H PRN PO 05/13/17 17:15 06/12/17 17:14 Magnesium Hydroxide (Milk Of Magnesia Susp) 30 ml Q6H PRN PO 05/13/17 17:15 06/12/17 17:14 Polyethylene (Miralax Powder Packet) 17 gm DAILY PRN PO 05/13/17 17:15 06/12/17 17:14 Zolpidem Tartrate (Ambien Tab) 5 mg HSZ PRN PO 05/13/17 17:15 06/12/17 17:14 Ondansetron HCl (Zofran Inj) 4 mg Q6H PRN IV 05/13/17 17:15 06/12/17 17:14 Heparin Sodium (Porcine) (Heparin Sq 5000 Unit/0.5ml) 5,000 unit Q12 SQ 05/13/17 21:00 06/12/17 20:59 Albuterol Sulfate (Ventolin 0.083% 2.5MG/3ML Neb) 2.5 mg Q6H PRN INH 05/13/17 17:30 06/12/17 17:29 Atorvastatin Calcium (Lipitor Tab) 10 mg QAM PO 05/14/17 08:00 06/13/17 08:59 05/16/17 07:54 10 MG Baclofen (Lioresal Tab) 10 mg BID PO 05/13/17 20:00 06/12/17 19:59 05/16/17 07:53 10 MG Cholecalciferol (Vitamin D Tab) 1,000 inter.unit QAM PO 05/14/17 08:00 06/13/17 08:59 05/16/17 07:54 1,000 INTER.UNIT Furosemide (Lasix Tab) 40 mg DAILY PRN PO 05/13/17 17:30 06/12/17 17:29 Lisinopril (Zestril Tab) 10 mg QAM PO 05/14/17 08:00 06/13/17 08:59 05/16/17 08:33 10 MG Multivitamins (Multivitamin Tab) 1 tab DAILY PO 05/14/17 08:00 06/13/17 08:59 05/16/17 07:54 1 TAB Paroxetine HCl (pAXil TAB) 40 mg QPM PO 05/13/17 21:00 06/12/17 20:59 05/15/17 21:10 40 MG Potassium Chloride (Klor-Con M10) 20 meq DAILY PRN PO 05/13/17 17:30 06/12/17 17:29 Prednisone (PredniSONE TAB) 20 mg Taper QAM PO 05/14/17 08:00 05/18/17 07:59 05/16/17 07:53 20 MG Sildenafil Citrate (Revatio Tab) 60 mg TID PO 05/13/17 21:00 06/12/17 20:59 05/16/17 07:53 60 MG Tramadol HCl (Ultram Tab) 50 mg Q6H PRN PO 05/13/17 17:30 06/12/17 17:29 05/16/17 08:01 50 MG Ceftriaxone Sodium 1 gm/ Dextrose 50 ml @ 100 mls/hr Q24H IV 05/14/17 16:00 05/19/17 15:59 05/15/17 16:18 100 MLS/HR Ipratropium [place] (Atrovent 0.02% 0.5MG/2.5ML Neb) 0.5 mg Q4HWA INH 05/13/17 20:00 06/12/17 19:59 05/16/17 11:49 0.5 MG Levalbuterol (Xopenex 1.25MG/ 0.5ML Neb) 1.25 mg Q4HWA INH 05/13/17 20:00 06/12/17 19:59 05/16/17 11:49 1.25 MG Insulin Aspart (novoLOG ASPART) SLIDING SCALE If C... ACHS SC 05/13/17 21:00 06/12/17 20:59 05/16/17 08:41 3 UNITS Glucose (Glucose 40% Gel) 15-30 GRAMS 15 GRAMS... UD PRN PO 05/13/17 20:30 06/12/17 20:29 Glucose (Glucose Chew Tab) 4-8 Tablets 4 Tabl... UD PRN PO 05/13/17 20:30 06/12/17 20:29 Dextrose (Dextrose 50% 50ML Syringe) 25-50ML OF 50% DW IV FOR... UD PRN IV 05/13/17 20:30 06/12/17 20:29 Glucagon (Glucagon Inj) 1 mg UD PRN SQ 05/13/17 20:30 06/12/17 20:29 Non-Formulary Medication (Non-Formulary Patient'S Own Med) 1 ea BID PO 05/14/17 08:00 06/13/17 07:59 05/16/17 07:54 1 EA
[2017-05-16] MEDS ORDERED: XPNINS1255 INH (12:07)
[2017-05-16] MEDS ORDERED: PRED10TA PO (12:07)
[2017-05-16] MEDS ORDERED: ACET-1047 PO (12:07)
[2017-05-16] MEDS ORDERED: ATRINS INH (12:07)
--- NOTE | 2017-05-16 12:17 | Discharge Instructions ---
Discharge Instructions Date of Service May 16, 2017. Admission Reason for Admission: Uti (Urinary Tract Infection); Weakness Discharge Discharge Diagnosis / Problem: UTI, Ambulatory dysfunction/weakness, PULMONARY FIBROSIS Discharge Goals Goal(s): Decrease discomfort, Improve function, Improve disease control Activity Recommendations Activity Limitations: resume your previous activity . Instructions / Follow-Up Instructions / Follow-Up Please schedule Follow up appointment with your primary care provider once discharge from rehab Please schedule Follow up appointment with pulmonology once discharge from rehab Complete the course of the antibiotic with Ceftin Prednisone 20mg for 2 more days; then once completes, continue with your regular prednisone 10mg daily Continue oxygen supplement 5 L 02 at rest and 8-10L with ambulation continue PT/OT Fall precaution Current Hospital Diet Patient's current hospital diet: AHA Diet (Heart Healthy), Diabetes Type 2 Diet Discharge Diet Recommended Diet: Diabetes Type 2 Diet Pending Studies Studies pending at discharge: no Laboratory Results Hemoglobin A1c Test 05/14/17 06:33 Range/Units Estimated Average Glucose 126 mg/dl Hemoglobin A1c 6.0 H 4.5-5.6 % Medical Emergencies . Who to Call and When: Medical Emergencies: If at any time you feel your situation is an emergency, please call 911 immediately. . Non-Emergent Contact Non-Emergency issues call your: Primary Care Provider Call Non-Emergent contact if: you have a fever, you have any medication questions . . "Provider Documentation" section prepared by Jac Paula. . VTE Core Measure Inpt VTE Proph given/why not?: Unfractionated heparin SQ
[2017-05-16] MEDS ORDERED: CEFU1TAB35 PO (12:18)
[2017-05-16] MEDS ORDERED: CEFUROXIME AXETIL 500 MG TAB PO SCH (20:00)
--- NOTE | 2017-05-18 01:00 | Discharge Summary ---
Discharge Summary Date of Service May 18, 2017. Discharge Summary Admission Date: May 13, 2017 at 17:09 Discharge Date: May 16, 2017 Discharge Disposition: Rehab Principal Diagnosis: UTI Secondary Diagnoses/Problems: Ambulatory dysfunction Weakness PULMONARY FIBROSIS CHRONIC HYPERCAPNIC AND HYPOXIC RESPIRATORY FAILURE HTN DM TYPE 2 DYSLIPIDEMIA Consultations: PULMONARY Medication Reconciliation New Medications: Acetaminophen (Mapap) 325 Mg Tab 650 MG PO Q6H PRN for Pain or Fever for 7 Days, #56 TAB Cefuroxime Axetil (Cefuroxime Axetil) 500 Mg Tab 500 MG PO BID for 3 Days, TAB Ipratropium [place] (Ipratropium [place]) 0.5 Mg/2.5 Ml Nebu 0.5 MG INH Q6H for 7 Days Levalbuterol (Levalbuterol) 1.25 Mg/0.5 Ml Nebu 1.25 MG INH Q6H for 7 Days Changed Medications: Prednisone Tab (Prednisone) 10 Mg Tab 20 MG PO UD for 7 Days, TAB (Changed from: 10 MG; QAM) take 2 tabs daily for 2 days, then continue with the prednisone 10mg daily Continued Medications: Acetylcysteine (Acetylcysteine) 10 % Lisa INH PRN for Shortness of Breath Albuterol Sulf (Proventil 0.083% 2.5MG/3ML) 2.5 Mg/3 Ml Nebu 2.5 MG INH Q6H PRN for Shortness of Breath, EA Atorvastatin (Atorvastatin Calcium) 10 Mg Tab 10 MG PO QAM, #90 Baclofen (Baclofen) 10 Mg Tab 10 MG PO BID [place] (Tracleer) 125 Mg Tab 125 MG PO BID, 0 Refills Cholecalciferol (Vitamin D3) 1,000 Unit Tab 1 TAB PO QAM for 30 Days, #30 TAB 5 Refills Furosemide (Furosemide) 20 Mg Tab 2 TAB PO DAILY PRN for edema Lisinopril (Lisinopril) 10 Mg Tab 10 MG PO QAM Metformin Hcl (Glucophage) 500 Mg Tab 500 MG PO QAM, TAB Multivitamin (Multivitamin) Tab 1 TAB PO DAILY Paroxetine (Paxil) 40 Mg Tab 40 MG PO QPM Potassium Chloride (Micro-K Ext Rel) 10 Meq Capcr 20 MEQ PO DAILY PRN for with Lasix, CAP Sildenafil Citrate (Revatio) 20 Mg Tab 3 TABS PO TID Tramadol HCl (Tramadol HCl) 50 Mg Tab 50 MG PO Q6H PRN for Pain Discontinued Medications: Prednisone (Prednisone Tab) 20 Mg Tab 40 MG PO DAILY, #10 TAB Admission Information HPI (per Admitting provider): this is 67 yo F with advanced interstitial lung disease , Pulmonary HTN , on 5 L 02 at rest and 6-8L with ambulation , recently DX with bladder tumor, s/p excision presented to ED with worsening of weakness, fatigue , frequent fall UA grossly positive pt reports of one episode of chills and fever and nausea yesterday has chronic urinary incontinence , can not tell of increased frequency or dysuria no hematuria noted pt mentions her legs just giving away with attempt to walk -leading her to fall denies of any chest pain or dizzy spell pt has a walker and cane at home , does not use it lives with her daughter -who works most part of the day pt had fall twice 3 days back , has a large bruise on rt under arm does not recall hitting head or losing consciousness Physical Exam (per Admitting): General Appearance: + mild distress Head: normocephalic, atraumatic Eyes: PERRL, EOMI Neck: supple, thyroid normal, no carotid bruits, trachea midline Respiratory/Chest: + decreased breath sounds, + rales, + wheezing Cardiovascular: regular rate, rhythm Abdomen/GI: non tender, soft Extremities/Musculoskelatal: no pedal edema, + pertinent finding Neurologic/Psych: alert, oriented x 3 Hospital Course AMBULATORY DYSFUNCTION /FALL /WEAKNESS fall at home possible due to UTI vs dehydration PT/OT eval fall precaution consider inpatient rehab UTI had dysuria on admission UA + positive final urine cx grew Gardnerella- like Bacilli Received IV rocephin for 3 days will change abx to PO ceftin 500mg BID Symptom resolved PULMONARY FIBROSIS, CHRONIC HYPERCAPNIC AND HYPOXIC RESPIRATORY FAILURE at baseline uses 5l at rest with nasal canula /on activity requires 8-10 L advanced interstitial lung disease continue prednisone, Revatio, and Tracleer Pulmonology on board stable DM TYPE 2 recent Hba1C 6 on 05/14/17 Hold Metformin On Insulin coverage resume metformin on discharge HTN BP controlled Continue Lisinopril DYSLIPIDEMIA continue statin DVT PROPHYLAXIS moderate risk sub q heparin CODE STATUS DNR /DNI DISPOSITION ; will transfer to rehab today PT/OT eval requested Total time spent on discharge = 35 MINUTES This includes examination of the patient, discharge planning, medication reconciliation, and communication with other providers. Discharge Instructions Please take this sheet to every appointment for the next month Discharge Instructions Date of Service May 16, 2017. Admission Reason for Admission: Uti (Urinary Tract Infection); Weakness Discharge Discharge Diagnosis / Problem: UTI, Ambulatory dysfunction/weakness, PULMONARY FIBROSIS Discharge Goals Goal(s): Decrease discomfort, Improve function, Improve disease control Activity Recommendations Activity Limitations: resume your previous activity . Instructions / Follow-Up Instructions / Follow-Up Please schedule Follow up appointment with your primary care provider once discharge from rehab Please schedule Follow up appointment with pulmonology once discharge from rehab Complete the course of the antibiotic with Ceftin Prednisone 20mg for 2 more days; then once completes, continue with your regular prednisone 10mg daily Continue oxygen supplement 5 L 02 at rest and 8-10L with ambulation continue PT/OT Fall precaution Current Hospital Diet Patient's current hospital diet: AHA Diet (Heart Healthy), Diabetes Type 2 Diet Discharge Diet Recommended Diet: Diabetes Type 2 Diet Pending Studies Studies pending at discharge: no Laboratory Results Hemoglobin A1c Test 05/14/17 06:33 Range/Units Estimated Average Glucose 126 mg/dl Hemoglobin A1c 6.0 H 4.5-5.6 % Medical Emergencies . Who to Call and When: Medical Emergencies: If at any time you feel your situation is an emergency, please call 911 immediately. . Non-Emergent Contact Non-Emergency issues call your: Primary Care Provider Call Non-Emergent contact if: you have a fever, you have any medication questions . . "Provider Documentation" section prepared by Jac Paula. . VTE Core Measure Inpt VTE Proph given/why not?: Unfractionated heparin SQ <Electronically signed by Jac Paula M.D.> Signed: 05/17/17 0843 Signed: The status of this report is Signed * If report status is Draft, the document has not been finalized by the responsible provider. Additional Copies To [facility] Roxanapaige Parrish
== END 2017-05-16 13:22 | DRG 689 ==
LOC: EDBD 14:51 → C.EDC 14:52 → C.4E 17:09 → ENRESERV 17:30
PROVIDERS: ADMIT Hospitalist; ATTEND Internal Medicine
DX: N39.0 Urinary tract infection, site not specified (principal); J96.22 Acute and chronic respiratory failure with hypercapnia; J96.21 Acute and chronic respiratory failure with hypoxia; E86.0 Dehydration; J84.10 Pulmonary fibrosis, unspecified; I27.20 Pulmonary hypertension, unspecified; E78.5 Hyperlipidemia, unspecified; E11.9 Type 2 diabetes mellitus without complications; Z66 Do not resuscitate; Z99.81 Dependence on supplemental oxygen; W18.39XA Other fall on same level, initial encounter; Z87.891 Personal history of nicotine dependence; Z79.84 Long term (current) use of oral hypoglycemic drugs; Z79.52 Long term (current) use of systemic steroids

== ENCOUNTER 2017-05-27 14:26 | Inpatient (IN) | payer OTHER, MEDICARE ==
[~2017-05-27] VITALS: Ht 157.5 cm; Wt 88.2 kg
[~2017-05-27 14:26] MED LIST changes: +ACET-1047 PO; +ATRINS INH; -AZIT500T26 PO; -BUPR-79 PO; +CEFU1TAB35 PO; +LRS10 PO; -PRED20TA2 PO; +ULT50 PO; +XPNINS1255 INH
[2017-05-27 15:38] LABS: ARTERIAL BLD GAS O2 SATURATION 99.7 % (90-95); ARTERIAL BLOOD GAS BASE EXCESS 16.1 mEq/L (-9-1.8); ARTERIAL BLOOD GAS HCO3 48 mmol/L (19-24); ARTERIAL BLOOD GAS PO2 310 mm/Hg (80-95)
[2017-05-27 15:39] LABS: BASO % 0.3 %; BASO ABS # 0.02 K/uL (0-0.2); COMPLETE YES; EOS % 1.5 %; IG% 0.2 %; LYMPH % 11.7 %; LYMPH ABS # 0.72 K/uL (1.2-3.4); MEAN CELL VOLUME 93.7 fL (80-100); MEAN CORPUSCULAR HEMOGLOBIN 27.8 pg (25-34); MEAN CORPUSCULAR HGB CONC 29.7 g/dl (32-36); MEAN PLATELET VOLUME 9.9 fL (7.4-10.4); MONO % 9.4 %; NEUT % 76.9 %; PLATELET COUNT 137 K/uL (130-400); RED BLOOD COUNT 3.31 M/uL (4.2-5.4); WHITE BLOOD COUNT 6.16 K/uL (4.8-10.8)
[2017-05-27 15:42] LABS: ALLEN TEST POS (POS); O2 ADMINISTRATION 15L O2
[2017-05-27 15:47] LABS: INR 0.9 (0.9-1.1); PARTIAL THROMBOPLASTIN RATIO 0.9; PROTHROMBIN TIME (PATIENT) 10.1 SECONDS (9.0-12.0)
[2017-05-27 16:13] LABS: BLOOD UREA NITROGEN 24 mg/dl (7-18); BUN/CREATININE RATIO 35.4 (10-20); CALCIUM 9.1 mg/dl (8.5-10.1); CARBON DIOXIDE 42 mmol/L (21-32); CHLORIDE 92 mmol/L (98-107); CREATININE 0.69 mg/dl (0.60-1.20); GLUCOSE 120 mg/dl (70-99); POTASSIUM 4.3 mmol/L (3.5-5.1); SODIUM 137 mmol/L (136-145)
--- NOTE | 2017-05-27 16:13 | DIAGNOSTIC IMAGING REPORT ---
SINGLE VIEW CHEST CLINICAL HISTORY: Pneumonia. FINDINGS: An AP, portable, upright chest radiograph is compared to study dated 05/13/2017 and correlated with chest CT dated 03/10/2017. The examination is significantly degraded by portable technique and patient rotation. The examination is degraded by portable technique and patient rotation. The heart is enlarged and there is atherosclerotic calcification of the thoracic aorta. Again seen are changes of chronic interstitial lung disease with fibrotic change in the upper lobes. Superimposed patchy airspace consolidation is seen at the lung bases, right greater than left.. Small pleural effusions are noted. No pneumothorax is seen. The skeletal structures are osteopenic. The bony thorax is grossly intact. IMPRESSION: 1. Cardiomegaly without radiographic evidence of congestive failure. 2. Chronic fibrotic change in the upper lobes is similar to prior studies. 3. Suspect superimposed patchy airspace consolidation at both lung bases. Correlate clinically for evidence of pneumonia. Radiographic follow-up to resolution is recommended. 4. Suspect small pleural effusions. Electronically signed by: Juventino Hanson M.D. 05/27/2017 4:12 PM Dictated Date/Time: 05/27/2017 4:09 PM
[2017-05-27] MEDS ORDERED: PIPERACILLIN/TAZOBACTAM 4.5 GM/100ML D5W IV STA (16:18)
[2017-05-27 16:20] LABS: MANUAL MICROSCOPIC REQUIRED? YES; REVIEW REQ? NO; URINE APPEARANCE CLOUDY (CLEAR); URINE BILIRUBIN NEG (NEG); URINE COLOR YELLOW; URINE NITRITE NEG (NEG); URINE PH 5.5 (4.5-7.5); URINE SPECIFIC GRAVITY >= 1.030 (1.000-1.030); UROBILINOGEN NEG (NEG)
[2017-05-27 16:25] VITALS: PULSE 100; O2SAT 91
[2017-05-27 16:27] LABS: URINE BACTERIA 2+ (NEG); URINE MUCUS PRESENT (NONE PRSENT); URINE RBC 0-4 /hpf (0-4)
[2017-05-27] MEDS ORDERED: ACETAMINOPHEN 325 MG TAB PO PRN (17:00)
[2017-05-27] MEDS ORDERED: SODIUM CHLORIDE 0.9% 1000ML 500 ML IV ONE (17:00)
[2017-05-27] MEDS ORDERED: ONDANSETRON INJ 2 MG/ML 2 ML VIAL IV PRN (17:00)
[2017-05-27 17:04] VITALS: Ht 157.5 cm; Wt 88.2 kg
[2017-05-27] MEDS ORDERED: CONSULT PHARMACY STA (17:04)
[2017-05-27] MEDS ORDERED: MoRPHine SULFATE 2 MG/ML CARP IV ONE (17:15)
[2017-05-27] MEDS ORDERED: GLUCAGON FOR INJ 1 MG VIAL SQ PRN (17:15)
[2017-05-27] MEDS ORDERED: DEXTROSE 50% 50 ML SYR IV PRN (17:15)
[2017-05-27] MEDS ORDERED: GLUCOSE 40% GEL 15 GM TUBE PO PRN (17:15)
[2017-05-27] MEDS ORDERED: GLUCOSE 10 TABS/TUBE PO PRN (17:15)
--- NOTE | 2017-05-27 17:23 | History and Physical ---
History & Physical Date & Time of Service: May 27, 2017 at 17:22 Chief Complaint: AMS Primary Care Physician: Laney Verdugo D.O. History of Present Illness Source: patient, family, hospital records Patient is an 85 yr female with PMH of advanced interstitial lung disease, DM II , Pulmonary HTN, HTN, HLP, Chronic hypercarbic hypoxic respiratory failure on chronic oxygen dependency, on 5 L 02 at rest and 6-8L with ambulation, recently diagnosed with bladder tumor s/p excision who was recently discharged from [facility] to [facility] after being treated for UTI presents with history of worsening shortness of breath and confusion. History is limited as patient is currently in respiratory distress and confusion. Most of the history is obtained from Patient's daughter, old records and from ED staff. Patient's daughter reports that patient has been intermittently confused, lethargic and falling asleep very easily since yesterday. Also reports patient has slipped and fell this morning from her chair but denies any head trauma, LOC. Reports patient has been having urinary incontinence as well. Patient's daughter reports that she was recently prescribed baclofen and tramadol for neck pain which patient has been not taking currently. Patient was noted to be extremely shaky and weak and so was brought to ED for further management. Patient currently denies any history of chest pain. Her daughter denies any history of fever, chills, headache, abd pain, diarrhea, cough, head trauma, LOC, change in vision, slurred speech, facial deformity. Past Medical/Surgical History Medical Problems: (1) Chronic respiratory failure with hypoxia and hypercapnia Status: Chronic (2) Cor pulmonale Status: Chronic (3) DM type 2 (diabetes mellitus, type 2) Status: Chronic (4) Dyslipidemia Status: Chronic (5) HTN (hypertension) Status: Chronic (6) Pulmonary fibrosis Status: Chronic (7) Pulmonary HTN Status: Chronic Surgical Problems: (1) History of tonsillectomy Status: Chronic Family History Cardiac disorder FATHER Reviewed, Not relevant Social History Smoking Status: Former Smoker Alcohol Use: none Drug Use: none Marital Status: Housing status: lives with family Occupational Status: retired Immunizations History of Influenza Vaccine: Yes Influenza Vaccine Date: Apr 27, 2016 History of Tetanus Vaccine?: Yes Tetanus Immunization Date: May 11, 2014 History of Pneumococcal: Yes Pneumococcal Date: Apr 27, 2016 Multi-Drug Resistant Organisms History of MDRO: Yes Allergies Coded Allergies: Adhesives (Verified Allergy, Unknown, welts, 05/13/17) Levofloxacin (Unverified Allergy, Unknown, 'severe neuropathy', 05/13/17) per [facility] pulm note Home Medications Scheduled Atorvastatin (Atorvastatin Calcium), 10 MG PO QAM Baclofen (Baclofen), 10 MG PO BID Bosentan (Tracleer), 125 MG PO BID Cefuroxime Axetil (Cefuroxime Axetil), 500 MG PO BID Cholecalciferol (Vitamin D3), 1 TAB PO QAM Ipratropium [place] (Ipratropium [place]), 0.5 MG INH Q6H Levalbuterol (Levalbuterol), 1.25 MG INH Q6H Lisinopril (Lisinopril), 10 MG PO QAM Metformin Hcl (Glucophage), 500 MG PO QAM Multivitamin (Multivitamin), 1 TAB PO DAILY Paroxetine (Paxil), 40 MG PO QPM Prednisone Tab (Prednisone), 20 MG PO UD Sildenafil Citrate (Revatio), 3 TABS PO TID Scheduled PRN Acetaminophen (Mapap), 650 MG PO Q6H PRN for Pain or Fever Acetylcysteine (Acetylcysteine), INH for Shortness of Breath Albuterol Sulf (Proventil 0.083% 2.5MG/3ML), 2.5 MG INH Q6H PRN for Shortness of Breath Furosemide (Furosemide), 2 TAB PO DAILY PRN for edema Potassium Chloride (Micro-K Ext Rel), 20 MEQ PO DAILY PRN for with Lasix Tramadol HCl (Tramadol HCl), 50 MG PO Q6H PRN for Pain Review of Systems Could not be obtained secondary to patient's mental status Physical Exam Vital Signs Date Time Temp Pulse Resp B/P (MAP) Pulse Ox O2 Delivery O2 Flow Rate FiO2 05/27/17 17:04 BiPAP 15.0 40 05/27/17 16:25 100 91 40 05/27/17 16:00 97 24 150/65 94 BiPAP 40 05/27/17 15:47 97 24 128/45 99 Non-Rebreather 15.0 05/27/17 15:00 97 Non-Rebreather 05/27/17 14:33 110 05/27/17 14:32 36.7 112 25 138/85 Nasal Cannula 6.0 General Appearance: WD/WN, + moderate distress (Respiratory distress) Head: normocephalic, atraumatic Eyes: normal inspection, PERRL, EOMI ENT: normal ENT inspection, hearing grossly normal Neck: supple, trachea midline Respiratory/Chest: chest non-tender, lungs clear, + respiratory distress, + decreased breath sounds, + accessory muscle use Cardiovascular: regular rate, rhythm, no edema, no murmur, + tachycardia Abdomen/GI: normal bowel sounds, non tender, soft Back: normal inspection Extremities/Musculoskelatal: normal inspection, no pedal edema Neurologic/Psych: field sales representative II-XII nml as tested, alert, + pertinent finding ( Grossly no focal deficits. Complete neuro exam could not be performed) Skin: normal color, warm/dry Diagnostics Laboratory Results Results Past 24 Hours Test 05/27/17 14:36 05/27/17 14:50 05/27/17 15:09 05/27/17 15:23 Range/Units Bedside Glucose 118 70-90 mg/dl Urine Color YELLOW Urine Appearance CLOUDY CLEAR Urine pH 5.5 4.5-7.5 Urine Specific [place] >= 1.030 1.000-1.030 Urine Protein 1+ NEG Urine Glucose (UA) NEG NEG Urine Ketones NEG NEG Urine Occult Blood NEG NEG Urine Nitrite NEG NEG Urine Bilirubin NEG NEG Urine Urobilinogen NEG NEG Urine Leukocyte Esterase NEG NEG Urine RBC 0-4 0-4 /hpf Urine WBC 5-10 0-5 /hpf Urine Epithelial Cells 10-20 0-5 /lpf Urine Bacteria 2+ NEG Urine Hyaline Casts 5-10 0-5 /lpf Urine Mucus PRESENT NONE PRSENT White Blood Count 6.16 4.8-10.8 K/uL Red Blood Count 3.31 4.2-5.4 M/uL Hemoglobin 9.2 12.0-16.0 g/dL Hematocrit 31.0 37-47 % Mean Corpuscular Volume 93.7 80-100 fL Mean Corpuscular Hemoglobin 27.8 25-34 pg Mean Corpuscular Hemoglobin Concent 29.7 32-36 g/dl Platelet Count 137 130-400 K/uL Mean Platelet Volume 9.9 7.4-10.4 fL Neutrophils (%) (Auto) 76.9 % Lymphocytes (%) (Auto) 11.7 % Monocytes (%) (Auto) 9.4 % Eosinophils (%) (Auto) 1.5 % Basophils (%) (Auto) 0.3 % Neutrophils # (Auto) 4.74 1.4-6.5 K/uL Lymphocytes # (Auto) 0.72 1.2-3.4 K/uL Monocytes # (Auto) 0.58 0.11-0.59 K/uL Eosinophils # (Auto) 0.09 0-0.5 K/uL Basophils # (Auto) 0.02 0-0.2 K/uL RDW Standard Deviation 44.0 36.4-46.3 fL RDW Coefficient of Variation 13.0 11.5-14.5 % Immature Granulocyte % (Auto) 0.2 % Immature Granulocyte # (Auto) 0.01 0.00-0.02 K/uL Prothrombin Time 10.1 9.0-12.0 SECONDS Prothromb Time International Ratio 0.9 0.9-1.1 Activated Partial Thromboplast Time 24.5 21.0-31.0 SECONDS Partial Thromboplastin Ratio 0.9 Arterial Blood pH 7.20 7.35-7.45 Arterial Blood Partial Pressure CO2 123 35-46 mmHg Arterial Blood Partial Pressure O2 310 80-95 mm/Hg Arterial Blood HCO3 48 19-24 mmol/L Arterial Blood Oxygen Saturation 99.7 90-95 % Arterial Blood Base Excess 16.1 -9-1.8 mEq/L Arterial Blood Gas Delivery 15L O2 Adalberto Test POS POS Sodium Level 137 136-145 mmol/L Potassium Level 4.3 3.5-5.1 mmol/L Chloride Level 92 98-107 mmol/L Carbon Dioxide Level 42 21-32 mmol/L Anion Gap 2.0 3-11 mmol/L Blood Urea Nitrogen 24 7-18 mg/dl Creatinine 0.69 0.60-1.20 mg/dl Est Creatinine Clear Calc Drug Dose 83.4 ml/min Estimated GFR () 103.7 Estimated GFR (Non- 89.4 BUN/Creatinine Ratio 35.4 10-20 Random Glucose 120 70-99 mg/dl Calcium Level 9.1 8.5-10.1 mg/dl Troponin I < 0.015 0-0.045 ng/ml Test 05/27/17 16:06 Range/Units Bedside Lactic Acid Venous < 0.30 0.90-1.70 mmol/L Microbiology Results 05/27/17 Blood Culture, Received Pending 05/27/17 Blood Culture, Received Pending 05/27/17 Urine Culture, Received Pending Diagnostic Radiology CXR: 1. Cardiomegaly without radiographic evidence of congestive failure. 2. Chronic fibrotic change in the upper lobes is similar to prior studies. 3. Suspect superimposed patchy airspace consolidation at both lung bases. Correlate clinically for evidence of pneumonia. Radiographic follow-up to resolution is recommended. 4. Suspect small pleural effusions. CT head: Pending EKG EKG: NSR, sinus tachycardia Impression Assessment and Plan Acute on chronic Hypercarbic, Hypoxic Respiratory Failure HCAP Respiratory Acidosis Advanced Interstitial lung disease/Pulmonary Hypertension Chronic Oxygen dependency Admit in Tele Start broad spectrum IV antibiotics to cover for HCAP (Vanco, Zosyn, Doxy) Solu Medrol 60mg Q8H, Duonebs BiPAP for respiratory support Discussed with Pulmonology Blood cultures NPO for now Aspiration precautions Maintain Sats between 88-92% repeat ABG in AM Metabolic Encephalopathy: Likely secondary to Hypercarbia CT head pending Neuro checks Aspiration/Fall precautions Follow urine culture, UA pending DM II: Will hold oral diabetic meds Last A1c:6.0 in May 2017 ISS, basal Insulin, Accu checks Pulmonary HTN: Continue home meds HTN: Elevated likely situational Continue home meds HLP: continue statins DVT Px: Lovenox SQ Code Status: DNI/DNR: Based on my discussion with Patient's daughter (POA) and old records Disposition: Monitor in tele PT/OT, representative phlebotomy services consulted Advanced Directives Existing Living Will: Yes Existing Power of Classification Clerk: Yes VTE Prophylaxis VTE Risk Assessment Done? Y/N: Yes Risk Level: Low
[2017-05-27 18:45] VITALS: PULSE 104; O2SAT 93
[2017-05-27] MEDS ORDERED: VANCOMYCIN CONSULT ACTIVE PRN (18:45)
[2017-05-27] MEDS ORDERED: DOXYCYCLINE PHARMACY CONSULT IN PROGRESS PRN (18:45)
[2017-05-27] MEDS ORDERED: ALBUT/IPRATROP 3MG/0.5MG NEB 3 ML VIAL INH PRN (18:45)
[2017-05-27] MEDS ORDERED: PIPERACILL/TAZOBAC CONSULT ACTIVE PRN (18:45)
[2017-05-27] MEDS ORDERED: VANCOMYCIN INJ 2,000 MG in SODIUM CHLORIDE 0.9% 500ML 500 ML IV ONE (18:45)
[2017-05-27 19:15] VITALS: BP 163/72; PULSE 118; TEMP 37.5; O2SAT 90
[2017-05-27 19:26] VITALS: PULSE 102; O2SAT 93
[2017-05-27] MEDS ORDERED: ALBUT/IPRATROP 3MG/0.5MG NEB 3 ML VIAL INH SCH (20:00)
[2017-05-27] MEDS ORDERED: LEVALBUTEROL/IPRATROPIUM NEB INH PRN (20:15)
[2017-05-27] MEDS: METHYLPREDNISOLONE IV 60 MG in SYRINGE 0 ML IV SCH (20:20)
[2017-05-27] MEDS: SILDENAFIL CITRATE 20 MG TAB PO SCH (20:21)
[2017-05-27] MEDS: PAROXETINE 20 MG TAB PO SCH (20:21)
[2017-05-27 20:24] VITALS: PULSE 102; O2SAT 93
[2017-05-27] MEDS ORDERED: IPRATROPIUM BROMIDE NEB SOLN 0.02% 2.5 ML VIAL INH PRN (20:30)
[2017-05-27 20:47] LABS: ARTERIAL BLD GAS O2 SATURATION 82.1 % (90-95); ARTERIAL BLOOD GAS HCO3 47 mmol/L (19-24); ARTERIAL BLOOD GAS PO2 49 mm/Hg (80-95); ARTERIAL BLOOD GAS pH 7.39 (7.35-7.45)
[2017-05-27 20:48] LABS: ALLEN TEST POS (POS); O2 ADMINISTRATION 35%FI O2
[2017-05-27] MEDS ORDERED: LEVALBUTEROL/IPRATROPIUM NEB INH STA (20:52)
[2017-05-27] MEDS ORDERED: LEVALBUTEROL/IPRATROPIUM NEB INH SCH (21:00)
[2017-05-27] MEDS ORDERED: LEVALBUTEROL 1.25MG/0.5ML NEB INH SCH ×2 (21:00)
[2017-05-27] MEDS ORDERED: IPRATROPIUM BROMIDE NEB SOLN 0.02% 2.5 ML VIAL INH SCH ×2 (21:00)
[2017-05-27] MEDS ORDERED: INSULIN ASPART 100 UNITS/ML 3 ML PEN SC SCH (21:00)
--- NOTE | 2017-05-27 21:28 | EMERGENCY ROOM VISIT NOTE ---
History Report prepared by Emmanuel: Abiel Solares Under the Supervision of: Dr. Monty Pat M.D. First contact with patient: 14:40 Chief Complaint: ALTERED MENTAL STATUS Stated Complaint: AMS History of Present Illness The patient is a 67 year old female who presents to the Emergency Room by EMS with complaints of altered mental status beginning yesterday. She was discharged from [facility] yesterday. She was at [facility] for a week. The patient was admitted to the hospital for UTI and weakness before she was taken to [facility]. Per daughter, the patient has been confused and falling asleep extremely easily since her discharge. She states that the patient's confusion is intermittent. She states that the patient has been having problems with urinary incontinence as well. The patient's daughter notes that the patient was previously taking Tramadol and baclofen for neck pain which seems to make her tired. The patient's neck pain was present before her hospitalization. The patient's daughter believes that the patient likely was given Tramadol and baclofen at [facility]. She states that the patient was shaking and extremely weak today, prompting the call of EMS. She states that she was placed on supplemental oxygen which improved her symptoms. The patient is normally on 5- 10 L of supplemental oxygen at home for pulmonary fibrosis. The patient's daughter notes that the patient's CO2 levels typically are very high. Per nursing staff, the patient was very confused initially, but improved significantly after being placed on a non-rebreather. The patient denies fevers , headache, or chest pain. HPI limited secondary to AMS. Source of History: patient, family (daughter), nursing staff History Limited By: AMS Onset: Yesterday Quality: other (altered mental status) Timing: intermittent Modifying Factors (Relieving): oxygen Associated Symptoms: + weakness (generalized), No fevers, No headache, No chest pain Note: Additional symptoms: loss of urinary continence, shaking. Review of Systems ROS limited secondary to AMS Past Medical & Surgical Medical Problems: (1) Acute respiratory failure (2) Chronic respiratory failure with hypoxia and hypercapnia (3) Cor pulmonale (4) DM type 2 (diabetes mellitus, type 2) (5) Dyslipidemia (6) HTN (hypertension) (7) Pulmonary fibrosis (8) Pulmonary HTN (9) UTI (urinary tract infection) (10) Weakness Surgical Problems: (1) History of tonsillectomy Family History Cardiac disorder FATHER Social History Smoking Status: Former Smoker Alcohol Use: none Drug Use: none Marital Status: Housing Status: lives with family Occupation Status: retired Current/Historical Medications Scheduled Atorvastatin (Atorvastatin Calcium), 10 MG PO QAM Baclofen (Baclofen), 10 MG PO BID Bosentan (Tracleer), 125 MG PO BID Cefuroxime Axetil (Cefuroxime Axetil), 500 MG PO BID Cholecalciferol (Vitamin D3), 1 TAB PO QAM Ipratropium Winters (Ipratropium Winters), 0.5 MG INH Q6H Levalbuterol (Levalbuterol), 1.25 MG INH Q6H Lisinopril (Lisinopril), 10 MG PO QAM Metformin Hcl (Glucophage), 500 MG PO QAM Multivitamin (Multivitamin), 1 TAB PO DAILY Paroxetine (Paxil), 40 MG PO QPM Prednisone Tab (Prednisone), 20 MG PO UD Sildenafil Citrate (Revatio), 3 TABS PO TID Scheduled PRN Acetaminophen (Mapap), 650 MG PO Q6H PRN for Pain or Fever Acetylcysteine (Acetylcysteine), INH for Shortness of Breath Albuterol Sulf (Proventil 0.083% 2.5MG/3ML), 2.5 MG INH Q6H PRN for Shortness of Breath Furosemide (Furosemide), 2 TAB PO DAILY PRN for edema Potassium Chloride (Micro-K Ext Rel), 20 MEQ PO DAILY PRN for with Lasix Tramadol HCl (Tramadol HCl), 50 MG PO Q6H PRN for Pain Allergies Coded Allergies: Adhesives (Verified Allergy, Unknown, welts, 05/27/17) Levofloxacin (Unverified Allergy, Unknown, 'severe neuropathy', 05/27/17) per centervilleg pulm note Physical Exam Vital Signs Date Time Temp Pulse Resp B/P (MAP) Pulse Ox O2 Delivery O2 Flow Rate FiO2 05/27/17 17:04 BiPAP 15.0 40 05/27/17 17:00 100 24 119/68 89 BiPAP 15.0 40 05/27/17 16:25 100 91 40 05/27/17 16:00 97 24 150/65 94 BiPAP 40 05/27/17 15:47 97 24 128/45 99 Non-Rebreather 15.0 05/27/17 15:00 97 Non-Rebreather 05/27/17 14:33 110 05/27/17 14:32 36.7 112 25 138/85 Nasal Cannula 6.0 Physical Exam Constitutional: Vital signs reviewed. Eyes: Pupils are equal round reactive to light. Conjunctiva are noninjected. ENT: Pharynx is clear without erythema or exudate. Mucous membranes are moist. Neck supple without meningeal signs. Respiratory: Diffuse rales throughout both lung-spring. Breath sounds are equal bilaterally. Cardiovascular: Tachycardic rate with a regular rhythm. No rubs or gallops. GI: Soft, nondistended and nontender. Bowel sounds are present. Musculoskeletal: No peripheral edema. No lower extremity tenderness. Integumentary: No cyanosis. Neurological: Patient confused at times when supplemental oxygen reduced. The patient is awake and alert intermittently with oxygen. Cranial nerves II-XII are intact. Motor is 5 out of 5 all extremities. Sensation is intact to light touch all extremities. Psychiatric: Unable to assess. Medical Decision & Procedures ER Provider Diagnostic Interpretation: Radiology results as stated below per my review and the radiologist's interpretation: SINGLE VIEW CHEST FINDINGS: An AP, portable, upright chest radiograph is compared to study dated 05/13/2017 and correlated with chest CT dated 03/10/2017. The examination is significantly degraded by portable technique and patient rotation. The examination is degraded by portable technique and patient rotation. The heart is enlarged and there is atherosclerotic calcification of the thoracic aorta. Again seen are changes of chronic interstitial lung disease with fibrotic change in the upper lobes. Superimposed patchy airspace consolidation is seen at the lung bases, right greater than left.. Small pleural effusions are noted. No pneumothorax is seen. The skeletal structures are osteopenic. The bony thorax is grossly intact. IMPRESSION: 1. Cardiomegaly without radiographic evidence of congestive failure. 2. Chronic fibrotic change in the upper lobes is similar to prior studies. 3. Suspect superimposed patchy airspace consolidation at both lung bases. Correlate clinically for evidence of pneumonia. Radiographic follow-up to resolution is recommended. 4. Suspect small pleural effusions. Electronically signed by: Juventino Hanson M.D. 05/27/2017 4:12 PM Laboratory Results 05/27/17 15:09 Red Blood Count 3.31, Mean Corpuscular Volume 93.7, Mean Corpuscular Hemoglobin 27.8, Mean Corpuscular Hemoglobin Concent 29.7, Mean Platelet Volume 9.9, Neutrophils (%) (Auto) 76.9, Lymphocytes (%) (Auto) 11.7, Monocytes (%) (Auto) 9.4, Eosinophils (%) (Auto) 1.5, Basophils (%) (Auto) 0.3, Neutrophils # (Auto) 4.74, Lymphocytes # (Auto) 0.72, Monocytes # (Auto) 0.58, Eosinophils # (Auto) 0.09, Basophils # (Auto) 0.02 05/27/17 15:23 Test 05/27/17 14:50 05/27/17 15:09 05/27/17 15:23 05/27/17 16:06 Urine Color YELLOW Urine Appearance CLOUDY (CLEAR) Urine pH 5.5 (4.5-7.5) Urine Specific [place] >= 1.030 (1.000-1.030) Urine Protein 1+ (NEG) Urine Glucose (UA) NEG (NEG) Urine Ketones NEG (NEG) Urine Occult Blood NEG (NEG) Urine Nitrite NEG (NEG) Urine Bilirubin NEG (NEG) Urine Urobilinogen NEG (NEG) Urine Leukocyte Esterase NEG (NEG) Urine RBC 0-4 /hpf (0-4) Urine WBC 5-10 /hpf (0-5) Urine Epithelial Cells 10-20 /lpf (0-5) Urine Bacteria 2+ (NEG) Urine Hyaline Casts 5-10 /lpf (0-5) Urine Mucus PRESENT (NONE PRSENT) White Blood Count 6.16 K/uL (4.8-10.8) Red Blood Count 3.31 M/uL (4.2-5.4) Hemoglobin 9.2 g/dL (12.0-16.0) Hematocrit 31.0 % (37-47) Mean Corpuscular Volume 93.7 fL (80-100) Mean Corpuscular Hemoglobin 27.8 pg (25-34) Mean Corpuscular Hemoglobin Concent 29.7 g/dl (32-36) Platelet Count 137 K/uL (130-400) Mean Platelet Volume 9.9 fL (7.4-10.4) Neutrophils (%) (Auto) 76.9 % Lymphocytes (%) (Auto) 11.7 % Monocytes (%) (Auto) 9.4 % Eosinophils (%) (Auto) 1.5 % Basophils (%) (Auto) 0.3 % Neutrophils # (Auto) 4.74 K/uL (1.4-6.5) Lymphocytes # (Auto) 0.72 K/uL (1.2-3.4) Monocytes # (Auto) 0.58 K/uL (0.11-0.59) Eosinophils # (Auto) 0.09 K/uL (0-0.5) Basophils # (Auto) 0.02 K/uL (0-0.2) RDW Standard Deviation 44.0 fL (36.4-46.3) RDW Coefficient of Variation 13.0 % (11.5-14.5) Immature Granulocyte % (Auto) 0.2 % Immature Granulocyte # (Auto) 0.01 K/uL (0.00-0.02) Prothrombin Time 10.1 SECONDS (9.0-12.0) Prothromb Time International Ratio 0.9 (0.9-1.1) Activated Partial Thromboplast Time 24.5 SECONDS (21.0-31.0) Partial Thromboplastin Ratio 0.9 Anion Gap 2.0 mmol/L (3-11) Est Creatinine Clear Calc Drug Dose 83.4 ml/min Estimated GFR () 103.7 Estimated GFR (Non- 89.4 BUN/Creatinine Ratio 35.4 (10-20) Calcium Level 9.1 mg/dl (8.5-10.1) Troponin I < 0.015 ng/ml (0-0.045) Bedside Lactic Acid Venous < 0.30 mmol/L (0.90-1.70) Laboratory results as reviewed by me. Medications Administered Medications (Trade) Dose Ordered Sig/Aurelia Route Start Time Stop Time Status Last Admin Dose Admin Piperacillin Sod/ Tazobactam Sod (Zosyn Iv) 4.5 gm NOW STAT IV 05/27/17 16:18 05/27/17 16:19 DC 05/27/17 18:00 4.5 GM Sodium Chloride 500 ml @ 50 mls/hr Q10H ONCE IV 05/27/17 17:00 05/28/17 02:59 05/27/17 20:23 50 MLS/HR ECG Indication: altered mental status Rate (beats per minute): 104 Rhythm: sinus tachycardia Findings: T-wave inversion (lead 3), no ectopy ED Course 1441: The patient was evaluated in room C7. A complete history and physical exam was performed. 1546: I discussed the patient's blood gas with the patient's daughter. She confirms that the patient is DNI. The patient is still confused. The patient is unable to lay flat for CT. 1600: I spoke with the patient's daughter. She will discuss with her family whether the patient would like to be DNR. The patient is too confused currently to make the decision. 1618: Ordered Zosyn 4.5 gm IV. 1627: I reassessed the patient. She is agitated and attempting to remove her BiPAP. Oxygen saturation is 92% on BiPAP. I explained to the patients daughter that we cannot sedate the patient in her current state, but will likely have to place her in soft restraints. The patients daughter confirms that the patient is DNR and DNI after consultation with her family. The patient will be evaluated for further management. 1805: I checked in on the patient. She is still agitated and confused. She has pulled out her IV. Patient seen by hospitalist. I am avoiding Benzodiazapines due to risk of decreasing respiratory rate. Medical Decision This is a 67-year-old female presents with altered mental status. Differential diagnosis includes respiratory failure, hypercarbia, hypoxia, pneumonia, pulmonary fibrosis, metabolic derangement, UTI. I did perform a limited focused review of portions of the patient's old chart on the electronic medical record. The patient was admitted May 13 for UTI, generalized weakness and chronic respiratory failure from pulmonary fibrosis. She was discharged on cefuroxime. Her urine culture grew out [place]. I did evaluate the patient as noted above. The patient is presenting with altered mental status. She has not been herself since she was discharged from [facility] yesterday. Her daughter states she has been periodically sleepy and confused. She was very confused on arrival here and EMS stated that she was singing and not following commands properly in the ambulance. IV access was established. The patient was placed on a continuous managed care specialist. The patient was placed on supplemental oxygen with a nonrebreather mask and her mental status improved significantly. She was more awake and alert and was able to follow commands and answer some questions. I did order and personally review the patient's 12-lead EKG and chest x-ray as described above. Chest x- ray was concerning for possible lower lobe infiltrates. Blood cultures were ordered. I did treat the patient with Zosyn IV. I did order and review the patient's blood work as noted in the electronic medical record. Blood gas demonstrates respiratory acidosis with significant hypercapnia. I did order a CT of the head. Unfortunately the patient was able to tolerate the CT scan. She couldn't lay still and on her back. The patient is DNR/DNI according to the daughter. I therefore started the patient on BiPAP. I did speak to the food safety auditor on-call, Dr. joseph, who agreed with the BiPAP. He recommended admission to medicine for further care. I did reassess the patient multiple times. She remained confused but I could not treat her with benzodiazepines given her respiratory status. He was placed in soft restraints but unfortunate she did remove her own IV. I did discuss the case with the hospitalist and human services case manager. Medication Reconcilliation Current Medication List: was personally reviewed by me Blood Pressure Screening Patient's blood pressure: Elevated blood pressure Blood pressure disposition: Referred to PCP Consults Time Called: 1545 Consulting Physician: Dr. Joseph -Pulmonology Returned Call: [address] Joseph of Pulmonology. We discussed the patient and her results. Dr. Joseph recommends that the patient be placed on BiPAP and a blood oxygen saturation of 88-91% attempt to be maintained. He recommends admission to the hospital as well. Additional Consults: Time Called: 1615 Consulted Physician: Dr. Swapna Ortega Returned Call: 1621 Additional Comments: I spoke with Dr. Barcenas of [facility]. We discussed the patient and her results. The patient will be further evaluated by [facility]. Impression Primary Impression: Hypercapnic respiratory failure Additional Impressions: Respiratory acidosis Pulmonary fibrosis Pneumonia of both lower lobes Critical Care I have personally 35 minutes of critical care time in the direct management of this patient. This includes bedside care, interpretation of diagnostic studies and testing, discussion with consultants and patient, and other required patient management activities. This time is in excess of all separately billable procedures. Scribe Attestation The scribe's documentation has been prepared under my direct and personally reviewed by me in its entirety. I confirm that the note above accurately reflects all work, treatment, procedures, and medical decision making performed by me. Departure Information Dispostion Being Evaluated By Hospitalist Referrals Laney Verdugo D.O. (PCP) Patient Instructions My [facility] Problem Qualifiers Primary Impression: Hypercapnic respiratory failure Chronicity: acute on chronic Qualified Codes: J96.22 - Acute and chronic respiratory failure with hypercapnia Additional Impressions: Pneumonia of both lower lobes Pneumonia type: due to unspecified organism Qualified Codes: J18.9 - Pneumonia, unspecified organism
--- NOTE | 2017-05-27 21:45 | DIAGNOSTIC IMAGING REPORT ---
SINGLE VIEW CHEST CLINICAL HISTORY: Hypoxia. FINDINGS: An AP, portable, upright chest radiograph is compared to performed earlier the same day 05/27/2017 and correlated with chest CT dated 03/10/2017. The examination is significantly degraded by portable technique and patient rotation. The examination is degraded by portable technique and patient rotation. The heart is enlarged and there is atherosclerotic calcification of the thoracic aorta. Again seen are changes of chronic interstitial lung disease with fibrotic change in the upper lobes. Superimposed patchy airspace consolidation is again suggested at the lung bases, right greater than left.. Small pleural effusions are noted. No pneumothorax is seen. The skeletal structures are osteopenic. The bony thorax is grossly intact. Degenerative change and scoliosis are noted in the thoracic spine. IMPRESSION: 1. No significant change from today's earlier examination. 2. Cardiomegaly without radiographic evidence of congestive failure. 3. Chronic fibrotic change in the upper lobes is similar to prior studies. 4. Suspect superimposed patchy airspace consolidation at both lung bases. Correlate clinically for evidence of pneumonia. Radiographic follow-up to resolution is recommended. 5. Suspect small pleural effusions. Electronically signed by: Juventino Hanson M.D. 05/27/2017 9:43 PM Dictated Date/Time: 05/27/2017 9:42 PM
[2017-05-27] MEDS: ENOXAPARIN 40 MG/0.4 ML SYR SC SCH (21:57)
[2017-05-27] MEDS: DOXYCYCLINE HYCLATE 100 MG in DEXTROSE 5% 100ML IV SCH (22:15)
[2017-05-27] MEDS ORDERED: HALOPERIDOL LACTATE 5 MG/ML 1 ML VIAL IM STA (22:43)
[2017-05-27 23:24] VITALS: BP 152/75; PULSE 96; TEMP 37.1; O2SAT 99
[2017-05-28] VITALS (13 sets, daily range): BP systolic 122–150; BP diastolic 70–79; PULSE 80–93; TEMP 36.4–37.1; O2SAT 91–100
[2017-05-28] MEDS: PIPERACILL/TAZOBAC IV 4.5 GM in DEXTROSE 5% 100ML IV SCH ×4 (00:59→17:57)
[2017-05-28] MEDS: IPRATROPIUM BROMIDE NEB SOLN 0.02% 2.5 ML VIAL INH SCH ×4 (01:48→18:50)
[2017-05-28] MEDS: LEVALBUTEROL 1.25MG/0.5ML NEB INH SCH ×2 (01:48→08:55)
[2017-05-28] MEDS: METHYLPREDNISOLONE IV 60 MG in SYRINGE 0 ML IV SCH ×3 (04:29→20:45)
[2017-05-28] MEDS ORDERED: NURSING VERBAL MED ORDER ONE ×2 (06:15→23:00)
[2017-05-28] MEDS: LEVALBUTEROL 1.25MG/0.5ML NEB INH PRN ×3 (07:10→18:50)
[2017-05-28 07:22] LABS: HEMATOCRIT 27.5 % (37-47); MEAN CELL VOLUME 91.1 fL (80-100); MEAN CORPUSCULAR HEMOGLOBIN 27.8 pg (25-34); MEAN CORPUSCULAR HGB CONC 30.5 g/dl (32-36); MEAN PLATELET VOLUME 9.9 fL (7.4-10.4); PLATELET COUNT 127 K/uL (130-400); RED BLOOD COUNT 3.02 M/uL (4.2-5.4); WHITE BLOOD COUNT 4.51 K/uL (4.8-10.8)
[2017-05-28 07:25] LABS: ARTERIAL BLD GAS O2 SATURATION 97.5 % (90-95); ARTERIAL BLOOD GAS BASE EXCESS 15.9 mEq/L (-9-1.8); ARTERIAL BLOOD GAS HCO3 44 mmol/L (19-24); ARTERIAL BLOOD GAS PO2 136 mm/Hg (80-95); ARTERIAL BLOOD GAS pH 7.33 (7.35-7.45)
[2017-05-28 07:29] LABS: ALLEN TEST POS (POS); O2 ADMINISTRATION 50%
[2017-05-28 07:49] LABS: BUN/CREATININE RATIO 32.2 (10-20); CREATININE 0.77 mg/dl (0.60-1.20); MAGNESIUM 1.8 mg/dl (1.8-2.4); POTASSIUM 4.5 mmol/L (3.5-5.1)
[2017-05-28] MEDS: VANCOMYCIN INJ 1,250 MG in SODIUM CHLORIDE 0.9% 250ML 250 ML IV SCH ×2 (08:32→22:30)
[2017-05-28] MEDS: DOXYCYCLINE HYCLATE 100 MG in DEXTROSE 5% 100ML IV SCH ×2 (08:32→20:28)
[2017-05-28] MEDS: SILDENAFIL CITRATE 20 MG TAB PO SCH ×3 (08:32→20:17)
--- NOTE | 2017-05-28 08:52 | Progress Note ---
Internal Med Progress Note Date of Service: May 28, 2017. Provider Documentation: SUBJECTIVE: patient seen and examined with the family members at bedside. patient tachypneic on BIPAP but able to speak in sentences. Patient insists that despite being on BIPAP that she wants to eat food. I have explained to her that there is a risk for aspiration if she is tachypneic or struggling to breath off the BIPAP while eating because she may actually be BIPAP dependent at this time. Patient insists on having food and acknowledges the risk of aspiration with her family present. I explained to the nursing staff and patient and patient family that if patient is tachypneic off BIPAP, the food needs to be stopped and patient will have to be returned to supportive breathing treatments OBJECTIVE: General Appearance: + moderate distress (Respiratory distress) Head: normocephalic, atraumatic Eyes: normal inspection, EOMI ENT: normal ENT inspection, hearing grossly normal Neck: no JVD, trachea midline Respiratory/Chest: + respiratory distress, + decreased breath sounds, + accessory muscle use Cardiovascular: regular rate, rhythm, no edema Abdomen/GI: normal bowel sounds, non tender, soft Back: normal inspection Extremities/Musculoskelatal: normal inspection, no pedal edema Neurologic/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 Complete neuro exam could not be performed) Skin: normal color, warm/dry ASSESSMENT & PLAN: Acute on chronic Hypercarbic, Hypoxic Respiratory Failure HCAP Respiratory Acidosis Advanced Interstitial lung disease/Pulmonary Hypertension Chronic Oxygen dependency Admit in Tele Start broad spectrum IV antibiotics to cover for HCAP (Vanco, Zosyn, Doxy) Solu Medrol 60mg Q8H, Duonebs BiPAP for respiratory support Maintain Sats between 88-92% repeat ABG in AM Pulmonary Consult recommendations appreciated Mental Status: speaking while on BIPAP Likely secondary to Hypercarbia CT head was ordered on admission, but no focal neurological deficits apparent on exam UA with bacteria; Follow urine culture On Vanc/Zosyn/Doxycycline for broad empiric coverage - Pulmonary/urinary/other unknown infectious sources; likely will need antibiotics de-escalation; follow blood cultures DM II: Will hold oral diabetic meds Last A1c:6.0 in May 2017 ISS, basal Insulin, Accu checks Pulmonary HTN: Continue home meds Revatio HTN: Continue home meds Lisinopril HLP: continue statins DVT Px: Lovenox SQ Code Status: DNI/DNR Vital Signs: Date Time Temp Pulse Resp B/P (MAP) Pulse Ox O2 Delivery O2 Flow Rate FiO2 05/28/17 07:14 37.1 80 22 138/79 (98) 100 BiPAP 05/28/17 07:11 98 50 05/28/17 07:11 88 22 98 BiPAP/CPAP 50 05/28/17 04:31 36.4 90 20 150/74 (99) 99 BiPAP 05/28/17 04:00 BiPAP 50 05/28/17 02:13 86 98 50 05/28/17 02:12 86 22 98 BiPAP/CPAP 50 05/27/17 23:59 BiPAP 50 05/27/17 23:24 37.1 96 22 152/75 (100) 99 BiPAP 05/27/17 20:24 102 93 35 05/27/17 19:26 102 43 93 BiPAP/CPAP 40 05/27/17 19:15 37.5 118 22 163/72 (102) 90 BiPAP 05/27/17 18:45 104 93 40 05/27/17 18:20 105 22 133/57 89 05/27/17 17:04 BiPAP 15.0 40 05/27/17 17:00 100 24 119/68 89 BiPAP 15.0 40 05/27/17 16:25 100 91 40 05/27/17 16:00 97 24 150/65 94 BiPAP 40 05/27/17 15:47 97 24 128/45 99 Non-Rebreather 15.0 05/27/17 15:00 97 Non-Rebreather 05/27/17 14:33 110 05/27/17 14:32 36.7 112 25 138/85 Nasal Cannula 6.0 Lab Results: Results Past 24 Hours Test 05/27/17 14:36 05/27/17 14:50 05/27/17 15:09 05/27/17 15:23 Range/Units Bedside Glucose 118 70-90 mg/dl Urine Color YELLOW Urine Appearance CLOUDY CLEAR Urine pH 5.5 4.5-7.5 Urine Specific [place] >= 1.030 1.000-1.030 Urine Protein 1+ NEG Urine Glucose (UA) NEG NEG Urine Ketones NEG NEG Urine Occult Blood NEG NEG Urine Nitrite NEG NEG Urine Bilirubin NEG NEG Urine Urobilinogen NEG NEG Urine Leukocyte Esterase NEG NEG Urine RBC 0-4 0-4 /hpf Urine WBC 5-10 0-5 /hpf Urine Epithelial Cells 10-20 0-5 /lpf Urine Bacteria 2+ NEG Urine Hyaline Casts 5-10 0-5 /lpf Urine Mucus PRESENT NONE PRSENT White Blood Count 6.16 4.8-10.8 K/uL Red Blood Count 3.31 4.2-5.4 M/uL Hemoglobin 9.2 12.0-16.0 g/dL Hematocrit 31.0 37-47 % Mean Corpuscular Volume 93.7 80-100 fL Mean Corpuscular Hemoglobin 27.8 25-34 pg Mean Corpuscular Hemoglobin Concent 29.7 32-36 g/dl Platelet Count 137 130-400 K/uL Mean Platelet Volume 9.9 7.4-10.4 fL Neutrophils (%) (Auto) 76.9 % Lymphocytes (%) (Auto) 11.7 % Monocytes (%) (Auto) 9.4 % Eosinophils (%) (Auto) 1.5 % Basophils (%) (Auto) 0.3 % Neutrophils # (Auto) 4.74 1.4-6.5 K/uL Lymphocytes # (Auto) 0.72 1.2-3.4 K/uL Monocytes # (Auto) 0.58 0.11-0.59 K/uL Eosinophils # (Auto) 0.09 0-0.5 K/uL Basophils # (Auto) 0.02 0-0.2 K/uL RDW Standard Deviation 44.0 36.4-46.3 fL RDW Coefficient of Variation 13.0 11.5-14.5 % Immature Granulocyte % (Auto) 0.2 % Immature Granulocyte # (Auto) 0.01 0.00-0.02 K/uL Prothrombin Time 10.1 9.0-12.0 SECONDS Prothromb Time International Ratio 0.9 0.9-1.1 Activated Partial Thromboplast Time 24.5 21.0-31.0 SECONDS Partial Thromboplastin Ratio 0.9 Arterial Blood pH 7.20 7.35-7.45 Arterial Blood Partial Pressure CO2 123 35-46 mmHg Arterial Blood Partial Pressure O2 310 80-95 mm/Hg Arterial Blood HCO3 48 19-24 mmol/L Arterial Blood Oxygen Saturation 99.7 90-95 % Arterial Blood Base Excess 16.1 -9-1.8 mEq/L Arterial Blood Gas Delivery 15L O2 Adalberto Test POS POS Sodium Level 137 136-145 mmol/L Potassium Level 4.3 3.5-5.1 mmol/L Chloride Level 92 98-107 mmol/L Carbon Dioxide Level 42 21-32 mmol/L Anion Gap 2.0 3-11 mmol/L Blood Urea Nitrogen 24 7-18 mg/dl Creatinine 0.69 0.60-1.20 mg/dl Est Creatinine Clear Calc Drug Dose 83.4 ml/min Estimated GFR () 103.7 Estimated GFR (Non- 89.4 BUN/Creatinine Ratio 35.4 10-20 Random Glucose 120 70-99 mg/dl Calcium Level 9.1 8.5-10.1 mg/dl Troponin I < 0.015 0-0.045 ng/ml Test 05/27/17 16:06 05/27/17 20:20 05/27/17 20:26 05/27/17 20:28 Range/Units Bedside Lactic Acid Venous < 0.30 0.90-1.70 mmol/L Bedside Glucose 150 70-90 mg/dl Magnesium Level 1.9 1.8-2.4 mg/dl Arterial Blood pH 7.39 7.35-7.45 Arterial Blood Partial Pressure CO2 79 35-46 mmHg Arterial Blood Partial Pressure O2 49 80-95 mm/Hg Arterial Blood HCO3 47 19-24 mmol/L Arterial Blood Oxygen Saturation 82.1 90-95 % Arterial Blood Base Excess 19.0 -9-1.8 mEq/L Arterial Blood Gas Delivery 35%FI O2 Adalberto Test POS POS Test 05/28/17 04:28 05/28/17 05:58 05/28/17 06:51 05/28/17 07:01 Range/Units Bedside Glucose 164 143 70-90 mg/dl White Blood Count 4.51 4.8-10.8 K/uL Red Blood Count 3.02 4.2-5.4 M/uL Hemoglobin 8.4 12.0-16.0 g/dL Hematocrit 27.5 37-47 % Mean Corpuscular Volume 91.1 80-100 fL Mean Corpuscular Hemoglobin 27.8 25-34 pg Mean Corpuscular Hemoglobin Concent 30.5 32-36 g/dl RDW Standard Deviation 43.1 36.4-46.3 fL RDW Coefficient of Variation 12.8 11.5-14.5 % Platelet Count 127 130-400 K/uL Mean Platelet Volume 9.9 7.4-10.4 fL Sodium Level 139 136-145 mmol/L Potassium Level 4.5 3.5-5.1 mmol/L Chloride Level 94 98-107 mmol/L Carbon Dioxide Level 47 21-32 mmol/L Anion Gap -2.0 3-11 mmol/L Blood Urea Nitrogen 25 7-18 mg/dl Creatinine 0.77 0.60-1.20 mg/dl Est Creatinine Clear Calc Drug Dose 72.1 ml/min Estimated GFR () 92.0 Estimated GFR (Non- 79.3 BUN/Creatinine Ratio 32.2 10-20 Random Glucose 158 70-99 mg/dl Calcium Level 9.0 8.5-10.1 mg/dl Magnesium Level 1.8 1.8-2.4 mg/dl Arterial Blood pH 7.33 7.35-7.45 Arterial Blood Partial Pressure CO2 86 35-46 mmHg Arterial Blood Partial Pressure O2 136 80-95 mm/Hg Arterial Blood HCO3 44 19-24 mmol/L Arterial Blood Oxygen Saturation 97.5 90-95 % Arterial Blood Base Excess 15.9 -9-1.8 mEq/L Arterial Blood Gas Delivery 50% Adalberto Test POS POS Microbiology Results 05/27/17 Blood Culture, Received Pending 05/27/17 Blood Culture, Received Pending 05/27/17 Urine Culture, Received Pending
[2017-05-28] MEDS ORDERED: ATORVASTATIN 10 MG TAB PO SCH (09:00)
[2017-05-28] MEDS ORDERED: LISINOPRIL 10 MG TAB PO SCH (09:00)
[2017-05-28] MEDS ORDERED: INSULIN GLARGINE SOLOSTAR 100 UNITS/ML 3 ML PEN SC SCH (09:00)
[2017-05-28 10:26] LABS: ARTERIAL BLD GAS O2 SATURATION 94.3 % (90-95); ARTERIAL BLOOD GAS BASE EXCESS 16.5 mEq/L (-9-1.8); ARTERIAL BLOOD GAS HCO3 43 mmol/L (19-24); ARTERIAL BLOOD GAS PO2 82 mm/Hg (80-95); ARTERIAL BLOOD GAS pH 7.42 (7.35-7.45)
[2017-05-28] MEDS ORDERED: LORAZEPAM 2 MG/ML 1 ML VIAL IV STA (10:39)
[2017-05-28 10:40] LABS: URINE APPEARANCE TURBID (CLEAR); URINE BILIRUBIN NEG (NEG); URINE COLOR YELLOW; URINE EPITHELIAL CELL AUTO >30 /lpf (0-5); URINE NITRITE NEG (NEG); URINE SPECIFIC GRAVITY 1.025 (1.000-1.030); UROBILINOGEN NEG (NEG); ZZURINE CULT IF INDIC CATH YES
[2017-05-28 10:41] LABS: MANUAL MICROSCOPIC REQUIRED? NO; REVIEW REQ? YES
[2017-05-28] MEDS ORDERED: LORAZEPAM 2 MG/ML 1 ML VIAL ONE (10:43)
[2017-05-28 10:58] LABS: ALLEN TEST POS (POS); O2 ADMINISTRATION 40%
[2017-05-28] MEDS: INSULIN ASPART 100 UNITS/ML 3 ML PEN SC SCH ×3 (12:05→20:51)
--- NOTE | 2017-05-28 12:13 | Pharmacy Progress Note ---
Pharmacy Abx Dose Short Note Date of Service May 28, 2017. Assessment & Plan Item Value Date Time Blood Culture Received 05/27/17 1509 Blood Pending Blood Culture Received 05/27/17 1509 Blood Pending Urine Culture Received 05/27/17 1450 Urine,Catheterized Pending Creatinine 0.77 mg/dl 05/28/17 0651 Est Creatinine Clear Calc Drug Dose 72.1 ml/min 05/28/17 0651 Creatinine 0.69 mg/dl 05/27/17 1523 Est Creatinine Clear Calc Drug Dose 83.4 ml/min 05/27/17 1523 Assessment * 67 year old female receiving vanc/zosyn/doxy-iv for HCAP coverage * Day # 2/7 of antimicrobial therapy. * Blood & urine cultures pending Plan Vancomycin * Estimated p'kinetics: Vd~0.7L/kg, Ke~0.07hr-1, T1/2~11hr * LOADING DOSE: Vanc 2000mg (~21mg/kg) IV x 1 then, * MAINTENANCE DOSE: VANC 1250mg (~14mg/kg) IV q 14 hours * Goal trough level: 15 to 20 mcg/mL * VANC Trough level @ Css prior to 05/29 1200 dose. Zosyn-IV: 4.5 grams IV every 6 hours for HCAP and est GFR >40mL/min Doxy-IV: 100mg IV every 12 hours Pharmacy will continue to follow and will adjust dose/frequency as necessary. Thank you.
--- NOTE | 2017-05-28 14:41 | PULMONARY CONSULTATION ---
DATE OF CONSULTATION: 05/28/2017 REASON FOR CONSULTATION: Acute on chronic hypoxemic hypercarbic respiratory failure in a patient with advanced interstitial lung disease. HISTORY OF PRESENT ILLNESS: A 67-year-old white female, well known to me from outpatient practice, having begun to treat her 8 years ago when she presented after moving in with her daughter from [place] and establishing her care with us. 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 She was admitted at this time in [facility] on 5 liters of oxygen and 6-8 liters with ambulation. She also has a history of a bladder neoplasm status post excision and a lengthy hospitalization, both here and at [facility] where she was treated for urinary tract infection. According to the family and I spoke with all 3 of the 4 children who were in attendance, one who lives locally and the other 2 from [place], that patient has been progressively more confused since her discharge from [facility]. She has been in respiratory distress most of the time and easily falls asleep when in the middle of conversations, etc. She has been incontinent of urine and been prescribed baclofen and tramadol for neck pain as well. She came in on the markedly agitated and using the accessory muscles of respiration. She was placed on BiPAP therapy with oxygen at 15 liters and the IPAP/EPAP settings have been adjusted as of this morning. She was given morphine earlier, prior to my seeing her and I received a briefing from her [facility] hospitalist, Dr. Tao prior to my attending to patient by bedside. Chest x-ray showed cardiomegaly without overt signs of CHF with chronic fibrotic changes in the upper lobes and a patchy airspace consolidation at both bases, suspicious for pneumonia with small pleural effusions. She was not oriented and was too confused to undergo CAT scanning of the chest. According to the hospitalist and nursing staff, her last CAT scan was on 03/10/2017 and I did review that and this was in comparison to previous CAT scan in 2013. There was no evidence of pulmonary thromboembolic disease. There was evidence of bronchiectasis, ground-glass densities and scattered patchy and linear consolidative airspace opacities favoring chronic interstitial lung disease, may be slightly improved from 2014, but there was a new area of focal airspace opacity within the right lower lobe along with changes of moderate emphysema and pulmonary arterial hypertension. The patient has a [id number] smoking history, having quit well over 2 decades ago. No other additional history is obtainable currently. The urine on the grew out Gardnerella like bacillus. Blood cultures currently are pending. Sputum culture was not obtained. Current white count 4500, H&H 8.4 and 27.5, down from 9.0 and 30.5 from 05/14/2017. Calculated CO2 of 47. ABGs: pH 7.42, pCO2 of 68, pO2 of 82 on 40% FIO2 and current BiPAP setting. Details of past medical history, medications, family and social history, I refer you to current and past record. 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 Last cardiac echo 03/03/2017, LVEF of 55-60%. PFTs last done in 2016, FEV1/FVC ratio of 96%. Total lung capacity was only 45% of predicted. DLCO was 26%. MEDICATIONS: Tracleer was initiated in 2003 along with Esbriet started in 2013, but stopped secondary to side effect profile. The patient was begun on Revatio with the dosage titrated. She has had a previous history of Pseudomonas infection as well as aspergillosis. She has been treated for obstructive sleep apnea with BiPAP and current O2. PHYSICAL EXAMINATION: GENERAL: Reveals a cushingoid white female, not responding to my prompting and questioning with labored respirations. CURRENT VITAL SIGNS: Temperature 36.6, pulse 84 and regular, respiratory rate 20, blood pressure 142/71, O2 sat 98% on current FIO2/BiPAP setting. SKIN: Warm and dry. Flushed facies. HEENT: Atraumatic, normocephalic. PERRLA. EOMI. Conjunctivae pale. Sclerae nonicteric. Fundi poorly visualized. Neck veins not distended at 45 degrees. No adenopathy in the supra or infraclavicular areas. LUNGS: Velcro rales at the bases with more shallow inspiratory effort. Chronic coarse large airway rhonchi. CARDIAC: Regular rhythm. I do not appreciate a gallop. ABDOMEN: Soft, protuberant. EXTREMITIES: Trace to +1 pitting edema. No clubbing or peripheral cyanosis. NEUROLOGICAL: Cannot fully evaluate, was recently given morphine. OVERALL ASSESSMENT: A 67-year-old white female with a history of progressive idiopathic pulmonary fibrosis with pulmonary hypertension, probable pneumonitis, compromising patient's already compromised respiratory status. She is clearly exhibiting signs of acute on chronic hypoxemic and hypercarbic respiratory failure. I had a lengthy discussion with the family, 3 of the 4 children who were in attendance and agree with current form of therapy but also treatment of her agitation with morphine and/or anxiolytics, as clearly the patient is showing signs of acute on chronic respiratory failure. I think comfort measures are critical here and the family is in agreement and I would not make any changes in her medication. She is currently a do not resuscitate. She possesses a do not resuscitate status. Total agreement with that. She has lived 14 years toward knowledge with this disease, 8 of which were under the care of providers at our clinic who know her well as I do. She is exhibiting signs and symptoms of the natural history of her disease and I reviewed her medications and find them appropriate but would also make sure that she is kept comfortable during the treatment of her acute process. Overall prognosis is poor. MTDD
[2017-05-28] MEDS ORDERED: MoRPHine SULFATE 2 MG/ML CARP IV PRN (16:00)
[2017-05-28] MEDS: TRACLEER 125 MG PO SCH ×2 (19:47→20:18)
[2017-05-28] MEDS: PAROXETINE 20 MG TAB PO SCH (20:18)
[2017-05-28] MEDS: ENOXAPARIN 40 MG/0.4 ML SYR SC SCH (20:45)
--- NOTE | 2017-05-28 22:58 | Progress Note ---
Internal Med Progress Note Date of Service: May 28, 2017. Provider Documentation: Made aware by RN of patient removal of her BiPAP mask. As per RN, patient verbalized that she didn't want to wear the mask anymore; that she was tired and that she just wanted to be comfortable. One daughter present at bedside. After conferring with other family members, patient daughter requested for comfort measures and withdrawal of care. Vital Signs: Date Time Temp Pulse Resp B/P (MAP) Pulse Ox O2 Delivery O2 Flow Rate FiO2 05/29/17 08:00 Nasal Cannula 6.0 05/29/17 01:29 103 24 96 Nasal Cannula 6.0 05/28/17 20:00 BiPAP 50 05/28/17 19:00 36.8 93 20 122/71 (88) 96 BiPAP 05/28/17 18:52 93 93 35 05/28/17 18:50 93 24 93 BiPAP/CPAP 35 05/28/17 15:50 BiPAP 50 05/28/17 15:47 36.5 84 22 131/70 (90) 98 BiPAP 05/28/17 14:06 82 98 45 05/28/17 14:06 82 22 99 BiPAP/CPAP 45 Lab Results: Results Past 24 Hours Test 05/28/17 15:50 05/28/17 20:49 Range/Units Bedside Glucose 158 214 70-90 mg/dl
[2017-05-29] MEDS ORDERED: ALBUT/IPRATROP 3MG/0.5MG NEB 3 ML VIAL INH PRN (01:15)
[2017-05-29] MEDS: LORAZEPAM 2 MG/ML 1 ML VIAL IV PRN ×3 (01:26→20:35)
[2017-05-29 01:29] VITALS: PULSE 103; O2SAT 96
[2017-05-29] MEDS: MoRPHine SULFATE 4 MG/ML 1 ML CARP\\VIAL IV PRN ×2 (03:17→09:18)
--- NOTE | 2017-05-29 06:37 | Clinical Documentation Query ---
CLINICAL DOCUMENTATION QUERY The H&P stated this patient present with AMS that was 2/2 metabolic encephalopathy from underlying hypercarbia. Since that time this documentation has fallen off record and replaced with "Mental Status: speaking while on BIPAP likely secondary to Hypercarbia." In your clinical opinion is this patient being managed for: ( ) Metabolic encephalopathy in setting of end stage pulmonary fibrosis and hypercarbic respiratory failure. ( x ) Ruled out (Please state) Patient has been mentating well when she was seen on BIPAP in the presence of hypercarbia on my exams on 05/28/17. That might have been a semantic error in writing the sentence. Also still mentating well on 05/29/17 while on nasal cannula Please clarify and document your clinical opinion in the progress notes and discharge summary. Terms such as "probable", "suspected", "likely", "questionable", "possible", or "still to be ruled out" are acceptable. IF IN AGREEMENT, YOU MUST DOCUMENT ABOVE DIAGNOSTIC STATEMENT IN DAILY PROGRESS NOTES AND DISCHARGE SUMMARY. This document is not part of the patient's record. Thank You, Ventura San, RN [phone]
[2017-05-29] MEDS: LORAZEPAM INJ 1 MG in SYRINGE 0.5 ML IV PRN ×2 (06:44→22:52)
[2017-05-29] MEDS ORDERED: INSULIN ASPART 100 UNITS/ML 3 ML PEN SC SCH (07:00)
--- NOTE | 2017-05-29 08:45 | Progress Note ---
Internal Med Progress Note Date of Service: May 29, 2017. Provider Documentation: SUBJECTIVE: patient seen and examined with the family members at bedside. As per patient's family members, the patient had taken off the BIPAP yesterday night and spoken with her family on withdrawing care. Patient transitioned from telemetry floor overnight on off the BIPAP. Breathing on Nasal cannula. Receiving prn ativan for breathing. As per night time physician Dr. Vega, these measures were instituted to provide comfort care. OBJECTIVE: General Appearance: this morning patient breathing on nasal cannula and comfortable in appearance Head: normocephalic, atraumatic Eyes: normal inspection, EOMI ENT: normal ENT inspection, hearing grossly normal Neck: no JVD, trachea midline Respiratory/Chest: decreased accessory muscle use compared to yesterday, crackles of the lung spring Cardiovascular: regular rate, rhythm, no edema Abdomen/GI: normal bowel sounds, non tender, soft Back: normal inspection Extremities/Musculoskelatal: normal inspection, no pedal edema Neurologic/Psych: awake and responding to questions Skin: normal color, warm/dry ASSESSMENT & PLAN: Ms. Archuleta is a 67 year old Female patient with advanced stages of pulmonary fibrosis and pulmonary Hypertension who was admitted for severe shortness of breath (Acute on chronic Hypercarbic, Hypoxic Respiratory Failure) . Was actively treated with BIPAP in order to reduce carbon dioxide retention as seen on arterial blood gases. CO2 on ABG was downtrending but clinically patient was still struggling to breath on the BIPAP. Was also receiving IV solumedrol for treating airway inflammation. Also was receiving IV antibiotics to Vanc/Zosyn/Doxycycline for broad empiric coverage however there does not appear to be at this time a pneumonia or UTI or positive blood cultures. Patient was evaluated by pulmonary service which offered the family potential palliative measures. Overnight between 05/28/17 and 05/29/17 patient spoken with her family on withdrawing care. Patient transitioned from telemetry floor overnight on off the BIPAP. Breathing on Nasal cannula. Receiving prn ativan for breathing. Currently measures such as treating Pulmonary HTN with Revatio, treating HTN with Lisinopril, dyslipedemia with statins, and DVT prophylaxis with Lovenox, IV antibiotics and IV Solumedrol has been discontinued. Will appreciate palliative care recommendations on whether current ativan medications are adequate. Patient may additionally benefit with morphine or morphine equivalent for comfort with breathing Code Status: DNI/DNR Vital Signs: Date Time Temp Pulse Resp B/P (MAP) Pulse Ox O2 Delivery O2 Flow Rate FiO2 05/29/17 01:29 103 24 96 Nasal Cannula 6.0 05/28/17 20:00 BiPAP 50 05/28/17 19:00 36.8 93 20 122/71 (88) 96 BiPAP 05/28/17 18:52 93 93 35 05/28/17 18:50 93 24 93 BiPAP/CPAP 35 05/28/17 15:50 BiPAP 50 05/28/17 15:47 36.5 84 22 131/70 (90) 98 BiPAP 05/28/17 14:06 82 98 45 05/28/17 14:06 82 22 99 BiPAP/CPAP 45 05/28/17 12:00 BiPAP 50 05/28/17 11:18 36.6 84 20 142/71 (94) 98 05/28/17 11:08 91 45 05/28/17 08:45 98 40 Lab Results: Results Past 24 Hours Test 05/28/17 10:00 05/28/17 10:08 05/28/17 11:13 05/28/17 15:50 Range/Units Urine Color YELLOW Urine Appearance TURBID CLEAR Urine pH 7.0 4.5-7.5 Urine Specific [place] 1.025 1.000-1.030 Urine Protein 1+ NEG Urine Glucose (UA) NEG NEG Urine Ketones 1+ NEG Urine Occult Blood TRACE NEG Urine Nitrite NEG NEG Urine Bilirubin NEG NEG Urine Urobilinogen NEG NEG Urine Leukocyte Esterase LARGE NEG Urine WBC (Auto) >30 0-5 /hpf Urine RBC (Auto) 5-10 0-4 /hpf Urine Hyaline Casts (Auto) 1-5 0-5 /lpf Urine Epithelial Cells (Auto) >30 0-5 /lpf Urine Bacteria (Auto) 1+ NEG Urine Renal Epithelial Cells 10-20 0-5 /lpf Urine Pathogenic Casts 0 /lpf Arterial Blood pH 7.42 7.35-7.45 Arterial Blood Partial Pressure CO2 68 35-46 mmHg Arterial Blood Partial Pressure O2 82 80-95 mm/Hg Arterial Blood HCO3 43 19-24 mmol/L Arterial Blood Oxygen Saturation 94.3 90-95 % Arterial Blood Base Excess 16.5 -9-1.8 mEq/L Arterial Blood Gas Delivery 40% Adalberto Test POS POS Bedside Glucose 195 158 70-90 mg/dl Test 05/28/17 20:49 Range/Units Bedside Glucose 214 70-90 mg/dl
--- NOTE | 2017-05-29 11:15 | Pulmonology Progress Note ---
Pulmonary Progress Note Date of Service May 29, 2017. Attending Dr. Alfred Subjective Patient seen and examined. Surrounded by daughters at bedside. She was just given morphine and Ativan prognosis currently sedated. She has no pain complaints at the current time. Per nursing staff, she declined BiPAP overnight and is decided to be comfort care measures only. Objective Vital signs reviewed. Currently on nasal cannula. CVS: S1-S2 regular rate and rhythm Lungs: Tachypnea, coarse breath sounds bilaterally Abdomen: Soft, nontender, nondistended bowel sounds positive Extremities: No edema, no clubbing, no cyanosis. Labs reviewed. Imaging reviewed and reviewed by me. Medications reviewed. Assessment & Plan Impression: Acute on chronic hypoxic and hypercarbic respiratory failure End-stage idiopathic pulmonary fibrosis Pulmonary hypertension Patient and family have decided that she would like to be Comfort Care measures only. She is no longer on any antibiotics or life-saving medications. Palliative care on board and following. Will sign off case today. Please contact me if you've any further questions or concerns. Data Medications: Current Inpatient Medications Medications (Trade) Dose Ordered Sig/Aurelia Route Start Time Stop Time Status Last Admin Dose Admin Morphine Sulfate (MoRPHine SULFATE INJ) 4 mg Q15M PRN IV 05/28/17 23:15 06/11/17 23:14 05/29/17 09:18 4 MG Lorazepam 1 mg/ Syringe 1 ml @ 1 mls/min Q15M PRN IV 05/28/17 23:15 06/27/17 23:14 05/29/17 06:44 1 MLS/MIN Lorazepam (Ativan Inj) 1 mg Q15M PRN IV 05/28/17 23:15 06/27/17 23:14 05/29/17 01:26 1 MG Albuterol/ Ipratropium (Duoneb) 3 ml Q2H PRN INH 05/29/17 01:15 06/28/17 01:14 05/29/17 01:29 3 ML Vital Signs: Date Time Temp Pulse Resp B/P (MAP) Pulse Ox O2 Delivery O2 Flow Rate FiO2 05/29/17 01:29 103 24 96 Nasal Cannula 6.0 05/28/17 20:00 BiPAP 50 05/28/17 19:00 36.8 93 20 122/71 (88) 96 BiPAP 05/28/17 18:52 93 93 35 05/28/17 18:50 93 24 93 BiPAP/CPAP 35 05/28/17 15:50 BiPAP 50 05/28/17 15:47 36.5 84 22 131/70 (90) 98 BiPAP 05/28/17 14:06 82 98 45 05/28/17 14:06 82 22 99 BiPAP/CPAP 45 05/28/17 12:00 BiPAP 50 05/28/17 11:18 36.6 84 20 142/71 (94) 98 05/28/17 11:08 91 45 Laboratory Results: Last 24 Hours Test 05/28/17 11:13 05/28/17 15:50 05/28/17 20:49 Bedside Glucose 195 mg/dl 158 mg/dl 214 mg/dl
--- NOTE | 2017-05-29 16:04 | Palliative Care Consultation ---
Consultation Date of Consultation: May 29, 2017. Requesting Physician: Dr. Tao Attending Physician: Dr. Tao Reason for Consultation: Comfort care History of Present Illness This 67 year old female patient with PMH advanced/severe idiopathic pulmonary fibrosis, DM, pulmonary htn, htn, chronic respiratory failure, and others listed below, presented to the ED two days ago with c/o SOB and confusion. She came here from [facility], where she was following a stay here at [facility] when she was treated for UTI and chronic respiratory failure. Patient has been dependent on Bipap since admission and apparently had not shown any improvement despite treatment. Last evening, patient was adamantly voicing her wishes to discontinue bipap, medical treatment and wished to transition to comfort measures only. Palliative care consulted. I met with the patient and her two daughters, Daya and the other whose name I did not catch. Patient is sleepy, but awake and oriented x4. Patient confirmed to me, with her daughters present, that she has fought long enough and no longer wishes to undergo any aggressive medical care. Her goal is to be comfortable, not wear Bipap, and to allow nature to take its course. Daughter, Daya, agreed that patient has had 14 years of dealing with her pulmonary fibrosis, and she has "fought the good fight." Daughters are supportive of patient's decision. See plan below. Past Medical/Surgical History Medical History: as above HLD/dyslipidemia Cor pulmonale Social History Smoking Status: Former Smoker History of Alcohol Use: No Drug Use: none Marital Status: Housing Status: lives with family Occupation Status: retired Review of Systems Constitutional: + weakness, + fatigue ENT: No trouble swallowing Respiratory: + dyspnea on exertion, No cough, No wheezing Cardiac: No chest pain, No edema Abdomen: No pain, No nausea, No vomiting Musculoskeletal: + problem reported (neck pain occasionally) Female : No problem reported (has Alfred catheter) Psychiatric: No depression symptoms, No anxiety Allergies Coded Allergies: Adhesives (Verified Allergy, Unknown, welts, 05/27/17) Levofloxacin (Unverified Allergy, Unknown, 'severe neuropathy', 05/27/17) [facility] Medications Current Inpatient Medications Medications (Trade) Dose Ordered Sig/Aurelia Route Start Time Stop Time Status Last Admin Dose Admin Morphine Sulfate (MoRPHine SULFATE INJ) 4 mg Q15M PRN IV 05/28/17 23:15 06/11/17 23:14 05/29/17 09:18 4 MG Lorazepam 1 mg/ Syringe 1 ml @ 1 mls/min Q15M PRN IV 05/28/17 23:15 06/27/17 23:14 05/29/17 06:44 1 MLS/MIN Lorazepam (Ativan Inj) 1 mg Q15M PRN IV 05/28/17 23:15 06/27/17 23:14 05/29/17 01:26 1 MG Albuterol/ Ipratropium (Duoneb) 3 ml Q2H PRN INH 05/29/17 01:15 06/28/17 01:14 05/29/17 01:29 3 ML Physical Exam Date Time Temp Pulse Resp B/P (MAP) Pulse Ox O2 Delivery O2 Flow Rate FiO2 05/29/17 08:00 Nasal Cannula 6.0 05/29/17 01:29 103 24 96 Nasal Cannula 6.0 05/28/17 20:00 BiPAP 50 05/28/17 19:00 36.8 93 20 122/71 (88) 96 BiPAP 05/28/17 18:52 93 93 35 05/28/17 18:50 93 24 93 BiPAP/CPAP 35 05/28/17 15:50 BiPAP 50 05/28/17 15:47 36.5 84 22 131/70 (90) 98 BiPAP 05/28/17 14:06 82 98 45 05/28/17 14:06 82 22 99 BiPAP/CPAP 45 General Appearance: no apparent distress, + obese ENT: hearing grossly normal Neck: supple, no JVD Respiratory: no respiratory distress, + decreased breath sounds, + accessory muscle use, + wheezing (faint expiratory wheezing) Cardiovascular: regular rate, rhythm, + normal peripheral pulses Abdomen: normal bowel sounds, non tender, soft Neurologic/Psychiatric: normal mood/affect, oriented x 3, + pertinent finding ( tired but awake) Skin: normal color Laboratory Results Last 24 Hours Test 05/28/17 15:50 05/28/17 20:49 Bedside Glucose 158 mg/dl 214 mg/dl Assessment & Plan Palliative Performance Scale: 30 % Problem list: SOB Weakness Altered mental status- likely from hypercarbia Chronic hypoxic/hypercarbic respiratory failure Severe/end-stage pulmonary fibrosis/interstitial lung disease Goals of care (Z51.5) Palliative care recs: discussed with patient, daughters, and Dr. Tao. -Comfort measures only. Is already ordered as DNR/level 5. -Patient does not wish to wear bipap any longer. -Patient's mental status, mood and comfort have all seemed to improve since the decision was made for "comfort measures only" per the two daughters. -Uncertain of how patient will do. She appears SOB to me and is requiring PRN morphine and Ativan for comfort. I would not be surprised if patient decompensates very quickly in the next hours to days. -Patient would be agreeable to hospice care at a SNF if she is well enough for transfer. Will reassess tomorrow. -Support given to patient and family. -Change morphine to 2-4mg IV Q1h PRN. Continue other meds as ordered. Thank you kindly for this consult. I will follow.
[2017-05-29] MEDS: MoRPHine SULFATE 2 MG/ML CARP IV PRN ×4 (16:37→22:53)
[2017-05-29 20:00] VITALS: O2SAT 96
[2017-05-29] MEDS ORDERED: NURSING DECISION MEDICATION ORDER SCH (20:00)
[2017-05-29] MEDS ORDERED: MICONAZOLE NITRATE POWDER 43 GM EXT PRN (20:00)
[2017-05-30] MEDS: MoRPHine SULFATE 2 MG/ML CARP IV PRN ×7 (00:03→16:35)
[2017-05-30 01:21] VITALS: O2SAT 96
[2017-05-30] MEDS: LORAZEPAM INJ 1 MG in SYRINGE 0.5 ML IV PRN ×5 (01:56→20:49)
--- NOTE | 2017-05-30 14:25 | Palliative Care Progress Note ---
Palliative Care Progress Note Date of Service May 30, 2017. Subjective Pt evaluation today including: conversation w/ family (daughters Daya and Karina, grandson Jeffery), physical exam, chart review, review of inpatient medication list Pain: unable to assess. no signs of pain or SOB PO Intake: none Voiding: jaimes catheter in place Patient is obtunded today. No S/S of pain. Does have some labored breathing at times-- nursing is giving PRN morphine. Review of Systems unable to obtain ROS due to obtundation Objective Vital Signs Date Time Temp Pulse Resp B/P (MAP) Pulse Ox O2 Delivery O2 Flow Rate FiO2 05/30/17 08:00 Nasal Cannula 6.0 05/30/17 01:21 96 Nasal Cannula 6.0 05/29/17 20:00 96 Nasal Cannula 6.0 05/29/17 16:00 Nasal Cannula 6.0 Physical Exam General Appearance: no apparent distress, + obese Neck: supple, no JVD Respiratory/Chest: no respiratory distress, no accessory muscle use, + decreased breath sounds, + rhonchi (less coarse today) Cardiovascular: regular rate, rhythm, no edema Abdomen: normal bowel sounds, soft Neurologic/Psychiatric: + pertinent finding (obtunded) Skin: + mottled (left foot) Assessment and Plan Problem list: SOB Weakness Altered mental status- likely from hypercarbia Chronic hypoxic/hypercarbic respiratory failure Severe/end-stage pulmonary fibrosis/interstitial lung disease Goals of care (Z51.5) Palliative care recs: -Patient has markedly declined from yesterday. -Comfort care continues. She is not stable for transfer. -Met with family in room for about 45 minutes. Support given. -Continue PRN morphine and Ativan as ordered. Thank you again for this consult. Please contact me with any further palliative care needs. Palliative Performance Scale: 10 % Continued [facility] stay due to: multiple IV medications needed, home environment unsafe for pt Discharge planning: uncertain
[2017-05-30] MEDS ORDERED: NURSING VERBAL MED ORDER ONE ×7 (15:45→22:30)
[2017-05-30 16:00] VITALS: O2SAT 96
[2017-05-30] MEDS ORDERED: MORPHINE SULF/NSS 250MG/250ML IV PRN (16:00)
--- NOTE | 2017-05-30 18:50 | Progress Note ---
Medicine Progress Note Date & Time of Visit: May 30, 2017 at 14:40. Subjective Pt was seen and examined Lying in bed with son at bedside Obtunded Objective Physical Exam: General- obtunded Head- atraumatic Eyes- PERRL ENT- oropharynx clear Neck- no JVD Lungs- decrease breath sound Heart- regular rhythm Abdomen-obese Neuro- obtunded Assessment & Plan Acute on chronic hypercapnia Hypoxic respiratory failure Advanced Stages of Pulmonary Fibrosis Off bipap after family withdrawing care as per pt wish Palliative care on board Was made comfort care only on morphine and Ativan prn Code Status DNR Continued [facility] stay due to: multiple IV medications needed, home environment unsafe for pt Discharge planning: uncertain Consultants: Pulmonary Palliative care Current Inpatient Medications: Current Inpatient Medications Medications (Trade) Dose Ordered Sig/Aurelia Route Start Time Stop Time Status Last Admin Dose Admin Lorazepam 1 mg/ Syringe 1 ml @ 1 mls/min Q15M PRN IV 05/28/17 23:15 06/27/17 23:14 05/30/17 17:23 1 MLS/MIN Lorazepam (Ativan Inj) 1 mg Q15M PRN IV 05/28/17 23:15 06/27/17 23:14 05/29/17 20:35 1 MG Albuterol/ Ipratropium (Duoneb) 3 ml Q2H PRN INH 05/29/17 01:15 06/28/17 01:14 05/29/17 01:29 3 ML Morphine Sulfate (MoRPHine SULFATE INJ) 2 mg Q1H PRN IV 05/29/17 14:30 06/12/17 14:29 05/30/17 16:35 2 MG Miconazole Nitrate (Desenex Powder) 1 appln UD PRN EXT 05/29/17 20:00 06/28/17 19:59 Morphine Sulfate/ Dextrose 250 ml @ 4 mls/hr Q24H PRN IV 05/30/17 16:00 06/13/17 15:59 05/30/17 16:51 1 MLS/HR
[2017-05-30] MEDS: LORAZEPAM 2 MG/ML 1 ML VIAL IV PRN (20:47)
[2017-05-31 00:18] VITALS: O2SAT 96
--- NOTE | 2017-05-31 08:33 | Progress Note ---
Medicine Progress Note Date & Time of Visit: May 31, 2017 at 08:33. Subjective Nurse call because pt was cease to breath I went to evaluate pt She had no pulse and no heart beat on auscultation No breath sound noted Objective Physical Exam: General- Head- atraumatic Eyes- Pupils not reacting to light Lungs- No breath sound Heart- No heart rate and no pulse Assessment & Plan Acute on chronic hypercapnia Hypoxic respiratory failure Advanced Stages of Pulmonary Fibrosis Off bipap after family withdrawing care as per pt wish Palliative care on board Was made comfort care only on morphine and Ativan prn No pulse felt, no HR and no breath sound Her Pupils was fixed Pt was @ 6:45 am on 05/31/17 Code Status DNR Continued [facility] stay due to: multiple IV medications needed, home environment unsafe for pt Discharge planning: uncertain Consultants: Pulmonary Palliative care Current Inpatient Medications: Current Inpatient Medications Medications (Trade) Dose Ordered Sig/Aurelia Route Start Time Stop Time Status Last Admin Dose Admin Lorazepam 1 mg/ Syringe 1 ml @ 1 mls/min Q15M PRN IV 05/28/17 23:15 06/27/17 23:14 05/30/17 20:49 1 MLS/MIN Lorazepam (Ativan Inj) 1 mg Q15M PRN IV 05/28/17 23:15 06/27/17 23:14 05/29/17 20:35 1 MG Albuterol/ Ipratropium (Duoneb) 3 ml Q2H PRN INH 05/29/17 01:15 06/28/17 01:14 05/29/17 01:29 3 ML Morphine Sulfate (MoRPHine SULFATE INJ) 2 mg Q1H PRN IV 05/29/17 14:30 06/12/17 14:29 05/30/17 16:35 2 MG Miconazole Nitrate (Desenex Powder) 1 appln UD PRN EXT 05/29/17 20:00 06/28/17 19:59 Morphine Sulfate/ Dextrose 250 ml @ 7 mls/hr Q24H PRN IV 05/30/17 16:00 06/13/17 15:59 05/30/17 16:51 1 MLS/HR
--- NOTE | 2017-06-01 07:50 | Discharge Summary ---
Discharge Summary Date of Service Jun 01, 2017. Discharge Summary Admission Date: May 27, 2017 at 17:04 Discharge Disposition: Principal Diagnosis: Acute on chronic hypercapnia Hypoxic respiratory failure Secondary Diagnoses/Problems: Advanced Stages of Pulmonary Fibrosis Consultations: Pulmonary Palliative care Admission Information HPI (per Admitting provider): Patient is an 85 yr female with PMH of advanced interstitial lung disease, DM II , Pulmonary HTN, HTN, HLP, Chronic hypercarbic hypoxic respiratory failure on chronic oxygen dependency, on 5 L 02 at rest and 6-8L with ambulation, recently diagnosed with bladder tumor s/p excision who was recently discharged from [facility] to [facility] after being treated for UTI presents with history of worsening shortness of breath and confusion. History is limited as patient is currently in respiratory distress and confusion. Most of the history is obtained from Patient's daughter, old records and from ED staff. Patient's daughter reports that patient has been intermittently confused, lethargic and falling asleep very easily since yesterday. Also reports patient has slipped and fell this morning from her chair but denies any head trauma, LOC. Reports patient has been having urinary incontinence as well. Patient's daughter reports that she was recently prescribed baclofen and tramadol for neck pain which patient has been not taking currently. Patient was noted to be extremely shaky and weak and so was brought to ED for further management. Patient currently denies any history of chest pain. Her daughter denies any history of fever, chills, headache, abd pain, diarrhea, cough, head trauma, LOC, change in vision, slurred speech, facial deformity. Physical Exam (per Admitting): General Appearance: WD/WN, + moderate distress (Respiratory distress) Head: normocephalic, atraumatic Eyes: normal inspection, PERRL, EOMI ENT: normal ENT inspection, hearing grossly normal Neck: supple, trachea midline Respiratory/Chest: chest non-tender, lungs clear, + respiratory distress, + decreased breath sounds, + accessory muscle use Cardiovascular: regular rate, rhythm, no edema, no murmur, + tachycardia Abdomen/GI: normal bowel sounds, non tender, soft Back: normal inspection Extremities/Musculoskelatal: normal inspection, no pedal edema Neurologic/Psych: national secretary II-XII nml as tested, alert, + pertinent finding ( Grossly no focal deficits. Complete neuro exam could not be performed) Skin: normal color, warm/dry Hospital Course Acute on chronic hypercapnia Hypoxic respiratory failure Advanced Stages of Pulmonary Fibrosis Off bipap after family withdrawing care as per pt wish Palliative care on board Was made comfort care only on morphine and Ativan prn No pulse felt, no HR and no breath sound Her Pupils was fixed Pt was @ 6:45 am on 05/31/17 Code Status DNR Total time spent on discharge = 15 minutes This includes examination of the patient, discharge planning, medication reconciliation, and communication with other providers. Discharge Instructions Patient on 05/30/17 @ 6:45 am Additional Copies To Laney Verdugo D.O.
== END 2017-05-31 09:50 | disposition expired | DRG 196 ==
LOC: EDBD 14:26 → C.EDC 14:27 → C.2T 17:04 → CANRESERV 17:27 → ENRESERV 17:27 → EDBEDREQ 18:15 → C.4E 05-28 23:02 → ENRESERV 05-28 23:14 → CANRESERV 05-28 23:14 → ENRESERV 05-28 23:32
PROVIDERS: ADMIT Internal Medicine; ATTEND Internal Medicine
DX: J84.112 Idiopathic pulmonary fibrosis (principal); J96.22 Acute and chronic respiratory failure with hypercapnia; E87.2 Acidosis; J18.9 Pneumonia, unspecified organism; G93.41 Metabolic encephalopathy; J96.11 Chronic respiratory failure with hypoxia; Z51.5 Encounter for palliative care; I11.9 Hypertensive heart disease without heart failure; E11.9 Type 2 diabetes mellitus without complications; I27.20 Pulmonary hypertension, unspecified; Z87.891 Personal history of nicotine dependence; E78.5 Hyperlipidemia, unspecified; Z99.81 Dependence on supplemental oxygen; Z66 Do not resuscitate